=== PATIENT | male | born 1970 | race Caucasian/White ===

== ENCOUNTER 2023-05-23 09:56 | Inpatient (IN) ==
--- NOTE | 2023-05-23 10:02 | Emergency Department Note ---
Impression & Plan Closed hematoma of left kidney, Left renal mass ED Provider Note NAME: ANGELITA LOPEZ AGE: 53 SEX: M : 1970 ARRIVES VIA: Ambulance INFORMANT: Patient, ED PROVIDER(S): Nitesh Nelson MD CHIEF COMPLAINT: Left flank pain HPI: This is a 53-year-old male presenting for left flank pain. Patient states he noticed he had dark urine yesterday possibly bloody. He notes that he had flank pain that began this morning that was sudden onset, sharp. He notes it radiates somewhat into the anterior abdomen. He was given 50 mg of Toradol and 4 mg of Zofran by EMS. He notes no fevers or chills. No diarrhea or constipation. No chest pain or shortness of breath. ROS: See above HPI for pertinent positives & negatives. A total of 10 systems reviewed and were otherwise negative. PAST MEDICAL HISTORY: See Below PAST SURGICAL HISTORY: See Below FAMILY HISTORY: See Below SOCIAL HISTORY: See Below HOME MEDICATIONS: See Below ALLERGIES: See Below VITALS: See Below PHYSICAL EXAMINATION: General: resting comfortably in no acute distress Head: Normocephalic and atraumatic Eyes: Normal inspection, extraocular muscles intact Ear, nose, throat: Normal external exam Neck: Normal range of motion Respiratory: lungs clear to auscultation bilaterally Cardiovascular: Regular rate/rhythm, no murmur GI: soft, nontender, no guarding or rebound Extremities: nontender, moves all extremities Neuro: The patient awake and alert, appropriately conversive, no focal deficits, symmetric faces Skin: Warm, dry, and intact MEDICAL DECISION MAKING: this is a 53-year-old male presents for left flank pain. Consider renal colic, SBO, appendicitis, cholecystitis, UTI or pyelonephritis -Labs reviewed with slightly cytosis of 13.77, anemia to 11.5. Otherwise no significant electrolyte disturbances. Creatinine within normal limits. No transaminitis or lipase elevation -CT imaging of the abdomen/pelvis unfortunately reveals a left subcapsular hematoma with fairly extensive renal mass extending into the renal parenchyma and renal vein -Patient made aware of these findings, he expresses concern about his future health and requested to talk to his girlfriend about next steps -Discussed care with urology team including NATASHA and Dr. Joaquin who states that patient will likely require nephrectomy at another facility but this not emergent. Currently would require embolization if actively bleeding however otherwise would just need pain control. Patient's vital signs remained stable without hypotension. Patient notes improvement in pain as well. Will continue to monitor and admit here -Patient care section under Dr. Yanes -Discussed findings with both the patient and his girlfriend again about need for observing patient's current renal hematoma. Also advised need for follow-up for oncologic surgery/oncologist for official cancer diagnosis Differential diagnosis: See above ER treatment provided: See below Diagnostics interpreted by me: ECG: None Cardiac Monitoring: An order was placed for continuous cardiac monitoring. The monitor shows a rate of 100 with sinus rhythm. Laboratory studies: As stated above and show below. Imaging studies: See below. Past Med/Surg History Medical History (Updated 05/23/23 @ 14:54 by Nitesh Nelson MD) Insulin pump status Adjustment disorder with depressed mood Idiopathic scoliosis Spastic diplegic cerebral palsy HTN (hypertension) Hyperlipidemia Type I diabetes mellitus Surgical History (Updated 05/23/23 @ 14:13 by Jessica Yanes DO) No pertinent past surgical history Family History (Updated 05/23/23 @ 14:13 by Jessica Yanes DO) Grandmother (Paternal) Cancer Social History (Updated 05/23/23 @ 14:13 by Jessica Yanes DO) Smoking Status: Never smoker Do You Dip or Chew Tobacco: No; Hx Alcohol Use: No Hx Substance Use: No Feels Safe at Home: Yes Allergies Allergies Allergy/AdvReac Type Severity Reaction Status Date / Time Sulfa (Sulfonamide Allergy Severe HIVES AND Unverified 05/23/23 12:31 Antibiotics) RASH Home Meds Home Medications Medication Instructions Recorded Confirmed atorvastatin 20 mg tablet 20 mg PO HS 05/23/23 05/23/23 insulin aspart U-100 100 unit/mL See Rx Instructions .Route .COMPLEX 05/23/23 05/23/23 subcutaneous solution (Novolog U-100 Insulin aspart) losartan 50 mg tablet 50 mg PO QAM 05/23/23 05/23/23 metformin 500 mg tablet,extended 2,000 mg PO QAM 05/23/23 05/23/23 release 24 hr pantoprazole 20 mg tablet,delayed 20 mg PO QAM 05/23/23 05/23/23 release sertraline 50 mg tablet 50 mg PO QAM 05/23/23 05/23/23 tamsulosin 0.4 mg capsule 0.4 mg PO QAM 05/23/23 05/23/23 Results & Data (ED) Vital Signs Vital Signs - 24 hr 05/23/23 10:01 05/23/23 10:05 05/23/23 10:09 Temperature 36.7 C Temperature Source Oral Pulse Rate 104 H 104 H Pulse Rate [Right Finger] Pulse Rhythm [Right Finger] Pulse Strength [Right Finger] Respiratory Rate 18 Respiratory Effort / Characteristics Respiratory Depth Respiratory Pattern Blood Pressure 175/102 H Blood Pressure [Right Arm] Blood Pressure Mean 126 Blood Pressure Mean [Right Arm] Blood Pressure Position [Right Arm] Pulse Oximetry 92 94 Oxygen Delivery Method Room Air Room Air Sepsis Recent Fever Within 48 Hours No Sepsis New/Unexplained Change in Mental Status No Sepsis Action Taken by Nursing No Action Required 05/23/23 10:59 05/23/23 12:00 05/23/23 14:00 Temperature Temperature Source Pulse Rate Pulse Rate [Right Finger] 102 H 107 H 104 H Pulse Rhythm [Right Finger] Regular Pulse Strength [Right Finger] Normal Respiratory Rate 29 H 23 Respiratory Effort / Characteristics Non-Labored Non-Labored Spontaneous Respiratory Depth Normal Normal Respiratory Pattern Regular Blood Pressure Blood Pressure [Right Arm] 163/103 H 156/101 H 184/112 H Blood Pressure Mean Blood Pressure Mean [Right Arm] 123 119 136 Blood Pressure Position [Right Arm] Sitting Pulse Oximetry 99 96 98 Oxygen Delivery Method Room Air Room Air Sepsis Recent Fever Within 48 Hours Sepsis New/Unexplained Change in Mental Status Sepsis Action Taken by Nursing Laboratory Data 05/23/23 10:06 05/23/23 10:06 Lab Results 05/23/23 05/23/23 Range/Units 10:06 11:25 WBC 13.77 H (4.8-10.8) K/ul RBC 4.12 L (4.70-6.10) M/uL Hgb 11.5 L (14.0-18.0) g/dl Hct 35.6 L (42.0-52.0) % MCV 86.4 (80.0-100.0) fL MCH 27.9 (25.0-34.0) pg MCHC 32.3 (32.0-36.0) g/dL RDW Std Deviation 45.0 (36.4-46.3) fL RDW Coeff of [place] 14.3 (11.5-14.5) % Plt Count 516 H (130-400) K/uL MPV 9.4 (9.4-12.4) fL Immature Gran % (Auto) 0.7 % Neut % (Auto) 89.0 % Lymph % (Auto) 3.9 % Craig % (Auto) 6.2 % Eos % (Auto) 0.1 % Baso % (Auto) 0.1 % Neut # (Auto) 12.25 H (1.40-6.50) K/uL Lymph # (Auto) 0.54 L (1.20-3.40) K/uL Craig # (Auto) 0.85 H (0.11-0.59) K/uL Eos # (Auto) 0.02 (0.00-0.50) K/uL Baso # (Auto) 0.02 (0.00-0.20) K/uL Immature Gran # (Auto) 0.09 (0.01-0.20) K/uL Sodium 137 (136-145) mmol/L Potassium 3.7 (3.5-5.1) mmol/L Chloride 102 (98-107) mmol/L Carbon Dioxide 25 (21-32) mmol/L Anion Gap 10 (3-11) BUN 19 (6-23) mg/dl Creatinine 0.79 (0.6-1.4) mg/dl Est Cr Clr Drug Dosing 94.3 ml/min Est GFR ( Amer) 120.5 ml/min Est GFR (Non-Af Amer) 104.0 ml/min BUN/Creatinine Ratio 24.1 H (10-20) Glucose 238 H (70-99(Fasting)) mg/dl Calcium 8.9 (8.6-10.3) mg/dl Total Bilirubin 0.4 (0.2-1.0) mg/dl AST 14 (13-39) U/L ALT 12 (7-52) U/L Alkaline Phosphatase 104 (34-104) U/L Troponin I High Sens 4.0 (0-20) pg/ml Total Protein 7.0 (6.0-8.3) gm/dl Albumin 4.0 (3.4-5.0) gm/dl Globulin 3.0 (2.5-4.0) gm/dl Albumin/Globulin Ratio 1.3 (0.9-2) Lipase 25 (11-82) U/L Urine Color Yellow Urine Appearance Clear (Clear) Urine pH 5.0 (4.5-7.5) Ur Specific [place] 1.032 H (1.000-1.030) Urine Protein 2+ H (Negative) Urine Glucose (UA) 3+ H (Negative) Urine Ketones 2+ H (Negative) Urine Blood Trace H (Negative) Urine Nitrite Negative (Negative) Urine Bilirubin Negative (Negative) Urine Urobilinogen Negative (Negative) Ur Leukocyte Esterase Negative (Negative) Urine WBC (Auto) 10-30 H (0-5) /hpf Urine RBC (Auto) 10-30 H (0-4) /hpf U Hyaline Cast (Auto) 1-5 (0-5) /lpf U Epithel Cells (Auto) 20-30 H (0-5) /lpf Urine Bacteria (Auto) Negative (Negative) Administered Medications Discontinued Medications Ioversol (Optiray 320 100ml) 93 ml IV ONCE ONE Stop: 05/23/23 11:41 Last Admin: 05/23/23 11:41 Dose: 93 ml Documented By: RICHELLE Ketorolac Tromethamine (Ketorolac Tromethamine 15 Mg/Ml Vial) Confirm Administered Dose 15 mg .ROUTE .K-MED ONE Stop: 05/23/23 11:02 Last Admin: 05/23/23 11:01 Dose: 15 mg Documented By: CASIE Imaging Data Radiologist's Impression: Abdomen/Pelvis CT 05/23/23 10:01 CT SCAN OF THE ABDOMEN AND PELVIS WITH IV CONTRAST CLINICAL HISTORY: Left flank pain. Hematuria. COMPARISON STUDY: No priors. TECHNIQUE: Following the IV administration of 93 cc of Optiray 320, CT scan of the abdomen and pelvis is performed from the lung bases to the proximal femora. Images are reviewed in the axial, sagittal, and coronal planes. IV contrast was administered without complication. A dose lowering technique was utilized adhering to the principles of ALARA. CT DOSE: 803.35 mGy.cm FINDINGS: Lung bases: The heart is normal in size and without pericardial effusion. The coronary arteries are densely calcified. The lung bases are clear. A small hiatal hernia is noted. Liver: The contrast-enhanced liver is normal in size, contour, and attenuation. There is no intrahepatic biliary ductal dilatation. The hepatic veins and portal veins are patent. Gallbladder: Unremarkable. Spleen: Normal in size and attenuation. Pancreas: Unremarkable. Adrenal glands: Unremarkable. Kidneys: The contrast-enhanced right kidney normal in size and without hydronephrosis. The right kidney enhances normally. There is a subcapsular hemorrhage of the left kidney which measures up to 2.2 cm in thickness. This causes mass effect on the subjacent renal parenchyma. There is a heterogeneously enhancing mass in the interpolar to lower pole of the left kidney which measures 6.6 x 5.1 x 4.6 cm. There is may extend into the renal collecting system. Hyperdense material expanding the ureteropelvic junction on image #127 could represent tumor versus blood clots. There is diminished enhancement of the left kidney as compared to the right. There is evidence of left renal vein invasion on image #112. There is associated left-sided perinephric infiltration. No enhancing lesion is suggested in the right kidney. Abdominal vasculature: The abdominal aorta is normal in course and caliber. Bowel: There is moderate colonic fecal retention. No bowel obstruction is seen. The appendix is normal as visualized. A calcified appendicolith is seen on image #220. Peritoneum: There is no intraperitoneal free air or abdominal ascites. There is a fat-containing umbilical hernia. Lymphadenopathy: None. Pelvic viscera: The prostate gland is enlarged and heterogeneous. The bladder wall is thickened/trabeculated indicating chronic outlet obstruction. There is a fat containing right groin hernia. Skeletal structures: There are bilateral pars defects at L5 with severe disc space narrowing and 9 mm anterolisthesis at L5-S1. No lytic or blastic lesions are seen. IMPRESSION: 1. There is an acute subcapsular hemorrhage of the left kidney as above. This causes mass effect on the subjacent parenchyma. 2. This is likely secondary to a 6.6 cm heterogeneously enhancing left renal mass. A renal cell carcinoma versus transitional cell carcinoma are the top considerations. Urology assessment is advised. 3. This likely invades the renal collecting system. Hyperdense material at the ureteropelvic junction could represent tumor versus blood clots. 4. There is evidence of left renal vein invasion. 5. No foci of distant metastatic disease are seen in the abdomen or pelvis. 6. Additional findings as above. ACT 112: Positive. There are findings on this exam that require communication between the performing entity and the patient following Patient Test Result Information Act ([place] Act 112) guidelines. Electronically signed by: Avila Graham M.D. 05/23/2023 12:08 PM Discharge Plan Visit Data Chief Complaint: Flank Pain ED Provider: Nitesh Nelson Discharge Problem: Closed hematoma of left kidney, Left renal mass Forms Stand Alone Forms: My [facility] Prescriptions Prescriptions: No Action losartan 50 mg tablet 50 mg PO QAM atorvastatin 20 mg tablet 20 mg PO HS pantoprazole 20 mg tablet,delayed release (DR/EC) 20 mg PO QAM tamsulosin 0.4 mg capsule 0.4 mg PO QAM insulin aspart U-100 [Novolog U-100 Insulin aspart] 100 unit/mL solution See Rx Instructions .ROUTE .COMPLEX Rx Instructions: Use up to 90 units daily in insulin pump metformin 500 mg tablet extended release 24 hr 2,000 mg PO QAM sertraline 50 mg tablet 50 mg PO QAM Referrals Referrals: PCP,NO [Physician] -
[2023-05-23 10:21] LABS: Basophils # (auto) 0.02 K/uL (0.00-0.20); Basophils % (auto) 0.1 %; Eosinophils # (auto) 0.02 K/uL (0.00-0.50); Eosinophils % (auto) 0.1 %; Hematocrit (blood only) 35.6 % (42.0-52.0); Hemoglobin 11.5 g/dl (14.0-18.0); Immature Granulocytes # (auto) 0.09 K/uL (0.01-0.20); Immature Granulocytes % (auto) 0.7 %; Lymphocytes # (auto) 0.54 K/uL (1.20-3.40); Lymphocytes % (auto) 3.9 %; Mean Corpuscular Hemoglobin 27.9 pg (25.0-34.0); Mean Corpuscular Hgb Conc 32.3 g/dL (32.0-36.0); Mean Corpuscular Volume 86.4 fL (80.0-100.0); Mean Platelet Volume 9.4 fL (9.4-12.4); Monocytes # (auto) 0.85 K/uL (0.11-0.59); Monocytes % (auto) 6.2 %; Neutrophils # (auto) 12.25 K/uL (1.40-6.50); Platelet Count 516 K/uL (130-400); RDW Coefficient of Variation 14.3 % (11.5-14.5); Red Blood Count 4.12 M/uL (4.70-6.10); White Blood Count 13.77 K/ul (4.8-10.8)
[2023-05-23 10:53] LABS: Albumin Globulin Ratio 1.3 (0.9-2); BUN Creatinine Ratio 24.1 (10-20); Bilirubin,Total 0.4 mg/dl (0.2-1.0); Calcium 8.9 mg/dl (8.6-10.3); Creatinine Clr Calc Pharmacy 94.3 ml/min; Est GFR (African American) 120.5 ml/min; Potassium 3.7 mmol/L (3.5-5.1)
[2023-05-23] MEDS: KETOROLAC TROMETHAMINE 15 MG/ML VIAL ONE (11:01)
[2023-05-23] MEDS: OPTIRAY 320 100ml IV ONE (11:41)
--- NOTE | 2023-05-23 12:09 | CT Scan Report ---
CT SCAN OF THE ABDOMEN AND PELVIS WITH IV CONTRAST CLINICAL HISTORY: Left flank pain. Hematuria. COMPARISON STUDY: No priors. TECHNIQUE: Following the IV administration of 93 cc of Optiray 320, CT scan of the abdomen and pelvi s is performed from the lung bases to the proximal femora. Images are reviewed in the axial, sagittal , and coronal planes. IV contrast was administered without complication. A dose lowering technique wa s utilized adhering to the principles of ALARA. CT DOSE: 803.35 mGy.cm FINDINGS: Lung bases: The heart is normal in size and without pericardial effusion. The coronary arteries are d ensely calcified. The lung bases are clear. A small hiatal hernia is noted. Liver: The contrast-enhanced liver is normal in size, contour, and attenuation. There is no intrahepa tic biliary ductal dilatation. The hepatic veins and portal veins are patent. Gallbladder: Unremarkable. Spleen: Normal in size and attenuation. Pancreas: Unremarkable. Adrenal glands: Unremarkable. Kidneys: The contrast-enhanced right kidney normal in size and without hydronephrosis. The right kidn ey enhances normally. There is a subcapsular hemorrhage of the left kidney which measures up to 2.2 c m in thickness. This causes mass effect on the subjacent renal parenchyma. There is a heterogeneously enhancing mass in the interpolar to lower pole of the left kidney which measures 6.6 x 5.1 x 4.6 cm. There is may extend into the renal collecting system. Hyperdense material expanding the ureteropelvi c junction on image #127 could represent tumor versus blood clots. There is diminished enhancement of the left kidney as compared to the right. There is evidence of left renal vein invasion on image #11 2. There is associated left-sided perinephric infiltration. No enhancing lesion is suggested in the r ight kidney. Abdominal vasculature: The abdominal aorta is normal in course and caliber. Bowel: There is moderate colonic fecal retention. No bowel obstruction is seen. The appendix is ricky l as visualized. A calcified appendicolith is seen on image #220. Peritoneum: There is no intraperitoneal free air or abdominal ascites. There is a fat-containing umbi lical hernia. Lymphadenopathy: None. Pelvic viscera: The prostate gland is enlarged and heterogeneous. The bladder wall is thickened/trabe culated indicating chronic outlet obstruction. There is a fat containing right groin hernia. Skeletal structures: There are bilateral pars defects at L5 with severe disc space narrowing and 9 mm anterolisthesis at L5-S1. No lytic or blastic lesions are seen. IMPRESSION: 1. There is an acute subcapsular hemorrhage of the left kidney as above. This causes mass effect on t he subjacent parenchyma. 2. This is likely secondary to a 6.6 cm heterogeneously enhancing left renal mass. A renal cell carci noma versus transitional cell carcinoma are the top considerations. Urology assessment is advised. 3. This likely invades the renal collecting system. Hyperdense material at the ureteropelvic junction could represent tumor versus blood clots. 4. There is evidence of left renal vein invasion. 5. No foci of distant metastatic disease are seen in the abdomen or pelvis. 6. Additional findings as above. ACT 112: Positive. There are findings on this exam that require communication between the performing entity and the patient following Patient Test Result Information Act ([place] Act 112) guidelines. Electronically signed by: Avila Graham M.D. 05/23/2023 12:08 PM
[2023-05-23 12:21] LABS: Appearance Urine Clear (Clear); Bacteria Urine Automated Negative (Negative); Bilirubin Urine Negative (Negative); Blood Urine Trace (Negative); Color Urine Yellow; Epithelial Cell Urine Auto 20-30 /lpf (0-5); Glucose Urine UA 3+ (Negative); Ketones Urine 2+ (Negative); Leukocyte Esterase Urine Negative (Negative); Nitrite Urine Negative (Negative); Protein Urine 2+ (Negative); Specific Gravity Urine 1.032 (1.000-1.030); Urobilinogen Urine Negative (Negative)
[2023-05-23] MEDS ORDERED: PHARMACY GLYCEMIC MGMT CONSULT PRN (14:18)
--- NOTE | 2023-05-23 14:22 | History & Physical Report ---
Date of Service May 23, 2023 Assessment & Plan (1) Left renal mass: Plan: Acute, likely the cause of his flank pain, anemia, and gross hematuria. Causes include but not limited to RCC or transitional cell carcinoma as top considerations in the differential diagnosis. There is some local invasion into vasculature, but no other mets seen on abdominal imaging. Urology is aware of patient and will assist with treatment options. Cont supportive care for pain, nausea, etc. Defer to urology for additional staging and plan. (2) Anemia: Plan: Per outpatient records, H/H was 13.4/42.6 in Feb 2023. Now 11.5/35.6 likely related to new onset malignancy. Gross hematuria noted. Cont to trend CBC. No transfusion needed at this time. (3) HTN (hypertension): Plan: chronic, at goal. Cont home losartan per regimen. (4) Hyperlipidemia: Plan: chronic, stable. Cont atorvastatin per home regimen. (5) Type I diabetes mellitus: Plan: chronic, uncontrolled. Hold metformin and insulin pump while inpatient. Glycemic pharmacist consulted to help with management of this and transition back to insulin pump closer to discharge. (6) Spastic diplegic cerebral palsy: Plan: per history, ambulates with forearm crutches at baseline. (7) Adjustment disorder with depressed mood: Plan: chronic, stable. Pt is upset with recent diagnosis which is normal bereavement. Cont sertraline per home regimen. DVT proph: SCDs/ambulation. Chemoprophylaxis held 2/2 hematuria and worsening anemia, however, this should be reconsidered if H/H is stable given his elevated risk of DVT. Full Code Dispo- med tele I spent a total of 75minutes coordinating, documenting, and providing care for this patient excluding time spent in the performance of separately billed services Jessica Yanes DO [facility] Hospitalist History of Present Illness Chief Complaint: flank pain Primary Care Provider: Blossom Gibson MD 53 yo M presents for left flank pain. Saw his PCP for left flank pain two weeks ago. Blood noted in urine yesterday and then acute flank pain this morning that was sharp and radiating into his anterior abdomen. Denies fevers, chills, SOB, chest pain. Workup in the ER reveals a new 6.6cm enhancing mass in the left kidney with acute subcapsular hemorrhage. Renal cell carcinoma vs transitional cell carcinoma are considered in the differential diagnosis. This appears to invade the renal collecting system, and there is hyperdense material at the ureteropelvic junction which could represent tumor or blood clots. There is evidence of left renal vein invasion. No evidence of distant mets is seen in the a/p. Some nausea today, some loose stool that was brown. Allergies Allergy/AdvReac Type Severity Reaction Status Date / Time Sulfa (Sulfonamide Allergy Severe HIVES AND Unverified 05/23/23 12:31 Antibiotics) RASH Home Medications Medication Instructions Recorded Confirmed Type atorvastatin 20 mg tablet 20 mg PO HS 05/23/23 05/23/23 History insulin aspart U-100 100 unit/mL See Rx Instructions .Route .COMPLEX 05/23/23 05/23/23 History subcutaneous solution (Novolog U-100 Insulin aspart) losartan 50 mg tablet 50 mg PO QAM 05/23/23 05/23/23 History metformin 500 mg tablet,extended 2,000 mg PO QAM 05/23/23 05/23/23 History release 24 hr pantoprazole 20 mg tablet,delayed 20 mg PO QAM 05/23/23 05/23/23 History release sertraline 50 mg tablet 50 mg PO QAM 05/23/23 05/23/23 History tamsulosin 0.4 mg capsule 0.4 mg PO QAM 05/23/23 05/23/23 History Past Med/Surg History Medical History Insulin pump status Adjustment disorder with depressed mood Idiopathic scoliosis Spastic diplegic cerebral palsy HTN (hypertension) Hyperlipidemia Type I diabetes mellitus Surgical History (Updated 05/23/23 @ 14:13 by Jessica Yanes DO) No pertinent past surgical history Family History (Updated 05/23/23 @ 14:13 by Jessica Yanes DO) Grandmother (Paternal) Cancer Social History (Updated 05/23/23 @ 15:51 by Jessica Yanes DO) Smoking Status: Never smoker Do You Dip or Chew Tobacco: No; Hx Alcohol Use: No Hx Substance Use: No Preferred Language: Danish Communication Ability: Effective D[employer] Worker Required: No Beliefs That Will Affect Care: None marital status: Life Partner marital status details: lives with girlfriend, they have an apt together Current Living Situation: Alone Current Living Situation Comment: geovanny (LAUREANO) resides in same building Feels Safe at Home: Yes Safety Concerns: Feels Safe At This Time Assistive Devices: Crutches and Scooter/Electric Scooter Physical Exam Physical Exam: CONSTITUTIONAL: WNWD, vitals as above, generally well-appearing, NAD EYES: normal conjunctivae, no scleral icterus ENT: external ear and nose normal, MMM NECK: trachea midline RESPIRATORY: clear to auscultation bilaterally, no crackles, rales or wheezes, normal respiratory effort CARDIOVASCULAR: regular rate and rhythm, S1 and 2 heard without murmurs, gallops or rubs, no JVD, no peripheral edema CHEST: inspection of chest was normal GASTROINTESTINAL: soft, NTND, no guarding, no CVA tenderness MUSCULOSKELETAL: strength 5/5 throughout, head is normocephalic and atraumatic SKIN: warm and dry NEUROLOGIC: CN 2-12 grossly intact, no sensory deficit, normal cognition, normal speech, no tremor PSYCHIATRIC: alert cooperative and oriented to person, place and time. Euthymic mood, makes good eye contact, language grossly intact, recent and remote memory grossly intact Results & Data Results & Data Vital Signs (Past 12 Hours) Vital Signs Temp Pulse Pulse Resp BP BP Pulse Ox 05/23/23 12:00 107 H 156/101 H 96 05/23/23 10:59 102 H 29 H 163/103 H 99 05/23/23 10:09 104 H 05/23/23 10:05 94 05/23/23 10:01 36.7 C 104 H 18 175/102 H 92 O2 Del Method 05/23/23 12:00 05/23/23 10:59 Room Air 05/23/23 10:09 05/23/23 10:05 Room Air 05/23/23 10:01 Room Air Laboratory Results Short CBC 05/23/23 Range/Units 10:06 WBC 13.77 H (4.8-10.8) K/ul Hgb 11.5 L (14.0-18.0) g/dl Hct 35.6 L (42.0-52.0) % Plt Count 516 H (130-400) K/uL BMP 05/23/23 10:06 Sodium 137 Potassium 3.7 Chloride 102 Carbon Dioxide 25 BUN 19 Creatinine 0.79 Glucose 238 H Calcium 8.9 Liver Function 05/23/23 Range/Units 10:06 Total Bilirubin 0.4 (0.2-1.0) mg/dl AST 14 (13-39) U/L ALT 12 (7-52) U/L Alkaline Phosphatase 104 (34-104) U/L Albumin 4.0 (3.4-5.0) gm/dl Urine 05/23/23 Range/Units 11:25 Urine Color Yellow Urine Appearance Clear (Clear) Urine pH 5.0 (4.5-7.5) Ur Specific Glide 1.032 H (1.000-1.030) Urine Protein 2+ H (Negative) Urine Glucose (UA) 3+ H (Negative) Diagnostic Findings Abdomen/Pelvis CT 05/23/23 10:01 CT SCAN OF THE ABDOMEN AND PELVIS WITH IV CONTRAST CLINICAL HISTORY: Left flank pain. Hematuria. COMPARISON STUDY: No priors. TECHNIQUE: Following the IV administration of 93 cc of Optiray 320, CT scan of the abdomen and pelvis is performed from the lung bases to the proximal femora. Images are reviewed in the axial, sagittal, and coronal planes. IV contrast was administered without complication. A dose lowering technique was utilized adhering to the principles of ALARA. CT DOSE: 803.35 mGy.cm FINDINGS: Lung bases: The heart is normal in size and without pericardial effusion. The coronary arteries are densely calcified. The lung bases are clear. A small hia karina hernia is noted. Liver: The contrast-enhanced liver is normal in size, contour, and attenuation. There is no intrahepatic biliary ductal dilatation. The hepatic veins and portal veins are patent. Gallbladder: Unremarkable. Spleen: Normal in size and attenuation. Pancreas: Unremarkable. Adrenal glands: Unremarkable. Kidneys: The contrast-enhanced right kidney normal in size and without hydronephrosis. The right kidney enhances normally. There is a subcapsular hemorrhage of the left kidney which measures up to 2.2 cm in thickness. This causes mass effect on the subjacent renal parenchyma. There is a heterogeneously enhancing mass in the interpolar to lower pole of the left kidney which measures 6.6 x 5.1 x 4.6 cm. There is may extend into the renal collecting system. Hyperdense material expanding the ureteropelvic junction on image #127 could represent tumor versus blood clots. There is diminished enhancement of the left kidney as compared to the right. There is evidence of left renal vein invasion on image #112. There is associated left-sided perinephric infiltration. No enhancing lesion is suggested in the right kidney. Abdominal vasculature: The abdominal aorta is normal in course and caliber. Bowel: There is moderate colonic fecal retention. No bowel obstruction is seen. The appendix is normal as visualized. A calcified appendicolith is seen on image #220. Peritoneum: There is no intraperitoneal free air or abdominal ascites. There is a fat-containing umbilical hernia. Lymphadenopathy: None. Pelvic viscera: The prostate gland is enlarged and heterogeneous. The bladder wall is thickened/trabeculated indicating chronic outlet obstruction. There is a fat containing right groin hernia. Skeletal structures: There are bilateral pars defects at L5 with severe disc space narrowing and 9 mm anterolisthesis at L5-S1. No lytic or blastic lesions are seen. IMPRESSION: 1. There is an acute subcapsular hemorrhage of the left kidney as above. This causes mass effect on the subjacent parenchyma. 2. This is likely secondary to a 6.6 cm heterogeneously enhancing left renal mass. A renal cell carcinoma versus transitional cell carcinoma are the top considerations. Urology assessment is advised. 3. This likely invades the renal collecting system. Hyperdense material at the ureteropelvic junction could represent tumor versus blood clots. 4. There is evidence of left renal vein invasion. 5. No foci of distant metastatic disease are seen in the abdomen or pelvis. 6. Additional findings as above. ACT 112: Positive. There are findings on this exam that require communication between the performing entity and the patient following Patient Test Result Information Act ([place] Act 112) guidelines. Electronically signed by: Avila Graham M.D. 05/23/2023 12:08 PM Code Status & VTE Plan VTE Prophylaxis Plan VTE Prophylaxis will be ordered: Yes
[2023-05-23] MEDS ORDERED: CARBOHYDRATES FOR HYPOGLYCEMIA PO PRN ×2 (15:00→17:31)
[2023-05-23] MEDS ORDERED: DEXTROSE 50% 50 ML SYRINGE IV PRN ×2 (15:00→17:31)
[2023-05-23] MEDS ORDERED: GLUCAGON FOR INJ 1 MG VIAL IM PRN (15:00)
[2023-05-23] MEDS ORDERED: GLUCOSE 10 TAB/TUBE PO PRN ×2 (15:00→17:31)
[2023-05-23] MEDS ORDERED: GLUCOSE 40% GEL 15 GM TUBE PO PRN ×2 (15:00→17:31)
--- NOTE | 2023-05-23 15:29 | Pharmacy Report ---
Pharmacy Glycemic Short Note 2 - Date of Service May 23, 2023 - Glycemic Short BSG Results (Last 24 hours): 05/23/23 10:06 Glucose 238 H OUTPATIENT ANTIDIABETIC REGIMEN: * Novolog insulin pump (per [facility] note 05/10/23) * Basal-19.8 units/day (1.0 units/hr 0327-3698, 0.8 units/hr 8330-6149) * Carb Ratio- 6 gm CHO per unit 2486-9707, 8 gm CHO per unit 6435-5210 * Sensitivity factor- 45 units mg/dL/unit * Target BSG -120mg/dL * Correct above- 140mg/dL * metformin ER 2000mg QAM * HbA1c 7.7% (03/23/23) ASSESSMENT: * Corey is a 53 YOM admitted with flank pain and a history of Type 1 diabetes mellitus. Pharmacy has been consulted for glycemic management while inpatient. * Per H&P by Dr. Yanes, plan is to remove insulin pump and start SQ basal bolus insulin. Fasting BSG elevated, patient is currently NPO, will reduce basal insulin by ~25% while NPO. * Novolog initiated at pump settings from [facility] note 05/10/23 PLAN FOR INPATIENT GLYCEMIC CONTROL: * Hold outpatient oral diabetes medications and insulin pump * Basal insulin * Lantus 15 units x1 * Bolus insulin * NovoLog per scale ACHS or Q6hrs while NPO * Goal Range: Low 110 mg/dL - [id number] mg/dL * Correction Factor: 45 mg/dL/unit * Nutritional / Prandial insulin per carb ratio of 1 unit per 8 grams CHO consumed
[2023-05-23] MEDS: LANTUS PER UNIT CHARGE SC ONE (15:44)
[2023-05-23] MEDS: traMADol HCL 50 MG TABLET PO STA (16:25)
[2023-05-23] MEDS: ACETAMINOPHEN 500 MG TAB PO SCH (16:26)
[2023-05-23] MEDS ORDERED: INSULIN ASPART PER UNIT CHARGE SC SCH (17:31)
[2023-05-23] MEDS ORDERED: GLUCAGON FOR INJ 1 MG VIAL SQ PRN (17:31)
[2023-05-23] MEDS ORDERED: ACETAMINOPHEN 325 MG TAB PO PRN (17:31)
[2023-05-23] MEDS: INSULIN ASPART PER UNIT CHARGE SC SCH (18:27)
[2023-05-23] MEDS ORDERED: LANTUS PER UNIT CHARGE SQ SCH (21:00)
[2023-05-23] MEDS: MoRPHine SULFATE 2 MG/ML CARP IV PRN (21:05)
[2023-05-24 06:42] LABS: Hematocrit (blood only) 35.9 % (42.0-52.0); Hemoglobin 11.4 g/dl (14.0-18.0); Mean Corpuscular Hemoglobin 27.4 pg (25.0-34.0); Mean Corpuscular Hgb Conc 31.8 g/dL (32.0-36.0); Mean Corpuscular Volume 86.3 fL (80.0-100.0); Mean Platelet Volume 9.2 fL (9.4-12.4); Platelet Count 500 K/uL (130-400); RDW Coefficient of Variation 14.6 % (11.5-14.5); RDW Standard Deviation 46.2 fL (36.4-46.3); Red Blood Count 4.16 M/uL (4.70-6.10); White Blood Count 11.95 K/ul (4.8-10.8)
[2023-05-24 07:01] LABS: BUN Creatinine Ratio 21.4 (10-20); Creatinine Clr Calc Pharmacy 74.7 ml/min; Est GFR (Non-African American) 88.9 ml/min; Potassium 3.9 mmol/L (3.5-5.1)
[2023-05-24] MEDS: POLYETHYLENE (MIRALAX) 17 GM PACK PO PRN (07:36)
[2023-05-24 07:41] LABS: Estimated Average Glucose 171 mg/dl; Hemoglobin A1C 7.6 % (4.5-5.6)
--- NOTE | 2023-05-24 08:42 | Urology Consultation ---
Date of Consultation May 24, 2023 Assessment & Plan (1) Left renal mass: (2) Closed hematoma of left kidney: Plan 6 cm left renal mass with a spontaneous bleed Currently hemodynamically stable Discussed the underlying pathology being concerning for malignancy I would like to reimage him with more appropriate imaging after some resolution of his acute episode He ultimately will likely require surgical intervention but his centrally located mass is difficult to discern between RCC and TCC Will send a urine cytology now I would like him to remain stable for the next 24 hours before discharge, at this time I do not believe he warrants any transfer or consideration of inte rventional radiology embolization Will plan for short-term outpatient follow-up to devise a long-term plan for management History of Present Illness Attending Physician: Yelena Stephenson MD History of Present Illness 53-year-old presented through the emergency room yesterday after sudden onset of severe left flank pain yesterday morning Upon arrival he had CT imaging which shows a mass within the left kidney and a subcapsular hematoma Vitals were essentially stable aside from slight elevation of his BP and pulse Hemoglobin 11.5 on arrival and remained stable this morning at 11.4 Creatinine 0.98 He reports that he is subjectively feeling much better today He has some persistent pain but nothing on that level of severity that he experienced yesterday He had no awareness of a renal mass prior to yesterday's ER visit Today we discussed his imaging findings, his lab work, and a plan moving forward Allergies Allergy/AdvReac Type Severity Reaction Status Date / Time Sulfa (Sulfonamide Allergy Severe HIVES AND Unverified 05/23/23 12:31 Antibiotics) RASH Home Medications Medication Instructions Recorded Confirmed Type atorvastatin 20 mg tablet 20 mg PO HS 05/23/23 05/23/23 History insulin aspart U-100 100 unit/mL See Rx Instructions .Route .COMPLEX 05/23/23 05/23/23 History subcutaneous solution (Novolog U-100 Insulin aspart) losartan 50 mg tablet 50 mg PO QAM 05/23/23 05/23/23 History metformin 500 mg tablet,extended 2,000 mg PO QAM 05/23/23 05/23/23 History release 24 hr pantoprazole 20 mg tablet,delayed 20 mg PO QAM 05/23/23 05/23/23 History release sertraline 50 mg tablet 50 mg PO QAM 05/23/23 05/23/23 History tamsulosin 0.4 mg capsule 0.4 mg PO QAM 05/23/23 05/23/23 History Patient History Medical History Insulin pump status Adjustment disorder with depressed mood Idiopathic scoliosis Spastic diplegic cerebral palsy HTN (hypertension) Hyperlipidemia Type I diabetes mellitus Surgical History No pertinent past surgical history Family History Grandmother (Paternal) Cancer Social History Smoking Status: Never smoker Do You Dip or Chew Tobacco: No; Hx Alcohol Use: No Hx Substance Use: No Preferred Language: Slovak Communication Ability: Effective Management Trainee Required: No Beliefs That Will Affect Care: None marital status: Life Partner marital status details: lives with girlfriend, they have an apt together Current Living Situation: Alone Current Living Situation Comment: geovanny TOVAR) resides in same building Feels Safe at Home: Yes Safety Concerns: Feels Safe At This Time Assistive Devices: Crutches and Scooter/Electric Scooter Review of Systems Constitutional: no fever, no chills and no fatigue Eyes: no worsening vision Ear, Nose, Mouth, Throat: no facial pain and no pain with swallowing Respiratory: no cough and no dyspnea Cardiovascular: no chest pain and no palpitations Gastrointestinal: + abdominal pain and + nausea; no vomiti ng Genitourinary: + hematuria Musculoskeletal: no back pain Integumentary: no rash and no urticaria Neurologic: no gait abnormality and no unsteadiness Psychiatric: no behavioral changes and no depression Endocrine: no fatigue Physical Exam Physical Exam: Modest left flank tenderness to palpation Moderate left hemiabdominal tenderness to palpation No rebound, no guarding, no visible ecchymosis Constitutional: well developed and well nourished Respiratory: no respiratory distress Cardiovascular: Extremities: no pedal edema Gastrointestinal (Abdomen): Inspection/Auscultation: abdomen normal to inspection Results & Data Vital Signs (Past 12 Hours) Vital Signs Temp Pulse Pulse Resp BP Pulse Ox O2 Del Method 05/24/23 07:50 36.6 C 105 H 20 164/97 H 98 Room Air 05/24/23 07:30 Room Air 05/24/23 07:00 89 05/24/23 03:55 36.7 C 94 H 16 153/91 H 98 Room Air 05/23/23 23:11 37 C 108 H 18 137/74 95 Room Air 05/23/23 22:00 117 H PG Care Time/CCT Total # of Minutes Spent Total Time Spent with Patient: Total time spent is greater than 50% in coordination of care (as documented) at patient's floor/unit and/or counseling patient: Coding Level of Care Code 46240 IN/OBS CONSULT LVL 4,60M Diagnoses Left renal mass N28.89 Closed hematoma of left kidney S37.012A
[2023-05-24] MEDS: DOCUSATE SODIUM/SENNA 50/8.6MG TAB PO SCH (09:00)
[2023-05-24] MEDS: bisacodyL 5 MG TABEC PO ONE (09:00)
[2023-05-24] MEDS: LANTUS PER UNIT CHARGE SC SCH (09:00)
[2023-05-24] MEDS: POLYETHYLENE (MIRALAX) 17 GM PACK PO SCH (09:02)
--- NOTE | 2023-05-24 09:26 | Pharmacy Report ---
Pharmacy Glycemic Short Note 2 - Date of Service May 24, 2023 - Glycemic Short BSG Results (Last 24 hours): 05/23/23 05/23/23 05/23/23 10:06 17:29 20:17 Glucose 238 H POC Glucose 122 H 255 H 05/23/23 05/24/23 05/24/23 23:51 03:46 06:17 Glucose 210 H POC Glucose 247 H 207 H 05/24/23 08:11 Glucose POC Glucose 266 H OUTPATIENT ANTIDIABETIC REGIMEN: * NovoLog insulin pump (per [employer] [facility] note 05/10/23) * Basal-19.8 units/day (1.0 units/hr 8073-7672, 0.8 units/hr 3181-6020) * Carb Ratio- 6 gm CHO per unit 6970-1691, 8 gm CHO per unit 2535-3151 * Sensitivity factor- 45 units mg/dL/unit * Target BSG -120mg/dL * Correct above- 140mg/dL * metformin ER 2000mg QAM * HbA1c 7.7% (03/23/23) ASSESSMENT: 05/24/23 * Blood sugars above goal last night and this morning, patient received 15 units basal and 9 units bolus yesterday. * Increase basal and tighten CF/CR at this time, titrate to goal. 05/23/23 * Corey is a 53 YOM admitted with flank pain and a history of Type 1 diabetes mellitus. Pharmacy has been consulted for glycemic management while inpatient. * Per H&P by Dr. Yanes, plan is to remove insulin pump and start SQ basal bolus insulin. Fasting BSG elevated, patient is currently NPO, will reduce basal insulin by ~25% while NPO. * Novolog initiated at pump settings from [employer] [facility] note 05/10/23 PLAN FOR INPATIENT GLYCEMIC CONTROL: * Hold outpatient oral diabetes medications and insulin pump * Basal insulin * Lantus 20 units SQ daily * Bolus insulin * NovoLog per scale ACHS or Q6hrs while NPO * Goal Range: Low 110 mg/dL - High 140 mg/dL * Correction Factor: 35 mg/dL/unit * Nutritional / Prandial insulin per carb ratio of 1 unit per 7 grams CHO consumed
--- OUTSIDE RECORDS SUMMARY | 2023-05-24 10:57 | External Medical Summary | Summary of Care ---
Author Name Unknown Organization [facility] Address [address] [facility] [place] [address] Phone [phone] Care Team Providers Care Inverter And Clipper Name Role Phone Blossom Gibson MD Primary Care Provide r Reason for Visit * Reason Comments Dosage Adjustment In Person (Anticoag Cl inic) Diabetes Follow-Up Encounter Details Date Type Department Care Team (Late st Contact Info) Description 05/10/2023 2:20 PM EDT Office Visit Pharmacy, [address] [place] [address] [place] [address] Type 1 diabetes mellitus with hemoglobin A1c goal of less than 7.0% ([facility])* Allergies Active Allergy Reactions Criticality Noted Date Comments Sulfa Antibiotics Rash Medium 10/07/2013 documented as of this encounter (statuses as of 05/10/2023) Medications Medication Sig Dispensed Refills Start Date End Date Status D 1999 1999 UNITS PO TABSIndications:V itamin D deficiency 1 TABLET DAILY 1999 Tab 5 11/18/2013 Active Blood Glucose Monitoring Suppl (ONE TOUCH ULTRA 2) W/DEVICE KITIndications:DM type 2 goal A1C below 7.5 Use as directed to test blood sugar; dx 250.00 1 Each 0 09/16/2014 Active ONETOUCH LANCETS MISC Check finger stick 6 times daily 200 Each 5 12/29/2014 Active Ketostix In Vitro Strip (Acetone (Urine) Test) Test urine for ketones every 2 hours if you experience nausea, vomiting and abdominal pain. 50 Strip 5 06/08/2022 Active Gvoke HypoPen 2-Pack 1 MG/0.2ML Subcutaneous Solution Auto-injector (Glucagon) Inject 1.0 mg under the skin of belly/thigh or upper arm as needed for unresponsiveness due to suspected hypoglycemia 0.4 mL 11 06/08/2022 Active Insulin Glargine Solostar 100 UNIT/ML Subcutaneous Solution Pen-injector (Lantus SoloStar) FOR PUMP BACK UP: Injected under the skin, one time(s) per day:18 units. TDD: 20. ICD10: E11.9 15 mL 11 06/08/2022 Active BD Pen Needle Noemi U/F 32G X 4 MM (Insulin Pen Needle) Use four times daily w/ insulin 100 Each 11 06/08/2022 Active Insulin Syringe-Needle U-100 31G X 5/16" 0.3 ML (B-D INSULIN SYRINGE ULTRAFINE) For pump back up: injecting insulin 4 times daily. E10.9 100 Each 5 06/08/2022 Active Omnipod 5 G6 Pod (Gen 5) Use a new pod every 72 hours to administer insulin (30 pods for 90 days) 6 Each 3 12/12/2022 Active Pantoprazole Sodium 20 MG Oral Tablet Delayed Release (Protonix)Indicat ions:Gastroesopha geal reflux disease with esophagitis without hemorrhage TAKE ONE TABLET IN THE MORNING 90 Tablet 3 01/05/2023 Active Insulin Aspart 100 UNIT/ML Injection Solution (NovoLOG)Indicati ons:Type 2 diabetes mellitus with hemoglobin A1c goal of less than 8.5% (HCC) Use up to 90 units daily in insulin pump 90 mL 3 03/13/2023 Active Atorvastatin Calcium 20 MG Oral Tablet (Lipitor)Indicati ons:Type 2 diabetes mellitus with hemoglobin A1c goal of less than 8.5% (HCC),Hyperlipide alfonso with target LDL less than 100 TAKE ONE TABLET AT BEDTIME 90 Tablet 1 03/30/2023 Active Sertraline HCl 50 MG Oral Tablet (Zoloft)Indicatio ns:Adjustment disorder with depressed mood TAKE ONE TABLET IN THE MORNING 90 Tablet 1 03/30/2023 Active metFORMIN HCl ER 500 MG Oral Tablet Extended Release 24 Hour (Glucophage XR)Indications:Ty pe 2 diabetes mellitus with hemoglobin A1c goal of less than 8.5% (HCC) TAKE 4 TABLETS IN THE MORNING 360 Tablet 1 03/30/2023 Active Tamsulosin HCl 0.4 MG Oral Capsule (Flomax)Indicatio ns:Urinary hesitancy TAKE ONE CAPSULE IN THE MORNING 90 Capsule 1 03/30/2023 Active Losartan Potassium 50 MG Oral Tablet (Cozaar)Indicatio ns:HTN, goal below 140/90 Take 1 Tablet by mouth in the morning. 30 Tablet 5 04/21/2023 Active Baclofen 10 MG Oral Tablet (Lioresal)Indicat ions:Chronic bilateral low back pain without sciatica Take 1 Tablet by mouth at bedtime as needed for Pain. 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 Primary hypertension Hyperlipidemia with target LDL less than 100 Overview: ICD-10 update of inactive term Vitamin D deficiency Adjustment disorder with depressed mood documented as of this encounter (statuses as of 05/10/2023) Resolved Problems Problem Noted Date Diagnosed Date Resolved Date Type 2 diabetes mellitus wit h hemoglobin A1c goal of less than 7.5% 11/29/2013 12/29/2014 Overview: ICD-10 update of inactive term HYPERTENSION NOS 04/05/2001 01/06/2014 Reflux esophagitis Type 2 diabetes mellitus wit h hemoglobin A1c goal of less than 7.0% 01/06/2014 Overview: ICD-10 update of inactive term documented as of this encounter (statuses as of 05/10/2023) Immunizations Name Administration Dates Next Due COVID-19 mRNA, LNP-s, No Pre serve, 2-Dose Series ([employer]) 02/23/2021,06/06/2020,05/16/2020 Hepatitis B, 20+ yrs 07/16/2015,02/05/2015,01/08 Pneumococcal Conjugate Vacci ne, 20-valent ([id number]) 08/23/2021 Pneumococcal Polysaccharide PPV23 (Pneumovax) 01/06/2014 Seasonal Influenza, PF, 6 M & above, IM , (FluLaval or Fluzone) 04/21/2023,12/08/2021,12/17/2020,12/11,12/26/2018,12/27/2017,01/04/2017 Seasonal Influenza, Quadriva lent, No Preserve, IM 11/19/2015 Seasonal Influenza, Split, I IV3, With Preserve, Inj 11/13/2014,11/11/2013 TDAP (age 10 and older)(Boostrix) 09/14/2017 documented as of this encounter Social History Tobacco Use Types Packs/Day Years Used Date Smoking Tobacco: Never Smokeless Tobacco: Never Alcohol Use Standard Drinks/Week Comments Yes 0 (1 standard drink = 0.6 oz pur e alcohol) rare beer PHQ-2 Answer Date Recorded PHQ-2 Score -1 12/12/2019 Hunger Vital Sign Answer Date Recorded Worried About Running Out of Food in the Last Ye ar Never true 09/25/2018 Ran Out of Food in the Last Year Never true 09/25/2018 Sex and Gender Information Value Date Recorded Sex Assigned at Not on file Gender Identity Not on file Sexual Orientation Not on file Job Start Date Occupation Industry Not on file Not on file Not on file documented as of this encounter Progress Notes * Edna Gonzalez, [facility] - 05/10/2023 2:28 PM EDT Images from the original note were not included. Medication Therapy [facility] - Diabetes Management Progress Note Corey Mabry, identified by name and date of , is a 53 year old male being seen for diabetesmanagement/education. Patient presents for return diabetic visit. DIABETES: Current diabetic medications: Metformin ER 500mg - 4 tablets once daily with breakfast NOVOLOG vial via pump eGFR > 90 as of 11/14/22 Type of pump: Omnipod 5 Serial Number: [id number] Type of Insulin: NovoLog Basal Rate: 12AM-6PM - 0.8 units/hour 6 AM - 9PM - 0.8 units/hour 9 PM - 12AM - 1.0 units/hour Bolus Calculator: on and using Insulin to CARB ratio: Midnight: 8 11:30AM: 8 1:30PM: 8 Sensitivity Factor: 45 Target Glucose: 120mg/dL Correct Above: 140mg/dL Lifestyle: Diet: unchanged Glucose Review/SMBG: Readings obtained from patient device Hypoglycemia: Does your blood sugar go below 70 mg/dL? No Hyperglycemia symptoms present: none Recent Labs Units 03/23/23 0952 11/14/22 0810 01/28/22 1408 [facility] 7.7* 8.4* 8.1* Recent Labs Units 11/14/22 0810 01/28/22 1408 ESTIMATED GLOMERULAR FILTRATION RATE - [facility]INGER mL/min >90 >90 CREATININE - [place]INGER mg/dL 0.6 0.6 HYPERTENSION: Patient on ACEi/ARB: yes BP Readings from Last 3 Encounters: 04/21/23 130/88 04/05/22 124/68 08/23/21 122/70 Blood pressure at goal: yes HYPERLIPIDEMIA: Patient is taking moderate or high intensity statin: yes HEALTH MAINTENANCE REVIEW: Health Maintenance Due Topic Date Due HIV Screening Never done Colorectal Cancer Screening Never done Depression Screening 12/11/2020 Zoster Vaccines (1 of 2) Never done Diabetic Foot Exam 08/23/2022 COVID-19 Vaccine ( season) 2022 B-12 01/28/2023 ASSESSMENT & PLAN: ICD-10-CM 1. 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 A1c obtained last month showed great improvement. [place] data reviewed today. Patient not appropriately covering breakfast. Notes to sometimes eating cereal (highsugar/CHO) for breakfast. Counseled on this. Medications - Reviewed current regimen. Patient notes he tries to be diligent about entering CHO into pump with every meal. Will plan to strengthen CR at that time to allow for better coverage. Diet, Exercise, Lifestyle - No significant lifestyle changes since last visit. Patient is agreeable to SMBG daily with CGM (DexSpeedDate G6) Patient aware to contact clinic if any hypoglycemia before next visit. MEDICATION CHANGES: Yes, see below Diabetic Medications: Metformin ER 500mg - 4 tablets once daily with breakfast NOVOLOG vial via pump eGFR > 90 as of 11/14/22 Type of pump: Omnipod 5 Serial Number: [id number] Type of Insulin: NovoLog Basal Rate: 12AM-6PM - 0.8 units/hour 6 AM - 9PM - 0.8 units/hour 9 PM - 12AM - 1.0 units/hour Bolus Calculator: on and using Insulin to CARB ratio: 12AM - 12PM: 6g (strengthened) 12PM - 12AM: 8g Sensitivity Factor: 45 Target Glucose: 120mg/dL Correct Above: 140mg/dL HEALTH MAINTENANCE INTERVENTIONS: Deferred d/t time constraints FOLLOW UP: Return to clinic in 7 weeks (4 weeks w/ endo) 06/28/2023 Edna Gonzalez [facility] Clinical Pharmacist - Pantry [facility] Medication Therapy Management Clinic 05/10/2023, 2:28 PM documented in this encounter Plan of Treatment Upcoming Encounters Date Type Department Care Team (Late st Contact Info) Description 06/08/2023 8:30 AM EDT Telemedicine Endocrinology, [place] [address] [place] [address] Brittaney Reaves PA-C [address] [place] [address] 06/28/2023 3:00 PM EDT Office Visit Pharmacy, [address] [place] [phone] [place] [address] 07/05/2023 2:00 PM EDT Office Visit Family Medicine [address] [place] [phone] Blossom Gibson MD [address] [place] [address] [place] [phone] Health Maintenance Due Date Last Done Comments HIV Screening 1987 Cologuard 2017 Colonoscopy 2017 Colorectal Cancer Screening 2017 Fecal Occult Blood Test 2017 Sigmoidoscopy 2017 Depression Screening 12/11/2020 12/12/2019 Zoster Vaccines (1 of 2) 2022 Diabetic Foot Exam 08/23/2022 08/23/2021, 0 06/12/2018, 06/14/2017, Additional history exists COVID-19 Vaccine ( season) 2022 02/23/2021, 06/06/2020, 05/16/2020 B-12 01/28/2023 01/28/2022, 07/0 08/2020, 08/28/2019, Additional history exists Diabetic Eye Exam 09/01/2023 08/31/2022 (Do ne elsewhere), 03/28/2022, 10/08/2020, Additional history exists HbA1c 09/21/2023 03/23/2023, 10/28, 01/28/2022, Additional history exists GFR 11/15/2023 11/14/2022, 12/0 03/2021, 02/11/2021, Additional history exists Albumin/Creatinine Ratio 03/27/2024 024, 11/14/2022, 01/28/2022, Additional history exists DTaP,Tdap,and Td Vaccines (2 - Td or Tdap) 09/15/2027 09/14/2017 Lipid Panel 11/15/2027 11/14/2022, 12/0 03/2021, 07/28/2020, Additional history exists Hepatitis B Completed 07/16/2015, 01/27, 01/08/2015 Pneumococcal Vaccine: Pediatrics (0 to 5 Years) and At-Risk Patients (6 to 64 Years) Completed 08/23/2021, 01/06/2014 Influenza Vaccine (FLU shot) Completed , 12/08/2021, 12/17/2020, Additional history exists GARDASIL-HPV IMMUNIZATION SERIES Aged Out No longer eligible based on patient's age to complete this topic MENINGOCOCCAL (MENACTRA/MENVEO) Aged Out No longer eligible based on patient's age to complete this topic documented as of this encounter Medical Devices Not on filedocumented as of this encounter Visit Diagnoses Diagnosis Type 1 diabetes mellitus with hemoglobin A1c goal of less than 7.0% (HCC)- Primary documented in this encounter Care Teams Inverter And Clipper Relationship Specialty Start Date End Date Blossom Gibson MD [address] [place] [address] [place] [phone] PCP - General Family Medicine 04/21/23 documented as of this encounter
--- OUTSIDE RECORDS SUMMARY | 2023-05-24 10:58 | External Medical Summary | Summary of Care ---
Author Name Unknown Organization [facility] Address [address] [facility] [address] Phone [phone] Care Team Providers Care Aircraft Body Repairer Name Role Phone Basim Slaughter MD Primary Care Provider Reason for Visit * Reason Comments Outpatient Testing Encounter Details Date Type Department Care Team (Late st Contact Info) Description 03/23/2023 9:50 AM EST Laboratory Laboratory [address] [place] [phone] [place] [address] DM type 1, not at goal (HCC); Nocturnal polyuria; Hematuria, unspecified type Allergies Active Allergy Reactions Criticality Noted Date Comments Sulfa Antibiotics Rash Medium 10/07/2013 documented as of this encounter (statuses as of 03/23/2023) Medications Medication Sig Dispensed Refills Start Date [...] unresponsiveness due to suspected hypoglycemia 0.4 mL 06/08/2022 Active Insulin Glargine Solostar 100 UNIT/ML Subcutaneous Solution Pen-injector (Lantus SoloStar) FOR PUMP BACK UP: Injected under the skin, one time(s) per day:18 units. TDD: 20. ICD10: E11.9 15 mL 06/08/2022 Active BD Pen Needle Noemi U/F 32G X 4 MM (Insulin Pen Needle) Use four times daily w/ insulin 100 Each 06/08/2022 Active Insulin Syringe-Needle U-100 31G X 5/16" 0.3 ML (B-D INSULIN SYRINGE ULTRAFINE) For pump back up: injecting insulin 4 times daily. E10.9 100 Each 5 06/08/2022 Active Tamsulosin HCl 0.4 MG Oral Capsule (Flomax)Indicatio ns:Urinary hesitancy Take 1 Capsule by mouth in the morning. 90 Capsule 1 10/19/2022 Active metFORMIN HCl ER 500 MG Oral Tablet Extended Release 24 Hour (Glucophage XR)Indications:Ty pe 2 diabetes mellitus with hemoglobin A1c goal of less than 8.5% (HCC) TAKE 4 TABLETS BY MOUTH EVERY DAY WITH BREAKFAST 360 Tablet 1 10/19/2022 Active Sertraline HCl 50 MG Oral Tablet (Zoloft)Indicatio ns:Adjustment disorder with depressed mood Take 1 Tablet by mouth in the morning. In the morning.. 90 Tablet 1 10/19/2022 Active Atorvastatin Calcium 20 MG Oral Tablet (Lipitor)Indicati ons:Type 2 diabetes mellitus with hemoglobin A1c goal of less than 8.5% (HCC),Hyperlipide alfonso with target LDL less than 100 TAKE ONE TABLET BY MOUTH AT BEDTIME 90 Tablet 1 10/19/2022 Active Omnipod 5 G6 Pod (Gen 5) Use a new pod every 72 hours to administer insulin (30 pods for 90 days) 6 Each 3 12/12/2022 Active Pantoprazole Sodium 20 MG Oral Tablet Delayed Release (Protonix)Indicat ions:Gastroesopha geal reflux disease with esophagitis without hemorrhage TAKE ONE TABLET IN THE MORNING 90 Tablet 3 01/05/2023 Active Lisinopril 20 MG Oral Tablet (Prinivil)Indicat ions:Essential hypertension with goal blood pressure less than 140/90 TAKE ONE TABLET EVERY DAY 90 Tablet 3 01/05/2023 Active Insulin Aspart 100 UNIT/ML Injection Solution (NovoLOG)Indicati ons:Type 2 diabetes mellitus with hemoglobin A1c goal of less than 8.5% (HCC) Use up to 90 units daily in insulin pump 90 mL 3 03/13/2023 Active documented as of this encounter (statuses as of 03/23/2023) Active Problems Problem Noted Date Diagnosed Date Type 1 diabetes mellitus wit h hemoglobin [...] as of this encounter (statuses as of 03/23/2023) Resolved Problems Problem Noted Date Diagnosed Date [...] as of this encounter (statuses as of 03/23/2023) Immunizations Name Administration Dates Next Due COVID-19 mRNA, LNP-s, No Pre serve, 2-Dose Series ([employer]) 02/23/2021,06/06/2020,05/16/2020 Hepatitis B, 20+ yrs 07/16/2015,02/05/2015,01/08 Pneumococcal Conjugate Vacci ne, 20-valent ([id number]) 08/23/2021 Pneumococcal Polysaccharide PPV23 (Pneumovax) 01/06/2014 Seasonal Influenza, PF, 6 M & above, IM , (FluLaval or Fluzone) 12/08/2021,12/17/2020,12/12/2019,12/26,12/27/2017,01/04/2017 Seasonal Influenza, Quadriva lent, No Preserve, IM [...] on file documented as of this encounter Plan of Treatment Upcoming Encounters Date Type Department Care Team (Late st Contact Info) Description 04/21/2023 9:20 AM EST Office Visit Family Medicine [address] [place] [phone] Blossom Gibson MD [address] [place] [address] [place] [phone] 05/04/2023 3:00 PM EST Office Visit Pharmacy, [address] [place] [phone] [place] [address] 06/08/2023 8:30 AM EDT Telemedicine Endocrinology, [place] [address], [place] [phone] Brittaney Reaves PA-C [address], [place] [phone] Pending Results Name Type Priority Associated Diagnoses Date /Time HEPATIC FUNCTION PANEL Lab Routine DM type 1, not at goal ([facility]) 03/23/2023 9:52 AM EST HEMOGLOBIN A1C Lab Routine DM type 1, not at goal ([facility]) 03/23/2023 9:52 AM EST PSA Lab Routine Nocturnal polyuria 03/23/2023 9:52 AM EST CBC WITH WBC DIFFERENTIAL Lab Routine Hematuria, unspecified type 03/23/2023 9:52 AM EST CBC Lab Routine Hematuria, unspecified type 03/23/2023 9:52 AM EST DIFFERENTIAL, AUTOMATED Lab Routine Hematuria, unspecified type 03/23/2023 9:52 AM EST Health Maintenance Due Date Last Done Comments HIV Screening 1987 Cologuard 2017 Colonoscopy 2017 Colorectal Cancer Screening 2017 Fecal Occult Blood Test 2017 Sigmoidoscopy 2017 Depression Screening 12/11/2020 12/12/2019 Zoster Vaccines (1 of 2) 2022 Diabetic Foot Exam 08/23/2022 08/23/2021, 0 06/12/2018, 06/14/2017, Additional history exists COVID-19 Vaccine ( season) 2022 02/23/2021, 06/06/2020, 05/16/2020 Influenza Vaccine (FLU shot) (#1) 2022 12/08/2021, 12/17/2020, 12/12/2019, Additional history exists B-12 01/28/2023 01/28/2022, 07/0 08/2020, 08/28/2019, Additional history exists HbA1c 05/15/2023 11/14/2022, 12/0 03/2021, 02/11/2021, Additional history exists Diabetic Eye Exam 09/01/2023 08/31/2022 (Do ne elsewhere), 03/28/2022, 10/08/2020, Additional history exists Albumin/Creatinine Ratio 11/15/2023 023, 01/28/2022, 04/30/2021, Additional history exists GFR 11/15/2023 11/14/2022, 12/0 03/2021, 02/11/2021, Additional history exists DTaP,Tdap,and Td Vaccines (2 - Td or Tdap) 09/15/2027 09/14/2017 Lipid Panel 11/15/2027 11/14/2022, 03/2021, 07/28/2020, Additional history exists Hepatitis B Completed 07/16/2015, 01/27, 01/08/2015 Pneumococcal Vaccine: Pediatrics (0 to 5 Years) and At-Risk Patients (6 to 64 Years) Completed 08/23/2021, 01/06/2014 GARDASIL-HPV IMMUNIZATION SERIES Aged Out No longer eligible based on patient's age to complete this topic MENINGOCOCCAL (MENACTRA/MENVEO) Aged Out No longer eligible based on patient's age to complete this topic documented as of this encounter Medical Devices Not on filedocumented as of this encounter Visit Diagnoses Diagnosis DM type 1, not at goal (HCC) Type I (juvenile type) diabetes mellitus without mention of complication, not stated as uncontrolled Nocturnal polyuria Nocturia Hematuria, unspecified type documented in this encounter Care Teams Aircraft Body Repairer Relationship Specialty Start Date End Date Basim Slaughter MD [address] [place] [address] [place] [phone] PCP - General Family Medicine 11/18/13 documented as of this encounter
--- OUTSIDE RECORDS SUMMARY | 2023-05-24 10:58 | External Medical Summary ---
Author Name Unknown Address Unknown Organization [id number]:LABORATORY [facility] - [address] [facility] [address] Laboratory Report Ordering Provider Test Date Status PERCY PALMER 03/27/2023 10:47:37 Final Observation Date Value Abnormality Reference (Units ) Status Color of Urine by Auto 03/27/2023 10:47:37 Light Yellow Colorless, Light Yellow, Yellow, Dark Yellow Final Clarity, Urine 03/27/2023 10:47:37 Clear Clear Final Glucose [Mass/volume] in Urine by Automated test strip 03/27/2023 10:47:37 Negative Negative (mg/dL) Final Bilirubin.total [Presence] in Urine by Automated test strip 03/27/2023 10:47:37 Negative Negative Final Ketones [Mass/volume] in Urine by Automated test strip 03/27/2023 10:47:37 Negative Negative (mg/dL) Final Specific gravity, Urine 03/27/2023 10:47:37 1.008 1.003-1.030 Final Hemoglobin [Presence] in Urine by Automated test strip 03/27/2023 10:47:37 Negative Negative Final pH, Urine 03/27/2023 10:47:37 6.5 5.0-7.5 (Units) Final Protein [Mass/volume] in Urine by Automated test strip 03/27/2023 10:47:37 Negative Negative (mg/dL) Final Urobilinogen [Mass/volume] in Urine by Automated test strip 03/27/2023 10:47:37 Normal Normal (mg/dL) Final Nitrite [Presence] in Urine by Automated test strip 03/27/2023 10:47:37 Negative Negative Final Leukocyte esterase [Presence] in Urine by Automated test strip 03/27/2023 10:47:37 Negative Negative Final Annotation Comment 03/27/2023 10:47:37 Final Screen negative - Microscopi c not performed. Performing Location [facility] [address] [facility] [address]
--- OUTSIDE RECORDS SUMMARY | 2023-05-24 10:58 | External Medical Summary ---
Author Name Unknown Address Unknown Organization [id number]:LABORATORY [facility] [place] - [address] [place] [address] Laboratory Report Ordering Provider Test Date Status RICHARD LANDEROS 03/23/2023 09:52:33 Final Observation Date Value Abnormality Reference (Units ) Status Albumin 03/23/2023 09:52:33 4.4 3.8-5.0 (g/dL) Final AST (Aspartate aminotransferase) 03/23/2023 09:52:33 13 10-50 (U/L) Final Alk Phos 03/23/2023 09:52:33 145 Above high normal 35-130 (U/L) Final ALT (Alanine aminotransferase) 03/23/2023 09:52:33 16 10-50 (U/L) Final Bilirubin, Total 03/23/2023 09:52:33 0.5 <=1.2 (mg/dL) Final Bilirubin, Direct 03/23/2023 09:52:33 <0.2 0.0-0.3 (mg/dL) Final Protein 03/23/2023 09:52:33 6.8 6.0-8.3 (g/dL) Final Performing Location LABORATORY [facility] - [address] [place] [address]
--- OUTSIDE RECORDS SUMMARY | 2023-05-24 10:58 | External Medical Summary | Summary of Care ---
Author Name Unknown Organization [facility] Address [address] [facility] [place] [address] Phone [phone] Care Team Providers Care Radiation Control Worker Name Role Phone Blossom Gibson MD Primary Care Provide r Reason for Visit * Reason Onset Date Comments Re-Check Medication Administration 04/21/2023 Flu an d/or Pneumo Inj Encounter Details Date Type Department Care Team (Late st Contact Info) Description 04/21/2023 9:20 AM EST Office Visit Family Medicine [address] [place] [phone] Blossom Gibson MD [address] [place] [address] [place] [address] HTN, goal below 140/90*; Need for prophylactic vaccination and inoculation against influenza; Chronic bilateral low back pain without sciatica; Type 1 diabetes mellitus with hemoglobin A1c goal of less than 7.0% ([facility]); 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[facility]); Other idiopathic scoliosis, unspecified spinal region Allergies Active Allergy Reactions Criticality Noted Date Comments Sulfa Antibiotics Rash Medium 10/07/2013 documented as of this encounter (statuses as of 04/21/2023) Medications Medication Sig Dispensed Refills Start Date End Date Status D 1999 1999 UNITS PO TABSIndications:V itamin D deficiency 1 TABLET DAILY 1999 Tab 5 4 Active Blood Glucose Monitoring Suppl (ONE TOUCH ULTRA 2) W/DEVICE KITIndications:DM type 2 goal A1C below 7.5 Use as directed to test blood sugar; dx 250.00 1 Each 0 5 Active ONETOUCH LANCETS MISC Check finger stick 6 times daily 200 Each 5 5 Active Ketostix In Vitro Strip (Acetone (Urine) Test) Test urine for ketones every 2 hours if you experience nausea, vomiting and abdominal pain. 50 Strip 5 3 Active Gvoke HypoPen 2-Pack 1 MG/0.2ML Subcutaneous Solution Auto-injector (Glucagon) Inject 1.0 mg under the skin of belly/thigh or upper arm as needed for unresponsiveness due to suspected hypoglycemia 0.4 mL 11 3 Active Insulin Glargine Solostar 100 UNIT/ML Subcutaneous Solution Pen-injector (Lantus SoloStar) FOR PUMP BACK UP: Injected under the skin, one time(s) per day:18 units. TDD: 20. ICD10: E11.9 15 mL 11 3 Active BD Pen Needle Noemi U/F 32G X 4 MM (Insulin Pen Needle) Use four times daily w/ insulin 100 Each 11 3 Active Insulin Syringe-Needle U-100 31G X 5/16" 0.3 ML (B-D INSULIN SYRINGE ULTRAFINE) For pump back up: injecting insulin 4 times daily. E10.9 100 Each 5 3 Active Omnipod 5 G6 Pod (Gen 5) Use a new pod every 72 hours to administer insulin (30 pods for 90 days) 6 Each 3 3 Active Pantoprazole Sodium 20 MG Oral Tablet Delayed Release (Protonix)Indicat ions:Gastroesopha geal reflux disease with esophagitis without hemorrhage TAKE ONE TABLET IN THE MORNING 90 Tablet 3 3 Active Insulin Aspart 100 UNIT/ML Injection Solution (NovoLOG)Indicati ons:Type 2 diabetes mellitus with hemoglobin A1c goal of less than 8.5% (HCC) Use up to 90 units daily in insulin pump 90 mL 3 4 Active Atorvastatin Calcium 20 MG Oral Tablet (Lipitor)Indicati ons:Type 2 diabetes mellitus with hemoglobin A1c goal of less than 8.5% (HCC),Hyperlipide alfonso with target LDL less than 100 TAKE ONE TABLET AT BEDTIME 90 Tablet 1 4 Active Sertraline HCl 50 MG Oral Tablet (Zoloft)Indicatio ns:Adjustment disorder with depressed mood TAKE ONE TABLET IN THE MORNING 90 Tablet 1 4 Active metFORMIN HCl ER 500 MG Oral Tablet Extended Release 24 Hour (Glucophage XR)Indications:Ty pe 2 diabetes mellitus with hemoglobin A1c goal of less than 8.5% (HCC) TAKE 4 TABLETS IN THE MORNING 360 Tablet 1 4 Active Tamsulosin HCl 0.4 MG Oral Capsule (Flomax)Indicatio ns:Urinary hesitancy TAKE ONE CAPSULE IN THE MORNING 90 Capsule 1 4 Active Losartan Potassium 50 MG Oral Tablet (Cozaar)Indicatio ns:HTN, goal below 140/90 Take 1 Tablet by mouth in the morning. 30 Tablet 5 4 Active Baclofen 10 MG Oral Tablet (Lioresal)Indicat ions:Chronic bilateral low back pain without sciatica Take 1 Tablet by mouth at bedtime as needed for Pain. 30 Tablet 0 4 Active Lisinopril 20 MG Oral Tablet (Prinivil)Indicat ions:Essential hypertension with goal blood pressure less than 140/90 TAKE ONE TABLET EVERY DAY 90 Tablet 3 3 04/21/19 24 Discontinu ed(Medicat ion/Dose Changed) documented as of this encounter (statuses as of 04/21/2023) Active Problems Problem Noted Date Diagnosed Date [...] as of this encounter (statuses as of 04/21/2023) Resolved Problems Problem Noted Date Diagnosed Date Resolved Date Type 2 diabetes mellitus wit h hemoglobin A1c goal of less than 7.5% 11/29/2013 12/29/2014 Overview: ICD-10 update of inactive term HYPERTENSION NOS 04/05/2001 01/06/2014 Reflux esophagitis 1 Type 2 diabetes mellitus wit h hemoglobin A1c goal of less than 7.0% 01/06/2014 Overview: ICD-10 update of inactive term documented as of this encounter (statuses as of 04/21/2023) Immunizations Name Administration Dates Next Due COVID-19 mRNA, LNP-s, No Pre serve, 2-Dose Series ([employer]) 02/23/2021,06/06/2020,05/16/2020 Hepatitis B, 20+ yrs 07/16/2015,02/05/2015,01/08 Pneumococcal Conjugate Vacci ne, 20-valent ([id number]) 08/23/2021 Pneumococcal Polysaccharide PPV23 (Pneumovax) 01/06/2014 Seasonal [...] on file documented as of this encounter Last Filed Vital Signs Vital Sign Reading Time Taken Comments Blood Pressure 130/88 04/21/2023 9:03 AM EST Pulse 101 04/21/2023 9:03 AM EST Temperature 36.7 C (98 F) 04/21/2023 9:03 AM EST Respiratory Rate - - Oxygen Saturation 95% 04/21/2023 9:03 AM EST Inhaled Oxygen Concentration - - Weight 67 kg (147 lb 12.8 oz) 04/21/2023 9:03 AM EST Height - - Body Mass Index 28.87 04/30/2021 2:13 PM EST documented in this encounter Progress Notes * Blossom Gibson MD - 04/21/2023 9:30 AM EST Subjective: HPI: Corey Mabry is a 53 year old male with hx of DMI on insulin pump, HLD, HTN, GERD, Cerebral Palsy, Depression seen for DMI: - on insulin pump - on metformin ER 2000mg Daily ---- denied any SE Depression: - on Zoloft 50mg daily - doing well BPH: - on flomax 0.4mg daily HTN: - currently on lisinopril 20mg daily - per pt he has dry cough - denied any hx of smoking Chronic lower back pain - worse at night - pt does have DDD - denied any recent fall Patient Active Problem List Diagnosis Code 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 Primary hypertension I10 Hyperlipidemia with target LDL less than 100 E78.5 Vitamin D deficiency E55.9 Adjustment disorder with depressed mood F43.21 Gastroesophageal reflux disease with esophagitis without hemorrhage K21.00 Type 1 diabetes mellitus with hemoglobin A1c goal of less than 7.0% ([facility]) E10.9 DM type 1, not at goal ([facility]) E10.9 Insulin pump status Z96.41 Idiopathic scoliosis M41.20 Current Outpatient Medications Medication Sig Dispense Refill D 2000 2000 UNITS PO TABS 1 TABLET DAILY 2000 Tab 5 Blood Glucose Monitoring Suppl (ONE TOUCH ULTRA 2) W/DEVICE KIT Use as directed to test blood sugar; dx 250.00 1 Each 0 Ketostix In Vitro Strip (Acetone (Urine) Test) Test urine for ketones every 2 hours if you experience nausea, vomiting and abdominal pain. 50 Strip 5 Gvoke HypoPen 2-Pack 1 MG/0.2ML Subcutaneous Solution Auto-injector (Glucagon) Inject 1.0 mg under the skin of belly/thigh or upper arm as needed for unresponsiveness due to suspected hypoglycemia 0.4 mL 11 Insulin Glargine Solostar 100 UNIT/ML Subcutaneous Solution Pen-injector (Lantus SoloStar) FOR PUMPBACK UP: Injected under the skin, one time(s) per day:18 units. TDD: 20. ICD10: E11.9 15 mL 11 BD Pen Needle Noemi U/F 32G X 4 MM (Insulin Pen Needle) Use four times daily w/ insulin 100 Each 11 Insulin Syringe-Needle U-100 31G X 5/16" 0.3 ML (B-D INSULIN SYRINGE ULTRAFINE) For pump back up: injecting insulin 4 times daily. E10.9 100 Each 5 Omnipod 5 G6 Pod (Gen 5) Use a new pod every 72 hours to administer insulin (30 pods for 90 days) 6Each 3 Pantoprazole Sodium 20 MG Oral Tablet Delayed Release (Protonix) TAKE ONE TABLET IN THE MORNING 90 Tablet 3 Insulin Aspart 100 UNIT/ML Injection Solution (NovoLOG) Use up to 90 units daily in insulin pump 90mL 3 Atorvastatin Calcium 20 MG Oral Tablet (Lipitor) TAKE ONE TABLET AT BEDTIME 90 Tablet 1 Sertraline HCl 50 MG Oral Tablet (Zoloft) TAKE ONE TABLET IN THE MORNING 90 Tablet 1 metFORMIN HCl ER 500 MG Oral Tablet Extended Release 24 Hour (Glucophage XR) TAKE 4 TABLETS IN THE MORNING 360 Tablet 1 Tamsulosin HCl 0.4 MG Oral Capsule (Flomax) TAKE ONE CAPSULE IN THE MORNING 90 Capsule 1 Losartan Potassium 50 MG Oral Tablet (Cozaar) Take 1 Tablet by mouth in the morning. 30 Tablet 5 Baclofen 10 MG Oral Tablet (Lioresal) Take 1 Tablet by mouth at bedtime as needed for Pain. 30 Tablet 0 ONETOUCH LANCETS MISC Check finger stick 6 times daily 200 Each 5 No current facility-administered medications for this visit. Past Medical History: Diagnosis Date Adjustment disorder with depressed mood COVID-19 10/08/2022 home test positive DM type 2 goal A1C below 7.5 2003 Encounter for hepatitis C screening test for low risk patient 08/23/2021 negative HTN, goal below 140/90 Hyperlipidemia LDL goal < 100 Other specified infantile cerebral palsy Reflux esophagitis Shingles 11/14/2014 left breast area 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HCC) Unspecified vitamin D deficiency No past surgical history on file. Review of patient's allergies indicates: Allergen Reactions Sulfa Antibiotics Rash Family History Problem Relation Age of Onset Cancer Grandmother (Paternal) d.Ca lung Social History Tobacco Use Smoking status: Never Smokeless tobacco: Never Substance Use Topics Alcohol use: Yes Comment: rare beer Vaping/E-Cigarette Use Vaping/E-Cigarette Substances Vaping/E-Cigarette Devices ROS: -Per HPI OBJECTIVE: BP 130/88 | Pulse 101 | Temp 36.7 C (98 F) | Wt 67 kg (147 lb 12.8 oz) | SpO2 95% | BMI 28.87 kg/m | BSA 1.68 m PHYSICAL EXAM: Vitals are reviewed General:. NAD, well developed HEENT:. Normal Conjunctiva, EOMI Cardiac:. Normal S1, S2, no murmur Lungs:. CTA, no wheezing or crackles MSK: mild TTP of the b/l lower paravertebral area, no swelling or erythema Psych:. AAOx3, normal affect ASSESSMENT/PLAN: Due to cough will switch to losartan - RTC in 2 months HTN, goal below 140/90 (Primary) - Losartan Potassium 50 MG Oral Tablet (Cozaar); Take 1 Tablet by mouth in the morning. Need for prophylactic vaccination and inoculation against influenza - INFLUENZA VACC, QUAD, PF, 6 MONTHS & UP, 0.5 ML, IM Chronic bilateral low back pain without sciatica - Baclofen 10 MG Oral Tablet (Lioresal); Take 1 Tablet by mouth at bedtime as needed for Pain. Type 1 diabetes mellitus with hemoglobin A1c goal of less than 7.0% (HCC) - A1C has been improving - might decrease the metformin dose depending on the A1C improvement 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HCC) - stable Other idiopathic scoliosis, unspecified spinal region - stable Follow Up: Return in about 2 months (around 06/20/2023). Blossom Gibson MD [facility] [place] [phone] * Deepthi Lake CMA - 04/21/2023 9:05 AM EST PRE - ADMINISTRATION DOCUMENTATION Are you experiencing any cold symptoms or fever? No Have you had Guillain-[place] Syndrome (an illness that causes paralysis) within the last 6 weeks? No Have you had the flu shot in the past? YES Have you ever had a reaction to the flu shot? No Deepthi Lake CMA, 04/21/2023 9:05 AM Immunization Administration Documentation Time Out Procedure Performed: Yes Patient Identified (Ask Name/Date of ): Yes Does the patient have a fever greater than 101 degrees today? No Patient allergic to latex? No VFC Stock: No Immunization(s) verified: Yes, Immunization Name: Flu, VIS Sheet(s) given: Yes Verified Side and Site: Yes Verified Shot(s) with Parent(s)/Patient: Yes documented in this encounter Nursing Notes * Deepthi Lake CMA - 04/21/2023 8:59 AM EST He is here for a regular 6 mo recheck. He was a patient of Dr. Slaughter. He would like his back looked at. He has been having pain. He fell and has been having pain since. He did get it looked at and the x-rays were fine. He has a cough and doesn't smoke. He questions if maybe its his lisinopril. documented in this encounter Plan of Treatment Upcoming Encounters Date Type Department Care Team (Late st Contact Info) Description 05/04/2023 3:00 PM EST Office Visit Pharmacy, [address] [place] [phone] [place] [address] 06/08/2023 8:30 AM EDT Telemedicine Endocrinology, [place] [address] [place] [address] Brittaney Reaves PA-C [address] [place] [address] 07/05/2023 2:00 PM EDT Office Visit Family Medicine [address] [place] [phone] Blossom Gibson MD [address] [place] [address] [place] [address] Health Maintenance Due Date Last Done Comments [...] 01/28/2022, Additional history exists GFR 11/15/2023 11/14/2022, 0 03/2021, 02/11/2021, Additional history exists Albumin/Creatinine Ratio [...] as of this encounter Visit Diagnoses Diagnosis HTN, goal below 140/90- Primary Unspecified essential hypertension Need for prophylactic vaccination and inoculation against influenza Chronic bilateral low back pain without sciatica Type 1 diabetes mellitus with hemoglobin A1c goal of less than 7.0% (HCC) 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
--- OUTSIDE RECORDS SUMMARY | 2023-05-24 10:58 | External Medical Summary ---
Author Name Unknown Address Unknown Organization K01:[facility] [address] [place] [address] Laboratory Report Ordering Provider Test Date Status PERCY PALMER 03/23/2023 09:52:33 Final Observation Date Value Abnormality Reference (Units ) Status PSA 03/23/2023 09:52:33 0.97 <3.10 (ng/ mL) Final Performing Location [facility] - [address] [place] [address]
--- OUTSIDE RECORDS SUMMARY | 2023-05-24 10:58 | External Medical Summary ---
Author Name Unknown Address Unknown Organization [id number]:[facility] [address] [place] [address] Laboratory Report Ordering Provider Test Date Status TIGRE,RICHARD 03/23/2023 09:52:33 Final Observation Date Value Abnormality Reference (Units ) Status HbA1C 03/23/2023 09:52:33 7.7 Above high normal 4. 0-5.6 (%) Final The use of HbA1c to monitor glycemic status is based on normal hemoglobin and HbA composition. This test should not be used in patients with abnormal hemoglobin that affects the half life of the red blood cell or the in vivo glycation rates. Glucose, estimated average 03/23/2023 09:52:33 174 Above high normal <126 (mg/dL) Alex hernandez Performing Location [facility] [address] [facility] [address]
--- OUTSIDE RECORDS SUMMARY | 2023-05-24 10:58 | External Medical Summary | Summary of Care ---
Author Name Unknown Organization [facility] Address [address] [facility] [place] [address] Phone [phone] Care Team Providers Care Service Porter Name Role Phone Unavailable Primary Care Provider Unavailabl e Reason for Visit * Reason Onset Date Comments Test Results 2023 Encounter Details Date Type Department Care Team (Late st Contact Info) Description [facility] [address] [place] [address] [place] [address] [place] [address] Test Results Allergies Active Allergy Reactions Criticality Noted Date Comments Sulfa Antibiotics Rash Medium 10/07/2013 documented as of this encounter (statuses as of 2023) Medications Medication Sig Dispensed Refills Start Date [...] insulin 4 times daily. E10.9 100 Each 06/08/2022 Active Tamsulosin HCl 0.4 MG Oral Capsule (Flomax)Indicatio ns:Urinary hesitancy Take 1 Capsule by mouth in the morning. 90 Capsule 10/19/2022 Active metFORMIN HCl ER 500 MG [...] hemoglobin A1c goal of less than 8.5% ([facility]) Use up to 90 units daily in insulin pump 90 mL 3 03/13/2023 Active documented as of this encounter (statuses as of 2023) Active Problems Problem Noted Date Diagnosed Date [...] as of this encounter (statuses as of 2023) Resolved Problems Problem Noted Date Diagnosed Date [...] as of this encounter (statuses as of 2023) Immunizations Name Administration Dates Next Due COVID-19 mRNA, LNP-s, No Pre serve, 2-Dose Series ([employer]) 02/23/2021,06/06/2020,05/16/2020 Hepatitis B, 20+ yrs 07/16/2015,02/05/2015,01/08 Pneumococcal Conjugate Vacci ne, 20-valent ([id number]) 08/23/2021 Pneumococcal Polysaccharide PPV23 (Pneumovax) 01/06/2014 Seasonal [...] on file documented as of this encounter Miscellaneous Notes * Telephone Encounter - Edna Gonzalez RPh - 2023 1:31 PM EST Patient Phone Numbers Called and spoke to patient. Made aware of great A1c improvement. Will continue current regimen at this time and follow up as previously scheduled. Hemoglobin AIC Results: Lab Results Component Value Date/Time HEMOGLOBIN A1C - [facility] 7.7 (H) 03/23/2023 09:52 AM Edna Gonzalez RPh, PharmD Clinical Pharmacist - [facility] 2023, 1:37 PM [phone] * Telephone Encounter - Chito Neal PHARM Tech - 2023 9:35 AM EST Caller's name: Corey Debra call back number(OFFICE NUMBER FOR ): [phone] Reason for call: Pt requesting to speak to [facility] for his lab results. Thank you, Chito Neal [facility] Stars Coordinator [employer] Telepharmacy 2023,9:35 AM documented in this encounter Plan of Treatment Upcoming Encounters Date Type Department Care Team (Late st Contact Info) Description 04/21/2023 9:20 AM EST Office Visit Family Medicine [address] [place] [phone] Blossom Gibson MD [address] [place] [address] [place] [phone] 05/04/2023 3:00 PM EST Office Visit Pharmacy, [address] [place] [phone] [place] [address] 06/08/2023 8:30 AM EDT Telemedicine Endocrinology, [place] [address] [place] [address] Brittaney Reaves PA-C [address] [place], [place] [phone] Health Maintenance Due Date Last Done Comments [...] 12/12/2019, Additional history exists B-12 01/28/2023 01/28/2022, 070 08/2020, 08/28/2019, Additional history exists Diabetic Eye Exam 09/01/2023 08/31/2022 (Do ne elsewhere), 03/28/2022, 10/08/2020, Additional history exists HbA1c 09/21/2023 03/23/2023, 10/28, 01/28/2022, Additional history exists GFR 11/15/2023 11/14/2022, 120 03/2021, 02/11/2021, Additional history exists Albumin/Creatinine Ratio 03/27/2024 024, 11/14/2022, 01/28/2022, Additional history exists DTaP,Tdap,and Td Vaccines (2 - Td or Tdap) 09/15/2027 09/14/2017 Lipid Panel 11/15/2027 11/14/2022, 120 03/2021, 07/28/2020, Additional history exists Hepatitis B [...]
--- OUTSIDE RECORDS SUMMARY | 2023-05-24 10:58 | External Medical Summary ---
Author Name Unknown Address Unknown Organization K01:[facility] [place] [address] [place] [id number] Laboratory Report Ordering Provider Test Date Status PERCY PALMER 03/27/2023 10:47:37 Final Observation Date Value Abnormality Reference (Units) Status Bacteria identified in Specimen by Culture 03/27/2023 10:47:37 No significant growth Final Test: Culture, Urine, Quanti tative
Specimen Source: Urine, Clean Catch
Specimen Type: Urine
Specimen Date: 03/27/2023 10:47 AM
Result Date: 2023 7:42 AM
Result Status: Final result
Resulting Lab: [facility]
[address]
[place] [address]

CULTURE

No significant growth

null Performing Location [facility] - [address] [facility] [address]
--- OUTSIDE RECORDS SUMMARY | 2023-05-24 10:58 | External Medical Summary | Summary of Care ---
Author Name Unknown Organization [facility] Address [address] [facility] [address] Phone [phone] Care Team Providers Care General Production Manager Name Role Phone Basim Slaughter MD Primary Care Provider Reason for Visit * Reason Comments Outpatient Testing Encounter Details Date Type Department Care Team (Late st Contact Info) Description 03/23/2023 9:50 AM EST Laboratory Laboratory [address] [place] [phone] [place] [address] DM type 1, not at goal (HCC); [...] mRNA, LNP-s, No Pre serve, 2-Dose Series ([employer]) 02/23/2021,06/06/2020,05/16/2020 Hepatitis B, 20+ yrs 07/16/2015,02/05/2015,01/08 Pneumococcal Conjugate Vacci ne, 20-valent ([id number]) 08/23/2021 Pneumococcal Polysaccharide PPV23 (Pneumovax) 01/06/2014 Seasonal [...] 9:20 AM EST Office Visit Family Medicine [address] [place] [phone] Blossom Gibson MD [address] [place] [address] [place] [address] 05/04/2023 3:00 PM EST Office Visit Pharmacy, [address] [place] [address] [place] [address] 06/08/2023 8:30 AM EDT Telemedicine Endocrinology, [place] [address] [place], [place] [phone] Brittaney Reaves PA-C [address] [place], [place] [phone] Pending Results Name Type Priority Associated Diagnoses Date /Time HEPATIC FUNCTION PANEL Lab Routine DM type 1, not at goal ([facility]) 03/23/2023 9:52 AM EST HEMOGLOBIN A1C Lab Routine DM type 1, not at goal ([facility]) 03/23/2023 9:52 AM EST PSA Lab Routine [...] type documented in this encounter Care Teams General Production Manager Relationship Specialty Start Date End Date Basim Slaughter MD [address] [place] [address] [place] [phone] PCP - General Family Medicine 11/18/13 documented as of this encounter
--- OUTSIDE RECORDS SUMMARY | 2023-05-24 10:58 | External Medical Summary | Summary of Care ---
Author Name Unknown Organization [facility] Address [address] [facility] [place] [address] Phone [phone] Care Team Providers Care Plant Care Worker Name Role Phone Unavailable Primary Care Provider Unavailabl e Reason for Visit * Reason Onset Date Comments Test Results 03/27/2023 Encounter Details Date Type Department Care Team (Late st Contact Info) Description 03/27/2023 Telephone Family Medicine [address] [place] [phone] Basim Slaughter MD [address] [place] [address] [place] [id number] Test Results Allergies Active Allergy Reactions Criticality Noted Date Comments Sulfa Antibiotics Rash Medium 10/07/2013 documented as of this encounter (statuses as of 03/28/2023) Medications Medication Sig Dispensed Refills Start Date [...] hemoglobin A1c goal of less than 8.5% ([facility]) Use up to 90 units daily in insulin pump 90 mL 3 03/13/2023 Active documented as of this encounter (statuses as of 03/28/2023) Active Problems Problem Noted Date Diagnosed Date [...] as of this encounter (statuses as of 03/28/2023) Resolved Problems Problem Noted Date Diagnosed Date [...] as of this encounter (statuses as of 03/28/2023) Immunizations Name Administration Dates Next Due COVID-19 mRNA, LNP-s, No Pre serve, 2-Dose Series ([employer]) 02/23/2021,06/06/2020,05/16/2020 Hepatitis B, 20+ yrs 07/16/2015,02/05/2015,01/08 Pneumococcal Conjugate Vacci ne, 20-valent ([id number]) 08/23/2021 Pneumococcal Polysaccharide PPV23 (Pneumovax) 01/06/2014 Seasonal [...] encounter Miscellaneous Notes * Telephone Encounter - Celena Ramirez RN - 03/27/2023 3:44 PM EST Labs Ordered by Hollie Carolina * Telephone Encounter - Amie Espitia OSA - 03/27/2023 2:50 PM EST Who is Requesting Test Results: Patient Primary Care Provider : Basim Slaughter MD Tests Results Requested : Date of Test : 03.23.23 Location of Test: [facility] Ordering Provider: Dr. Hua Callback Number: [phone] Patient has been made aware that the turnaround time for test results are typically as follows: Laboratory results = within 2-3 days ([facility]), 3-5 days (Non-[facility], ie. [facility]) Urine Cultures = within 2-3 days depending on growth within the culture Pathology results (biopsy results/PAP) = 1-2 weeks Radiology results = about 1 week Cologuard results = within 2 weeks from the shipment date COVID testing = about 24 hours documented in this encounter Plan of Treatment Upcoming Encounters Date Type Department Care Team (Late st Contact Info) Description 04/21/2023 9:20 AM EST Office Visit Family Medicine [address] [place] [phone] Blossom Gibson MD [address] [place] [address] [place] [address] 05/04/2023 3:00 PM EST Office Visit Pharmacy, [address] [place] [address] [place] [address] 06/08/2023 8:30 AM EDT Telemedicine Endocrinology, [place] [address] [place] [address] Brittaney Reaves PA-C [address] [place] [address] Health Maintenance Due Date Last Done Comments [...] 01/28/2022, Additional history exists GFR 11/15/2023 11/14/2022, 03/2021, 02/11/2021, Additional history exists Albumin/Creatinine Ratio [...]
--- OUTSIDE RECORDS SUMMARY | 2023-05-24 10:58 | External Medical Summary | Summary of Care ---
Author Name Unknown Organization [facility] [address] [facility] [address] Phone [phone] Care Team Providers Care Barber Shop Manager Name Role Phone Basim Slaughter MD Primary Care Provider Reason for Visit * Reason Comments Outpatient Testing Encounter Details Date Type Department Care Team (Late st Contact Info) Description 03/27/2023 10:50 AM EST Laboratory Laboratory [address] [place] [phone] , Specimen Drop Off [address] [place] [address] Arrived Allergies Active Allergy Reactions Criticality Noted Date Comments Sulfa Antibiotics Rash Medium 10/07/2013 documented as of this encounter (statuses as of 03/27/2023) Medications Medication Sig Dispensed Refills Start Date [...] as of this encounter (statuses as of 03/27/2023) Active Problems Problem Noted Date Diagnosed Date [...] as of this encounter (statuses as of 03/27/2023) Resolved Problems Problem Noted Date Diagnosed Date [...] as of this encounter (statuses as of 03/27/2023) Immunizations Name Administration Dates Next Due COVID-19 mRNA, LNP-s, No Pre serve, 2-Dose Series ([employer]) 02/23/2021,06/06/2020,05/16/2020 Hepatitis B, 20+ yrs 07/16/2015,02/05/2015,01/08 Pneumococcal Conjugate Vacci ne, 20-valent ([id number]) 08/23/2021 Pneumococcal Polysaccharide PPV23 (Pneumovax) 01/06/2014 Seasonal [...] 9:20 AM EST Office Visit Family Medicine [address] [place] [phone] Blossom Gibson MD [address] [place] [address] [place] [address] 05/04/2023 3:00 PM EST Office Visit Pharmacy, [address] [place] [address] [place] [address] 06/08/2023 8:30 AM EDT Telemedicine Endocrinology, [place] [address] [place], [place] [phone] Brittaney Reaves PA-C [address] [place], [place] [phone] Health Maintenance Due Date Last Done Comments [...] 09/21/2023 03/23/2023, 10/28, 01/28/2022, Additional history exists Albumin/Creatinine Ratio 11/15/2023 023, 01/28/2022, 04/30/2021, Additional history exists GFR 11/15/2023 11/14/2022, 120 03/2021, 02/11/2021, Additional history exists DTaP,Tdap,and Td [...] Not on filedocumented as of this encounter Care Teams Barber Shop Manager Relationship Specialty Start Date End Date Basim Slaughter MD [address] [place] [address] [place] [phone] PCP - General Family Medicine 11/18/13 documented as of this encounter
--- OUTSIDE RECORDS SUMMARY | 2023-05-24 10:58 | External Medical Summary | Summary of Care ---
Author Name Unknown Organization [facility] Address [address] [facility] [place] [address] Phone [phone] Care Team Providers Care Systems Mechanic Name Role Phone Unavailable Primary Care Provider Unavailabl e Reason for Visit * Reason Comments eRx-Medication Refill Encounter Details Date Type Department Care Team (Late st Contact Info) Description 03/28/2023 Refill Family Medicine [address] [place] [phone] Blossom Gibson MD [address] [place] [address] [place] [address] Type 2 diabetes mellitus with hemoglobin A1c goal of less than 8.5% ([facility]); Hyperlipidemia with target LDL less than 100; Adjustment disorder with depressed mood; Urinary hesitancy Allergies Active Allergy Reactions Criticality Noted Date Comments Sulfa Antibiotics Rash Medium 10/07/2013 documented as of this encounter (statuses as of 03/30/2023) Medications Medication Sig Dispensed Refills Start Date End Date Status D 1999 1999 UNITS PO TABSIndications: Vitamin D deficiency 1 TABLET DAILY 1999 Tab 5 11/19/19 14 Active Blood Glucose Monitoring Suppl (ONE TOUCH ULTRA 2) W/DEVICE KITIndications:D M type 2 goal A1C below 7.5 Use as directed to test blood sugar; dx 250.00 1 Each 0 09/17/19 15 Active ONETOUCH LANCETS MISC Check finger stick 6 times daily 200 Each 5 12/30/19 15 Active Ketostix In Vitro Strip (Acetone (Urine) Test) Test urine for ketones every 2 hours if you experience nausea, vomiting and abdominal pain. 50 Strip 5 06/09/19 Active Gvoke HypoPen 2-Pack 1 MG/0.2ML Subcutaneous Solution Auto-injector (Glucagon) Inject 1.0 mg under the skin of belly/thigh or upper arm as needed for unresponsiveness due to suspected hypoglycemia 0.4 mL 06/09/19 Active Insulin Glargine Solostar 100 UNIT/ML Subcutaneous Solution Pen-injector (Lantus SoloStar) FOR PUMP BACK UP: Injected under the skin, one time(s) per day:18 units. TDD: 20. ICD10: E11.9 15 mL 06/09/19 Active BD Pen Needle Noemi U/F 32G X 4 MM (Insulin Pen Needle) Use four times daily w/ insulin 100 Each 06/09/19 Active Insulin Syringe-Needle U-100 31G X 5/16" 0.3 ML (B-D INSULIN SYRINGE ULTRAFINE) For pump back up: injecting insulin 4 times daily. E10.9 100 Each 06/09/19 Active Omnipod 5 G6 Pod (Gen 5) Use a new pod every 72 hours to administer insulin (30 pods for 90 days) 6 Each 3 12/13/19 23 Active Pantoprazole Sodium 20 MG Oral Tablet Delayed Release (Protonix)Indica tions:Gastroesop hageal reflux disease with esophagitis without hemorrhage TAKE ONE TABLET IN THE MORNING 90 Tablet 3 01/06/20 23 Active Lisinopril 20 MG Oral Tablet (Prinivil)Indica tions:Essential hypertension with goal blood pressure less than 140/90 TAKE ONE TABLET EVERY DAY 90 Tablet 3 01/06/20 23 Active Insulin Aspart 100 UNIT/ML Injection Solution (NovoLOG)Indicat ions:Type 2 diabetes mellitus with hemoglobin A1c goal of less than 8.5% (HCC) Use up to 90 units daily in insulin pump 90 mL 3 03/13/19 24 Active Atorvastatin Calcium 20 MG Oral Tablet (Lipitor)Indicat ions:Type 2 diabetes mellitus with hemoglobin A1c goal of less than 8.5% (HCC),Hyperlipid emia with target LDL less than 100 TAKE ONE TABLET AT BEDTIME 90 Tablet 1 03/30/19 24 Active Sertraline HCl 50 MG Oral Tablet (Zoloft)Indicati ons:Adjustment disorder with depressed mood TAKE ONE TABLET IN THE MORNING 90 Tablet 1 03/30/19 24 Active metFORMIN HCl ER 500 MG Oral Tablet Extended Release 24 Hour (Glucophage XR)Indications:T ype 2 diabetes mellitus with hemoglobin A1c goal of less than 8.5% (HCC) TAKE 4 TABLETS IN THE MORNING 360 Tablet 1 03/30/19 24 Active Tamsulosin HCl 0.4 MG Oral Capsule (Flomax)Indicati ons:Urinary hesitancy TAKE ONE CAPSULE IN THE MORNING 90 Capsule 1 03/30/19 24 Active Tamsulosin HCl 0.4 MG Oral Capsule (Flomax)Indicati ons:Urinary hesitancy Take 1 Capsule by mouth in the morning. 90 Capsule 1 10/20/19 23 024 Discontinued metFORMIN HCl ER 500 MG Oral Tablet Extended Release 24 Hour (Glucophage XR)Indications:T ype 2 diabetes mellitus with hemoglobin A1c goal of less than 8.5% (HCC) TAKE 4 TABLETS BY MOUTH EVERY DAY WITH BREAKFAST 360 Tablet 1 10/20/19 23 024 Discontinued Sertraline HCl 50 MG Oral Tablet (Zoloft)Indicati ons:Adjustment disorder with depressed mood Take 1 Tablet by mouth in the morning. In the morning.. 90 Tablet 1 10/20/19 23 024 Discontinued Atorvastatin Calcium 20 MG Oral Tablet (Lipitor)Indicat ions:Type 2 diabetes mellitus with hemoglobin A1c goal of less than 8.5% (HCC),Hyperlipid emia with target LDL less than 100 TAKE ONE TABLET BY MOUTH AT BEDTIME 90 Tablet 1 10/20/19 23 024 Discontinued documented as of this encounter (statuses as of 03/30/2023) Active Problems Problem Noted Date Diagnosed Date [...] as of this encounter (statuses as of 03/30/2023) Resolved Problems Problem Noted Date Diagnosed Date [...] as of this encounter (statuses as of 03/30/2023) Immunizations Name Administration Dates Next Due COVID-19 mRNA, LNP-s, No Pre serve, 2-Dose Series ([employer]) 02/23/2021,06/06/2020,05/16/2020 Hepatitis B, 20+ yrs 07/16/2015,02/05/2015,01/08 Pneumococcal Conjugate Vacci ne, 20-valent ([email or web address]) 08/23/2021 Pneumococcal Polysaccharide PPV23 (Pneumovax) 01/06/2014 Seasonal [...] encounter Miscellaneous Notes * Telephone Encounter - Blossom Gibson MD - 03/30/2023 8:22 AM EST Signed Prescriptions: Disp Refills Atorvastatin Calcium 20 MG Oral Tablet (Li*90 Tab*1 Sig: TAKE ONE TABLET AT BEDTIME Authorizing Provider: BLOSSOM GIBSON Sertraline HCl 50 MG Oral Tablet (Zoloft) 90 Tab*1 Sig: TAKE ONE TABLET IN THE MORNING Authorizing Provider: BLOSSOM GIBSON metFORMIN HCl ER 500 MG Oral Tablet Extend*360 Ta*1 Sig: TAKE 4 TA BLETS IN THE MORNING Authorizing Provider: BLOSSOM GIBSON Tamsulosin HCl 0.4 MG Oral Capsule (Flomax)90 Cap*1 Sig: TAKE ONE CAPSULE IN THE MORNING Authorizing Provider: BLOSSOM GIBSON * Telephone Encounter - Yadira Izaguirre, [facility] - 2023 3:02 PM ESTPending Prescriptions: Disp Refills Atorvastatin Calcium 20 MG Oral Tablet [Ph*90 Tab*1 Sig: TAKE ONE TABLET AT BEDTIME Sertraline HCl 50 MG Oral Tablet [Pharmacy*90 Tab*1 Sig: TAKE ONE TABLET IN THE MORNING metFORMIN HCl ER 500 MG Oral Tablet Extend*360 Ta*1 Sig: TAKE 4 TABLETS IN THE MORNING Tamsulosin HCl 0.4 MG Oral Capsule [Pharma*90 Cap*1 Sig: TAKE ONE CAPSULE IN THE MORNING * Telephone Encounter - Yadira Izaguirre, [facility] - 2023 3:01 PM EST Patient has no PCP under whom to authorize refills. Please approve if appropriate. Thank you, Yadira Izaguirre, PharmD Clinical Pharmacist [facility] ([facility]) 03/29/23 3:01 PM [phone] documented in this encounter Plan of Treatment Upcoming Encounters Date Type Department Care Team (Late st Contact Info) Description 04/21/2023 9:20 AM EST Office Visit Family Medicine [address] [place] [phone] Blossom Gibson MD [address] [place] [address] [place] [address] 05/04/2023 3:00 PM EST Office Visit Pharmacy, [address] [place] [address] [place] [address] 06/08/2023 8:30 AM EDT Telemedicine Endocrinology, [place] [address] [place], [place] [phone] Brittaney Reaves PA-C [address] [place], [place] [phone] Health Maintenance Due Date Last Done Comments [...] 12/12/2019, Additional history exists B-12 01/28/2023 01/28/2022, 08/2020, 08/28/2019, Additional history exists Diabetic Eye Exam 09/01/2023 08/31/2022 (Do ne elsewhere), 03/28/2022, 10/08/2020, Additional history exists HbA1c 09/21/2023 03/23/2023, 10/28, 01/28/2022, Additional history exists GFR 11/15/2023 11/14/2022, 1203/2021, 02/11/2021, Additional history exists Albumin/Creatinine Ratio 03/27/2024 [...] of this encounter Visit Diagnoses Diagnosis Type 2 diabetes mellitus with hemoglobin A1c goal of less than 8.5% (HCC) Hyperlipidemia with target LDL less than 100 Other and unspecified hyperlipidemia Adjustment disorder with depressed mood Urinary hesitancy documented in this encounter
--- OUTSIDE RECORDS SUMMARY | 2023-05-24 10:58 | External Medical Summary | Summary of Care ---
Author Name Unknown Organization [facility] Address [address] [facility] [address] Phone [phone] Care Team Providers Care Vp Cardiovascular Name Role Phone Unavailable Primary Care Provider Unavailabl e Encounter Details Date Type Department Care Team (Late st Contact Info) Description 04/07/2023 Telephone Pharmacy, [address] [place] [address] [facility] [address] [place] [address] Allergies Active Allergy Reactions Criticality Noted Date Comments Sulfa Antibiotics Rash Medium 10/07/2013 documented as of this encounter (statuses as of 04/07/2023) Medications Medication Sig Dispensed Refills Start Date [...] THE MORNING 90 Capsule 1 03/30/2023 Active documented as of this encounter (statuses as of 04/07/2023) Active Problems Problem Noted Date Diagnosed Date [...] as of this encounter (statuses as of 04/07/2023) Resolved Problems Problem Noted Date Diagnosed Date [...] as of this encounter (statuses as of 04/07/2023) Immunizations Name Administration Dates Next Due COVID-19 mRNA, LNP-s, No Pre serve, 2-Dose Series ([employer]) 02/23/2021,06/06/2020,05/16/2020 Hepatitis B, 20+ yrs 07/16/2015,02/05/2015,01/08 Pneumococcal Conjugate Vacci ne, 20-valent ([email or web address]) 08/23/2021 Pneumococcal Polysaccharide PPV23 (Pneumovax) 01/06/2014 Seasonal [...] Telephone Encounter - Edna Gonzalez RPh - 04/07/2023 3:50 PM EST Dexcom forms received from [facility]. Completed with updated provider, Dr Blossom Gibson, and faxed back to [phone]. Edna Gonzalez RPh, PharmD Clinical Pharmacist - [facility] 04/07/2023, 3:51 PM [phone] documented in this encounter Plan of Treatment Upcoming Encounters Date Type Department Care Team (Late st Contact Info) Description 04/21/2023 9:20 AM EST Office Visit Family Medicine [address] [place] [phone] Blossom Gibson MD [address] [place] [address] [place] [address] 05/04/2023 3:00 PM EST Office Visit Pharmacy, [address] [place] [address] [place] [address] 06/08/2023 8:30 AM EDT Telemedicine Endocrinology, [place] [address] [place] [address] Brittaney Reaves PA-C [address] [place] [address] Health Maintenance Due Date Last Done Comments [...] 12/12/2019, Additional history exists B-12 01/28/2023 01/28/2022, 07/08/2020, 08/28/2019, Additional history exists Diabetic Eye Exam [...]
--- OUTSIDE RECORDS SUMMARY | 2023-05-24 10:58 | External Medical Summary ---
Author Name Unknown Address Unknown Organization K01:[facility] [place] - [address] [place] [address] Laboratory Report Ordering Provider Test Date Status PERCY PALMER 03/23/2023 09:52:33 Final Observation Date Value Abnormality Reference (Units ) Status SYNC LEUKOCYTES IN BLOOD BY AUTOMATED COUNT 03/23/2023 09:52:33 8.70 4.00-10.80 (K/uL) Final Segs 03/23/2023 09:52:33 73.7 40.0-75.0 (%) Final Lymphs % 03/23/2023 09:52:33 16.7 Below low normal 18.0-42.0 (%) Final Monos 03/23/2023 09:52:33 7.7 1.0-11.0 (%) Final Eosinophils 03/23/2023 09:52:33 1.1 0.0-6.0 (%) Final Basos 03/23/2023 09:52:33 0.5 0.0-2.0 (%) Final Immature Granulocyte, Percent 03/23/2023 09:52:33 0.3 0.0-2.0 (%) Final Absolute Segs 03/23/2023 09:52:33 6.41 1.80-7.70 (K/uL) Final Lymphs, absolute 03/23/2023 09:52:33 1.45 1.00-4.80 (K/ul) Final Monos, Abs 03/23/2023 09:52:33 0.67 0.00-1.10 (K/uL) Final Eos, Abs 03/23/2023 09:52:33 0.10 0.00-0.70 (K/uL) Final Basos, Abs 03/23/2023 09:52:33 0.04 0.00-0.20 (K/uL) Final Immature Granulocytes, Number 03/23/2023 09:52:33 0.03 0.00-0.20 (K/uL) Final Performing Location [facility] [place] - [address] [facility] [address]
--- OUTSIDE RECORDS SUMMARY | 2023-05-24 10:58 | External Medical Summary ---
Author Name Unknown Address Unknown Organization K01[place] [place] [address] [facility] [address] Laboratory Report Ordering Provider Test Date Status PERCY PALMER 03/23/2023 09:52:33 Final Observation Date Value Abnormality Reference (Units ) Status WBC, Total 03/23/2023 09:52:33 8.70 4.00-10.80 (K/uL) Final RBC 03/23/2023 09:52:33 4.69 4.50-5.25 (M/uL) Final Hemoglobin 03/23/2023 09:52:33 13.4 Below low normal 14.0-16.8 (g/dL) Final HCT 03/23/2023 09:52:33 42.6 40.0-48.4 (%) Final MCV 03/23/2023 09:52:33 90.8 82.0-99.5 (fL) Final MCH 03/23/2023 09:52:33 28.6 27.0-34.0 (pg) Final MCHC 03/23/2023 09:52:33 31.5 32.0-36.0 (g/dL) Final RDW 03/23/2023 09:52:33 14.1 11.5-15.5 (%) Final Platelets 03/23/2023 09:52:33 580 Above high normal 140-400 (K/uL) Final MPV 03/23/2023 09:52:33 9.6 6.6-11.1 (fL) Final Nucleated erythrocytes/100 leukocytes [Ratio] in Blood by Automated count 03/23/2023 09:52:33 0 <=0 (/100 WBCs) Final Performing Location [facility] [place] [address] [place] [address]
--- OUTSIDE RECORDS SUMMARY | 2023-05-24 10:59 | External Medical Summary | Summary of Care ---
Author Name Unknown Organization [facility] [address] [facility] [address] Phone [phone] Care Team Providers Care Waste Picker Name Role Phone Basim Slaughter MD Primary Care Provider Reason for Visit * Reason Onset Date Comments Medical Equipment 01/09/2023 Encounter Details Date Type Department Care Team (Late st Contact Info) Description 01/09/2023 Telephone Pharmacy Call Center [phone] [facility] [place] [address] [place] [address] Medical Equipment Allergies Active Allergy Reactions Criticality Noted Date Comments Sulfa Antibiotics Rash Medium 10/07/2013 documented as of this encounter (statuses as of 01/09/2023) Medications Medication Sig Dispensed Refills Start Date [...] times daily 200 Each 5 12/29/2014 Active Insulin Aspart 100 UNIT/ML Injection Solution (NovoLOG)Indicati ons:Type 2 diabetes mellitus with hemoglobin A1c goal of less than 8.5% (HCC) Use up to 90 units daily in insulin pump 90 mL 3 03/01/2022 Active Ketostix In Vitro Strip (Acetone (Urine) [...] MOUTH EVERY DAY WITH BREAKFAST 360 Tablet 10/19/2022 Active Sertraline HCl 50 MG Oral Tablet (Zoloft)Indicatio ns:Adjustment disorder with depressed mood Take 1 Tablet by mouth in the morning. In the morning.. 90 Tablet 10/19/2022 Active Atorvastatin Calcium 20 MG Oral Tablet (Lipitor)Indicati ons:Type 2 diabetes mellitus with hemoglobin A1c goal of less than 8.5% (HCC),Hyperlipide alfonso with target LDL less than 100 TAKE ONE TABLET BY MOUTH AT BEDTIME 90 Tablet 1 10/19/2022 Active Omnipod 5 G6 Intro (Gen 5) Kit Use to administer insulin daily. Contains controller + 11 pods. 1 Kit 0 12/12/2022 3 Active Omnipod 5 G6 Pod (Gen [...] EVERY DAY 90 Tablet 3 01/05/2023 Active documented as of this encounter (statuses as of 01/09/2023) Active Problems Problem Noted Date Diagnosed Date [...] as of this encounter (statuses as of 01/09/2023) Resolved Problems Problem Noted Date Diagnosed Date [...] as of this encounter (statuses as of 01/09/2023) Immunizations Name Administration Dates Next Due COVID-19 mRNA, LNP-s, No Pre serve, 2-Dose Series ([employer]) 02/23/2021,06/06/2020,05/16/2020 Hepatitis B, 20+ yrs 07/16/2015,02/05/2015,01/08 Pneumococcal Conjugate Vacci ne, 20-valent ([id number]) 08/23/2021 Pneumococcal Polysaccharide PPV23 (Pneumovax) 01/06/2014 SEASONAL INFLUENZA, PF, 6 M & Above, IM , (FLULAVAL or FLUZONE) 12/08/2021,12/17/2020,12/12/2019,12/26,12/27/2017,01/04/2017 Seasonal Influenza, Quadriva lent, No Preserve, [...] encounter Miscellaneous Notes * Telephone Encounter - Deborah Vasquez RPh - 01/09/2023 2:08 PM EST Spoke to patient via phone. Patient notes will be on omnipod 5 when he attends his next appointmentas getting trained on 01/11. Deborah Vasquez, Pharm D, BCACP Clinical Pharmacist 01/09/2023, 2:10 PM * Telephone Encounter - Kenia Horowitz PHARM Tech - 01/09/2023 1:56 PM EST Caller's name: Corey Debra call back number(OFFICE NUMBER FOR ): [phone] Reason for call: Medical Equip Pt calling asking to speak to Edna re: the Omnipod 5. Pls call pt to discuss. Kenia Horowitz Or Assistant [facility] ([facility]) (Formerly Telepharmacy) 01/09/2023, 1:57 PM documented in this encounter Plan of Treatment Upcoming Encounters Date Type Department Care Team (Late st Contact Info) Description 01/25/2023 3:00 PM EST Office Visit Pharmacy, [address] [place] [address] [place] [address] 04/17/2023 4:00 PM EST Office Visit Family Medicine [address] [place] [phone] Blossom Gibson MD [address] [place] [address] [place] [address] 06/08/2023 8:30 AM EDT Telemedicine Endocrinology, [place] [address] [place] [address] Brittaney Reaves PA-C [address] [place] [address] Health Maintenance Due Date Last Done Comments [...] 12/12/2019, Additional history exists B-12 01/28/2023 01/28/2022, 0 08/2020, 08/28/2019, Additional history exists HbA1c 05/15/2023 11/14/2022, 03/2021, 02/11/2021, Additional history exists Diabetic Eye Exam 09/01/2023 08/31/2022 (Do ne elsewhere), 03/28/2022, 10/08/2020, Additional history exists Albumin/Creatinine Ratio 11/15/2023 023, 01/28/2022, 04/30/2021, Additional history exists GFR 11/15/2023 11/14/2022, 03/2021, 02/11/2021, Additional history exists DTaP,Tdap,and Td [...] filedocumented as of this encounter Care Teams Waste Picker Relationship Specialty Start Date End Date Basim Slaughter MD [address] [place] [address] [place] [address] PCP - General Family Medicine 11/18/13 documented as of this encounter
--- OUTSIDE RECORDS SUMMARY | 2023-05-24 10:59 | External Medical Summary | Summary of Care ---
Author Name Unknown Organization [facility] Address [address] [facility] [place] [address] Phone [phone] Care Team Providers Care Tube Closing Machine Operator Name Role Phone Basim Slaughter MD Primary Care Provider Reason for Visit * Reason Onset Date Comments Health Maintenance 12/23/2022 Encounter Details Date Type Department Care Team (Late st Contact Info) Description 12/23/2022 Telephone Family Medicine [address] [phone] Basim Slaughter MD [address] [place] [address] MD [id number] Health Maintenance Allergies Active Allergy Reactions Criticality Noted Date Comments Sulfa Antibiotics Rash Medium 10/07/2013 documented as of this encounter (statuses as of 12/23/2022) Medications Medication Sig Dispensed Refills Start Date [...] times daily. E10.9 100 Each 06/08/2022 Active Pantoprazole Sodium 20 MG Oral Tablet Delayed Release (Protonix)Indicat ions:Gastroesopha geal reflux disease with esophagitis without hemorrhage TAKE ONE TABLET BY MOUTH EVERY MORNING 90 Tablet 06/13/2022 Active Lisinopril 20 MG Oral Tablet (Prinivil)Indicat ions:Essential hypertension with goal blood pressure less than 140/90 TAKE ONE TABLET BY MOUTH EVERY DAY 90 Tablet 06/15/2022 Active Tamsulosin HCl 0.4 MG Oral Capsule [...] 90 days) 6 Each 3 12/12/2022 Active documented as of this encounter (statuses as of 12/23/2022) Active Problems Problem Noted Date Diagnosed Date [...] as of this encounter (statuses as of 12/23/2022) Resolved Problems Problem Noted Date Diagnosed Date [...] as of this encounter (statuses as of 12/23/2022) Immunizations Name Administration Dates Next Due COVID-19 mRNA, LNP-s, No Pre serve, 2-Dose Series (GetApp) 02/23/2021,06/06/2020,05/16/2020 Hepatitis B, 20+ yrs 07/16/2015,02/05/2015,01/08 Pneumococcal Conjugate Vacci ne, 20-valent ([id number]) 08/23/2021 Pneumococcal Polysaccharide PPV23 (Pneumovax) 01/06/2014 SEASONAL [...] encounter Miscellaneous Notes * Telephone Encounter - Aayush ManleyFORTINO davis - 12/23/2022 10:30 AM EDT Care Gaps Comprehensive Care Outreach Last Office/Telemedicine Visit: 04/05/2022 (in office), 10/13/2022 (telemedicine) Next Office Visit: 04/17/2023 Hemoglobin AIC Results: Lab Results Component Value Date/Time HEMOGLOBIN A1C - [facility] 8.4 (H) 11/14/2022 08:10 AM HEMOGLOBIN A1C - [facility] 8.1 (H) 01/28/2022 02:08 PM HEMOGLOBIN A1C - [facility] 8.5 (H) 02/11/2021 04:09 PM HEMOGLOBIN A1C - [facility] 8.2 (H) 08/28/2019 08:37 AM HEMOGLOBIN A1C - [facility] 9.6 (H) 05/08/2019 12:47 PM HEMOGLOBIN A1C - [facility] 8.8 (H) 12/26/2018 12:33 PM Reviewed Health Maintenance below: Health Maintenance Topic Date Due HIV Screening Never done Colorectal Cancer Screening Never done Depression Screening 12/11/2020 Zoster Vaccines (1 of 2) Never done Diabetic Foot Exam 08/23/2022 Influenza Vaccine (FLU shot) (1) 10/28/2022 COVID-19 Vaccine ( season) 2022 B-12 01/28/2023 HbA1c 05/15/2023 Colon my g Lab already ordered Care Gap Outreach Action Taken: Myportal message sent documented in this encounter Plan of Treatment Upcoming Encounters Date Type Department Care Team (Late st Contact Info) Description 01/06/2023 9:40 AM EST Office Visit Pharmacy, [address] [place] [address] [place] [phone] 04/17/2023 4:00 PM EST Office Visit Family Medicine [address] [place] [phone] Blossom Gibson MD [address] [place] [address] [place] [address] 06/08/2023 8:30 AM EDT Telemedicine Endocrinology, [place] [address] [place] [address] Brittaney Reaves PA-C [address] [place] [address] Health Maintenance Due Date Last Done Comments HIV Screening 1987 Cologuard 2017 Colonoscopy 2017 Colorectal Cancer Screening 2017 Fecal Occult Blood Test 2017 Sigmoidoscopy 2017 Depression Screening 12/11/2020 12/12/2019 Zoster Vaccines (1 of 2) 2022 Diabetic Foot Exam 08/23/2022 08/23/2021, 0 06/12/2018, 06/14/2017, Additional history exists COVID-19 Vaccine (24 season) 2022 02/23/2021, 06/06/2020, 05/16/2020 Influenza Vaccine (FLU shot) (#1) 2022 12/08/2021, 12/17/2020, 12/12/2019, Additional history exists B-12 01/28/2023 01/28/2022, 070 08/2020, 08/28/2019, Additional history exists HbA1c 05/15/2023 11/14/2022, 120 03/2021, 02/11/2021, Additional history exists DIABETES-EYE EXAM 09/01/2023 08/31/2022 (Do ne elsewhere), 03/28/2022, 10/08/2020, Additional history exists Albumin/Creatinine Ratio 11/15/2023 023, 01/28/2022, 04/30/2021, Additional history exists GFR 11/15/2023 11/14/2022, 1203/2021, 02/11/2021, Additional history exists DTaP,Tdap,and Td Vaccines (2 - Td or Tdap) 09/15/2027 09/14/2017 Lipid Panel 11/15/2027 11/14/2022, 1203/2021, 07/28/2020, Additional history exists Hepatitis B Completed [...] filedocumented as of this encounter Care Teams Tube Closing Machine Operator Relationship Specialty Start Date End Date Basim Slaughter MD [address] [place] [address] [place] [address] PCP - General Family Medicine 11/18/13 documented as of this encounter
--- OUTSIDE RECORDS SUMMARY | 2023-05-24 10:59 | External Medical Summary | Summary of Care ---
Author Name Unknown Organization [facility] Address [address] [facility] [place] [address] Phone [phone] Care Team Providers Care Shower Screen Installer Name Role Phone Basim Domingo MD Primary Care Provider [phone] Reason for Visit * Reason Comments eRx-Medication Refill Encounter Details Date Type Department Care Team (Late st Contact Info) Description 01/04/2023 Refill Family Medicine [address] [phone] Basim Domingo MD [address] [place], [place] [address] [address] Gastroesophageal reflux disease with esophagitis without hemorrhage; Essential hypertension with goal blood pressure less than 140/90 Allergies Active Allergy Reactions Criticality Noted Date Comments Sulfa Antibiotics Rash Medium 10/07/2013 documented as of this encounter (statuses as of 01/05/2023) Medications Medication Sig Dispensed Refills Start Date [...] daily 200 Each 5 12/30/19 15 Active Insulin Aspart 100 UNIT/ML Injection Solution (NovoLOG)Indicat ions:Type 2 diabetes mellitus with hemoglobin A1c goal of less than 8.5% ([facility]) Use up to 90 units daily in insulin pump 90 mL 3 03/01/19 Active Ketostix In Vitro Strip (Acetone (Urine) [...] times daily. E10.9 100 Each 06/09/19 Active Tamsulosin HCl 0.4 MG Oral Capsule (Flomax)Indicati ons:Urinary hesitancy Take 1 Capsule by mouth in the morning. 90 Capsule 10/20/19 Active metFORMIN HCl ER 500 MG Oral Tablet Extended Release 24 Hour (Glucophage XR)Indications:T ype 2 diabetes mellitus with hemoglobin A1c goal of less than 8.5% (HCC) TAKE 4 TABLETS BY MOUTH EVERY DAY WITH BREAKFAST 360 Tablet 10/20/19 Active Sertraline HCl 50 MG Oral Tablet (Zoloft)Indicati ons:Adjustment disorder with depressed mood Take 1 Tablet by mouth in the morning. In the morning.. 90 Tablet 10/20/19 Active Atorvastatin Calcium 20 MG Oral Tablet (Lipitor)Indicat ions:Type 2 diabetes mellitus with hemoglobin A1c goal of less than 8.5% (HCC),Hyperlipid emia with target LDL less than 100 TAKE ONE TABLET BY MOUTH AT BEDTIME 90 Tablet 1 10/20/19 Active Omnipod 5 G6 Intro (Gen 5) Kit Use to administer insulin daily. Contains controller + 11 pods. 1 Kit 0 12/13/19 23 023 Active Omnipod 5 G6 Pod (Gen 5) [...] DAY 90 Tablet 3 01/06/20 23 Active Pantoprazole Sodium 20 MG Oral Tablet Delayed Release (Protonix)Indica tions:Gastroesop hageal reflux disease with esophagitis without hemorrhage TAKE ONE TABLET BY MOUTH EVERY MORNING 90 Tablet 1 06/14/19 23 023 Discontinued Lisinopril 20 MG Oral Tablet (Prinivil)Indica tions:Essential hypertension with goal blood pressure less than 140/90 TAKE ONE TABLET BY MOUTH EVERY DAY 90 Tablet 1 06/16/19 23 023 Discontinued documented as of this encounter (statuses as of 01/05/2023) Active Problems Problem Noted Date Diagnosed Date [...] as of this encounter (statuses as of 01/05/2023) Resolved Problems Problem Noted Date Diagnosed Date [...] as of this encounter (statuses as of 01/05/2023) Immunizations Name Administration Dates Next Due COVID-19 mRNA, LNP-s, No Pre serve, 2-Dose Series (Pfizer) 02/23/2021,06/06/2020,05/16/2020 Hepatitis B, 20+ yrs 07/16/2015,02/05/2015,01/08 Pneumococcal Conjugate Vacci ne, 20-valent ([id number]) 08/23/2021 Pneumococcal Polysaccharide PPV23 (Pneumovax) 01/06/2014 SEASONAL [...] encounter Miscellaneous Notes * Telephone Encounter - Brando Raymundo, [facility] - 01/05/2023 11:41 AM ESTSigned Prescriptions: Disp Refills Pantoprazole Sodium 20 MG Oral Tablet Dana*90 Tab*3 Sig: TAKE ONE TABLET IN THE MORNINGAuthorizing Provider: BASIM DOMINGO AOrlynn User: BRANDO RAYMUNDO Lisinopril 20 MG Oral Tablet (Prinivil) 90 Tab*3 Sig: TAKE ONE TABLET EVERY DAYAuthorizing Provider: BASIM DOMINGO User: BRANDO RAYMUNDO documented in this encounter Plan of Treatment Upcoming Encounters Date Type Department Care Team (Late st Contact Info) Description 01/25/2023 3:00 PM EST Office Visit Pharmacy, [address] [place] [address] [place] [address] 04/17/2023 4:00 PM EST Office Visit Family Medicine [address] [place] [phone] Blossom Gibson MD [address] [place] [address] [place] [address] 06/08/2023 8:30 AM EDT Telemedicine Endocrinology, [place] [address] [place], [place] [phone] Brittaney Reaves PA-C [address] [place], [place] [phone] Health Maintenance Due Date Last Done Comments [...] 11/14/2022, 120 03/2021, 02/11/2021, Additional history exists Diabetic Eye [...] as of this encounter Visit Diagnoses Diagnosis Gastroesophageal reflux disease with esophagitis without hemorrhage Essential hypertension with goal blood pressure less than 140/90 documented in this encounter Care Teams Shower Screen Installer Relationship Specialty Start Date End Date Basim Domingo MD [address] [place] [address] [place] [phone] PCP - General Family Medicine 11/18/13 documented as of this encounter
--- OUTSIDE RECORDS SUMMARY | 2023-05-24 10:59 | External Medical Summary | Summary of Care ---
Author Name Unknown Organization [facility] Address [address] [place] [address] Phone [phone] Care Team Providers Care Outsole Paraffiner Name Role Phone Basim Slaughter MD Primary Care Provider [phone] Reason for Visit * Reason Onset Date Comments Insulin Pump 12/29/2022 OP5 starting set tings Encounter Details Date Type Department Care Team (Late st Contact Info) Description 12/29/2022 Telephone Endocrinology, [place] [address] [place] [address] Brittaney Reaves PA-C [address] [place] [address] Insulin Pump (OP5 starting settings) Allergies Active Allergy Reactions Criticality Noted Date Comments Sulfa Antibiotics Rash Medium 10/07/2013 documented as of this encounter (statuses as of 12/29/2022) Medications Medication Sig Dispensed Refills Start Date [...] daily. E10.9 100 Each 5 06/08/2022 Active Pantoprazole Sodium 20 MG Oral Tablet Delayed Release (Protonix)Indicat ions:Gastroesopha geal reflux disease with esophagitis without hemorrhage TAKE ONE TABLET BY MOUTH EVERY MORNING 90 Tablet 1 06/13/2022 Active Lisinopril 20 MG Oral Tablet (Prinivil)Indicat ions:Essential hypertension with goal blood pressure less than 140/90 TAKE ONE TABLET BY MOUTH EVERY DAY 90 Tablet 1 06/15/2022 Active Tamsulosin HCl 0.4 MG Oral [...] as of this encounter (statuses as of 12/29/2022) Active Problems Problem Noted Date Diagnosed Date [...] as of this encounter (statuses as of 12/29/2022) Resolved Problems Problem Noted Date Diagnosed Date [...] as of this encounter (statuses as of 12/29/2022) Immunizations Name Administration Dates Next Due COVID-19 mRNA, LNP-s, No Pre serve, 2-Dose Series (Transparentrees) 02/23/2021,06/06/2020,05/16/2020 Hepatitis B, 20+ yrs 07/16/2015,02/05/2015,01/08 Pneumococcal Conjugate Vacci ne, 20-valent ([id number]) 08/23/2021 Pneumococcal Polysaccharide PPV23 (Pneumovax) 01/06/2014 SEASONAL [...] encounter Miscellaneous Notes * Telephone Encounter - Brittaney Reaves PA-C - 12/29/2022 6:53 AM EDT Images from the original note were not included. documented in this encounter Plan of Treatment Upcoming Encounters Date Type Department Care Team (Late st Contact Info) Description 01/06/2023 9:40 AM EST Office Visit Pharmacy, [address] [place] [address] [place] [address] 04/17/2023 4:00 PM EST Office Visit Family Medicine [address] [place] [phone] Blossom Gibson MD [address] [place] [address] [place] [address] 06/08/2023 8:30 AM EDT Telemedicine Endocrinology, [place] [address] [place] [address] Brittaney Reaves PA-C [address] [place], [place] [phone] Health Maintenance Due Date Last Done Comments [...] filedocumented as of this encounter Care Teams Outsole Paraffiner Relationship Specialty Start Date End Date Basim Slaughter MD [address] [place] [address] [place] [address] PCP - General Family Medicine 11/18/13 documented as of this encounter
--- OUTSIDE RECORDS SUMMARY | 2023-05-24 10:59 | External Medical Summary | Summary of Care ---
Author Name Unknown Organization [facility] Address [address] [facility] [place] [address] Phone [phone] Care Team Providers Care Fireworks Display Specialist Name Role Phone Basim Slaughter MD Primary Care Provider Encounter Details Date Type Department Care Team (Late st Contact Info) Description 03/21/2023 Orders Only PATIENT PORTAL DO [place] DELETE [place] [address] Allergies Active Allergy Reactions Criticality Noted Date Comments Sulfa Antibiotics Rash Medium 10/07/2013 documented as of this encounter (statuses as of 03/21/2023) Medications Medication Sig Dispensed Refills Start Date [...] as of this encounter (statuses as of 03/21/2023) Active Problems Problem Noted Date Diagnosed Date [...] as of this encounter (statuses as of 03/21/2023) Resolved Problems Problem Noted Date Diagnosed Date [...] as of this encounter (statuses as of 03/21/2023) Immunizations Name Administration Dates Next Due COVID-19 mRNA, LNP-s, No Pre serve, 2-Dose Series ([employer]) 02/23/2021,06/06/2020,05/16/2020 Hepatitis B, 20+ yrs 07/16/2015,02/05/2015,01/08 Pneumococcal Conjugate Vacci ne, 20-valent ([id number]) 08/23/2021 Pneumococcal Polysaccharide PPV23 (Pneumovax) 01/06/2014 Seasonal [...] Care Team (Late st Contact Info) Description 04/17/2023 9:00 AM EST Office Visit Family Medicine [address] [place] [phone] Blossom Gibson MD [address] [place] [address] [place] [address] 05/04/2023 3:00 PM EST Office Visit Pharmacy, [address] [place] [address] [place] [address] 06/08/2023 8:30 AM EDT Telemedicine Endocrinology, [place] [address] [place] [address] Brittaney Reaves PA-C [address] [facility] [place] [phone] Health Maintenance Due Date Last Done Comments [...] filedocumented as of this encounter Care Teams Fireworks Display Specialist Relationship Specialty Start Date End Date Basim Slaughter MD [address] [place] [address] [place] [address] PCP - General Family Medicine 11/18/13 documented as of this encounter
--- OUTSIDE RECORDS SUMMARY | 2023-05-24 10:59 | External Medical Summary | Summary of Care ---
Author Name Unknown Organization [facility] Address [address] [facility] [place] [address] Phone [phone] Care Team Providers Care Agronomy Advisor Name Role Phone Basim Slaughter MD Primary Care Provider Reason for Visit * Reason Comments Dosage Adjustment In Person (Anticoag Cl inic) Diabetes Follow-Up Encounter Details Date Type Department Care Team (Late st Contact Info) Description 01/25/2023 3:00 PM EST Office Visit Pharmacy, [address] [place] [address] [place] [address] Type 1 diabetes mellitus with hemoglobin A1c goal of less than 7.0% ([facility])* Allergies Active Allergy Reactions Criticality Noted Date Comments Sulfa Antibiotics Rash Medium 10/07/2013 documented as of this encounter (statuses as of 01/25/2023) Medications Medication Sig Dispensed Refills Start Date [...] as of this encounter (statuses as of 01/25/2023) Active Problems Problem Noted Date Diagnosed Date [...] as of this encounter (statuses as of 01/25/2023) Resolved Problems Problem Noted Date Diagnosed Date [...] as of this encounter (statuses as of 01/25/2023) Immunizations Name Administration Dates Next Due COVID-19 mRNA, LNP-s, No Pre serve, 2-Dose Series ([employer]) 02/23/2021,06/06/2020,05/16/2020 Hepatitis B, 20+ yrs 07/16/2015,02/05/2015,01/08 Pneumococcal Conjugate Vacci ne, 20-valent ([id number]) 08/23/2021 Pneumococcal Polysaccharide PPV23 (Pneumovax) 01/06/2014 SEASONAL [...] this encounter Progress Notes * Edna Gonzalez, [facility] - 01/25/2023 2:51 PM EST Images from the original note were not included. Medication Therapy Disease [facility] - Diabetes Management Progress Note Corey Mabry, identified by name and date of , is a 52 year old male being seen for diabetesmanagement/education. Patient presents for return diabetic visit. DIABETES: Current diabetic medications: Metformin ER 500mg - 4 tablets once daily with breakfast NOVOLOG vial via pump Type of pump: Omnipod Augmedix Serial Number: [id number] Type of Insulin: NovoLog Basal Rate: 12AM-6PM - 0.8 units/hour 6 AM - 9PM - 0.8 units/hour 9 PM - 12AM - 1.0 units/hour Insulin to CARB ratio: Midnight: 8 11:30AM: 8 1:30PM: 8 Sensitivity Factor: 45 Blood Glucose goals: 100-120 Lifestyle: Diet: unchanged Glucose Review/SMBG: Readings obtained from patient device Hypoglycemia: Does your blood sugar go below 70 mg/dL? No Hyperglycemia symptoms present: none Recent Labs Units 11/14/22 0810 01/28/22 1408 02/11/21 1609 HEMOGLOBIN A1C - [facility] % 8.4* 8.1* 8.5* Recent Labs Units 11/14/22 0810 01/28/22 1408 02/11/21 1609 ESTIMATED GLOMERULAR FILTRATION RATE - [facility] mL/min >90 >90 >90 CREATININE - [facility] mg/dL 0.6 0.6 0.7 HYPERTENSION: Patient on ACEi/ARB: yes BP Readings from Last 3 Encounters: 04/05/22 124/68 08/23/21 122/70 07/15/21 138/80 Blood pressure at goal: yes HYPERLIPIDEMIA: Patient is taking moderate or high intensity statin: yes HEALTH MAINTENANCE REVIEW: Health Maintenance Due Topic Date Due HIV Screening Never done Colorectal Cancer Screening Never done Depression Screening 12/11/2020 Zoster Vaccines (1 of 2) Never done Diabetic Foot Exam 08/23/2022 Influenza Vaccine (FLU shot) (1) 10/28/2022 COVID-19 Vaccine ( season) 2022 ASSESSMENT & PLAN: ICD-10-CM 1. Type 1 diabetes mellitus with hemoglobin A1c goal of less than 7.0% (HCC) E10.9 Considerations: Follows with [facility] Endocrinology TABBY (diagnosed in early 20s) Looking into OP5 Patient recently transitioned to Omnipod 5. Training facilitated by endocrinology. Downloaded and reviewed through Outsell. Blood sugars have already shown great improvement since utilizing auto mode.Patient notes to less hypoglycemia as well. Lengthy discussion with patient regarding diet. Reports his significant other was recently in a wreck. They do not currently have a car. Due to this patient has been eating high carb foods. Instructed to contact insurance company regarding additional benefits for food/transportation. Provided with local food distribution locations as well and instructed to call and inquire on delivery services. Patient expressed understanding. No changes to regimen at this time. Hopeful with improved diet, readings will continue to show improvement. Patient to contact clinic with any issues or if BG consistently <110. Patient is agreeable to SMBG daily with CGM ([email or web address]) Patient aware to contact clinic if any hypoglycemia before next visit. MEDICATION CHANGES: no change Diabetic Medications: Metformin ER 500mg - 4 tablets once daily with breakfast NOVOLOG vial via pump Type of pump: Omnipod 5 Serial Number: (NEED TO OBTAIN UPDATED SN) Type of Insulin: NovoLog Basal Rate: 12AM-6PM - 0.8 units/hour 6 AM - 9PM - 0.8 units/hour 9 PM - 12AM - 1.0 units/hour Bolus Calculator: on and using Insulin to CARB ratio: Midnight: 8 11:30AM: 8 1:30PM: 8 Sensitivity Factor: 45 Blood Glucose goals: 100-120 HEALTH MAINTENANCE INTERVENTIONS: Deferred d/t time constraints FOLLOW UP: Return to clinic in 6 weeks 03/09/2023 Edna Gonzalez [facility] Clinical Pharmacist - Coating Mixer Medication Therapy Management Clinic 01/25/2023, 2:53 PM documented in this encounter Plan of Treatment Upcoming Encounters Date Type Department Care Team (Late st Contact Info) Description 03/09/2023 3:00 PM EST Office Visit Pharmacy, [address] [place] [address] [place] [address] 04/17/2023 4:00 PM EST Office Visit Family Medicine [address] [place] [phone] Blossom Gibson MD [address] [place] [address] [place] [address] 06/08/2023 8:30 AM EDT Telemedicine Endocrinology, [place] [address] [place] [address] Brittnaey Reaves PA-C [address] [facility] [address] Health Maintenance Due Date Last Done Comments [...] Primary documented in this encounter Care Teams Agronomy Advisor Relationship Specialty Start Date End Date Basim Slaughter MD [address] [place] [address] [place] [phone] PCP - General Family Medicine 11/18/13 documented as of this encounter
--- OUTSIDE RECORDS SUMMARY | 2023-05-24 10:59 | External Medical Summary | Summary of Care ---
Author Name Unknown Organization [facility] Address [address] [facility] [place] [address] Phone [phone] Care Team Providers Care Science And Operations Officer Name Role Phone Basim Slaughter MD Primary Care Provider Reason for Visit * Reason Comments Dosage Adjustment In Person (Anticoag Cl inic) Diabetes Follow-Up Encounter Details Date Type Department Care Team (Late st Contact Info) Description 03/09/2023 3:00 PM EST Office Visit Pharmacy, [address] [place] [address] [place] [address] Type 1 diabetes mellitus with hemoglobin A1c goal of less than 7.0% ([facility])* Allergies Active Allergy Reactions Criticality Noted Date Comments Sulfa Antibiotics Rash Medium 10/07/2013 documented as of this encounter (statuses as of 03/09/2023) Medications Medication Sig Dispensed Refills Start Date [...] as of this encounter (statuses as of 03/09/2023) Active Problems Problem Noted Date Diagnosed Date [...] as of this encounter (statuses as of 03/09/2023) Resolved Problems Problem Noted Date Diagnosed Date [...] as of this encounter (statuses as of 03/09/2023) Immunizations Name Administration Dates Next Due COVID-19 mRNA, LNP-s, No Pre serve, 2-Dose Series (Lat49) 02/23/2021,06/06/2020,05/16/2020 Hepatitis B, 20+ yrs 07/16/2015,02/05/2015,01/08 Pneumococcal Conjugate Vacci ne, 20-valent ([id number]) 08/23/2021 Pneumococcal Polysaccharide PPV23 (Pneumovax) 01/06/2014 Seasonal [...] this encounter Progress Notes * Edna Gonzalez, [facility] - 03/09/2023 2:36 PM EST Images from the original note [...] Recent Labs Units 11/14/22 0810 01/28/22 1408 HEMOGLOBIN A1C - [facility] % 8.4* 8.1* Recent Labs Units 11/14/22 0810 01/28/22 1408 ESTIMATED GLOMERULAR FILTRATION RATE - [facility] mL/min >90 >90 CREATININE - [facility] mg/dL 0.6 0.6 HYPERTENSION: Patient on ACEi/ARB: [...] than 7.0% (HCC) E10.9 Considerations: Follows with [facility] [address] Endocrinology 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 Overall average significantly improved since transitioning to OP5 pump. No s/sx of hypoglycemia noted. Medications - Reviewed current regimen, patient is adherent to regimen. Tolerating well. Discussed pump adjustments. Overall will plan to defer until updated A1c is obtained at upcoming PCP visits. Diet, Exercise, Lifestyle - No significant lifestyle changes since last visit. States they are planning to look into food distribution locations discussed at last visit. Encouraged to do so to continue to help improve diet. Patient is agreeable to SMBG daily with CGM (Echo360 G7) Patient aware to contact clinic if any hypoglycemia before next visit. MEDICATION CHANGES: no change Diabetic Medications: Metformin ER 500mg - 4 tablets once daily with breakfast NOVOLOG vial via pump eGFR > 90 as of 11/14/22 Type of pump: Omnipod 5 Serial Number: [id number] Type of Insulin: NovoLog Basal Rate: 12AM-6PM - 0.8 units/hour 6 AM - 9PM - 0.8 units/hour 9 PM - 12AM - 1.0 units/hour Bolus Calculator: on and using Insulin to CARB ratio: Midnight: 8 11:30AM: 8 1:30PM: 8 Sensitivity Factor: 45 Target Glucose: 120mg/dL Correct Above: 140mg/dL HEALTH MAINTENANCE INTERVENTIONS: Deferred d/t time constraints FOLLOW UP: Return to clinic in 8 weeks 05/04/2023 Edna Gonzalez [facility] Clinical Pharmacist - Group Program Manager Medication Therapy Management Clinic 03/09/2023, 2:36 PM documented in this encounter Plan of Treatment Upcoming Encounters Date Type Department Care Team (Late st Contact Info) Description 04/17/2023 9:00 AM EST Office Visit Family Medicine [address] [place] [phone] Blossom Gibson MD [address] [place] [address] [place] [address] 05/04/2023 3:00 PM EST Office Visit Pharmacy, [address] [place] [address] [place] [address] 06/08/2023 8:30 AM EDT Telemedicine Endocrinology, [place] [address] [place] [address] Brittaney Reaves [facility] [address] [facility] [address] Health Maintenance Due Date Last Done Comments [...] Primary documented in this encounter Care Teams Science And Operations Officer Relationship Specialty Start Date End Date Basim Slaughter MD [address] [place] [address] [place] [address] PCP - General Family Medicine 11/18/13 documented as of this encounter
--- OUTSIDE RECORDS SUMMARY | 2023-05-24 10:59 | External Medical Summary | Summary of Care ---
Author Name Unknown Organization [facility] [address] [facility] [address] Phone [phone] Care Team Providers Care Team Lead Name Role Phone Basim Slaughter MD Primary Care Provider Reason for Visit * Reason Onset Date Comments Advice 12/13/2022 Encounter Details Date Type Department Care Team Description 12/13/2022 Telephone Pharmacy Call Center [address] [facility] [place]isen[place] [phone] [place] [address] Advice Allergies Active Allergy Reactions Severity Noted Date Comments Sulfa Antibiotics Rash Medium 10/07/2013 documented as of this encounter (statuses as of 12/14/2022) Medications Medication Sig Dispensed Refills Start Date [...] as of this encounter (statuses as of 12/14/2022) Active Problems Problem Noted Date Type 1 diabetes mellitus with hemoglobin A1c goal of less than 7.0% 02/04/2022 DM type 1, not at goal 02/04/2022 Insulin pump status 02/04/2022 Gastroesophageal reflux disease with eso phagitis without hemorrhage 02/11/2021 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 02 Primary hypertension Hyperlipidemia with target LDL less than 100 Overview: ICD-10 update of inactive term Vitamin D deficiency Adjustment disorder with depressed mood documented as of this encounter (statuses as of 12/14/2022) Resolved Problems Problem Noted Date Resolved Date Type 2 diabetes mellitus wit h hemoglobin A1c goal of less than 7.5% 11/29/2013 12/29/2014 Overview: ICD-10 update of inactive term HYPERTENSION NOS 04/05/2001 01/06/2014 Reflux esophagitis 02/11/2021 Type 2 diabetes mellitus wit h hemoglobin A1c goal of less than 7.0% 01/06/2014 Overview: ICD-10 update of inactive term documented as of this encounter (statuses as of 12/14/2022) Immunizations Name Administration Dates Next Due COVID-19 mRNA, LNP-s, No Pre serve, 2-Dose Series ([employer]) 02/23/2021,06/06/2020,05/16/2020 Hepatitis B, 20+ yrs 07/16/2015,02/05/2015,01/08 Pneumococcal Conjugate Vacci ne, 20-valent ([id number]) 08/23/2021 Pneumococcal Polysaccharide PPV23 (Pneumovax) 01/06/2014 SEASONAL [...] 0.6 oz pur e alcohol) rare beer Food Insecurity Answer Date Recorded Within the past 12 months, y ou worried that your food would run out before you got money to buy more. Never true 09/25/2018 Within the past 12 months, t he food you bought just didn't last and you didn't have money to get more. Never true 09/25/2018 Sex Assigned at Date Recorded Not on file Job Start Date Occupation Industry Not on file Not on file Not on file documented as of this encounter Miscellaneous Notes * Telephone Encounter - Edna Gonzalez RPh - 12/14/2022 1:47 PM EDT Patient Phone Numbers Returned patient's call. He plans to contact [facility] to facilitate OP5 training. Reviewed that oncethis is completed, MTM will continue to manage. Will plan to follow up as previously scheduled. Edna Gonzalez RPh, PharmD Clinical Pharmacist - Gas Line Servicer Medication Therapy Disease Management Clinic 12/14/2022, 1:48 PM Ph.[phone] * Telephone Encounter - FERNANDO Bowman - 12/13/2022 10:28 AM EDT Caller's name: Corey Richardson call back number(OFFICE NUMBER FOR ): [phone] Reason for call: Pt calling to speak to Tari Bishop in regards to the Omnipod he is going to start using. Pt states he has questions he would like to discuss. Thank you, Samra Moya Assistant Statistician [facility] ([facility]) (formerly Telepharmacy) 12/13/2022,10:29 AM documented in this encounter Plan of Treatment Upcoming Encounters Date Type Specialty Care Team Description 12/21/2022 Office Visit Pharmacy [address] [place] [address] 04/17/2023 Office Visit Family Medicine Blossom Gibson MD [address] [place] [address] [place] [address] 06/08/2023 Telemedicine Endocrinology Brittaney Reaves PA-C [address] [place] [address] Health Maintenance Due Date Last Done Comments [...] 05/15/2023 11/14/2022, 03/2021, 02/11/2021, Additional history exists DIABETES-EYE EXAM [...] filedocumented as of this encounter Care Teams Team Lead Relationship Specialty Start Date End Date Basim Slaughter MD [address] [place] [address] [place] [address] PCP - General Family Medicine 11/18/13 documented as of this encounter
--- OUTSIDE RECORDS SUMMARY | 2023-05-24 10:59 | External Medical Summary | Summary of Care ---
Author Name Unknown Organization [facility] Address [address] [facility] [place] [address] Phone [phone] Care Team Providers Care Armature Varnisher Name Role Phone Basim Domingo MD Primary Care Provider Reason for Visit * Reason Comments eRx-Medication Refill Encounter Details Date Type Department Care Team (Late st Contact Info) Description 03/13/2023 Refill Pharmacy, [address] [place] [address] Basim Domingo MD [address] [place] [address] [place] [address] Type 2 diabetes mellitus with hemoglobin A1c goal of less than 8.5% ([facility]) Allergies Active Allergy Reactions Criticality Noted Date Comments Sulfa Antibiotics Rash Medium 10/07/2013 documented as of this encounter (statuses as of 03/13/2023) Medications Medication Sig Dispensed Refills Start Date [...] and abdominal pain. 50 Strip 5 06/09/19 23 Active Gvoke HypoPen 2-Pack 1 MG/0.2ML Subcutaneous [...] WITH BREAKFAST 360 Tablet 1 10/20/19 23 Active Sertraline HCl 50 MG Oral Tablet [...] AT BEDTIME 90 Tablet 1 10/20/19 23 Active Omnipod 5 G6 Pod (Gen 5) Use a new pod every 72 hours to administer insulin (30 pods for 90 days) 6 Each 3 12/13/19 Active Pantoprazole Sodium 20 MG Oral Tablet [...] pump 90 mL 3 03/13/19 24 Active Insulin Aspart 100 UNIT/ML Injection Solution (NovoLOG)Indicat ions:Type 2 diabetes mellitus with hemoglobin A1c goal of less than 8.5% (HCC) Use up to 90 units daily in insulin pump 90 mL 3 03/01/19 23 024 Discontinued documented as of this encounter (statuses as of 03/13/2023) Active Problems Problem Noted Date Diagnosed Date [...] as of this encounter (statuses as of 03/13/2023) Resolved Problems Problem Noted Date Diagnosed Date [...] as of this encounter (statuses as of 03/13/2023) Immunizations Name Administration Dates Next Due COVID-19 mRNA, LNP-s, No Pre serve, 2-Dose Series ([employer]) 02/23/2021,06/06/2020,05/16/2020 Hepatitis B, 20+ yrs 07/16/2015,02/05/2015,01/08 Pneumococcal Conjugate Vacci ne, 20-valent ([id number]) 08/23/2021 Pneumococcal Polysaccharide PPV23 (Pneumovax) 01/06/2014 Seasonal [...] encounter Miscellaneous Notes * Telephone Encounter - Magnus Ayon RPh - 03/13/2023 8:09 AM EST Signed Prescriptions: Disp Refills Insulin Aspart 100 UNIT/ML Injection Solut*90 mL 3 Sig: Use up to 90 units daily in insulin pumpAuthorizing Provider: BASIM DOMINGO User: MAGNUS AYON documented in this encounter Plan of Treatment Upcoming Encounters Date Type Department Care Team (Late st Contact Info) Description 04/17/2023 9:00 AM EST Office Visit Family Medicine [address] [place] [phone] Blossom Gibson MD [address] [place] [address] [place] [address] 05/04/2023 3:00 PM EST Office Visit Pharmacy, [address] [place] [address] [place] [address] 06/08/2023 8:30 AM EDT Telemedicine Endocrinology, [place] [address] [place] [address] Brittaney Reaves PA-C [address] [place] [address] Health Maintenance Due Date Last Done Comments [...] A1c goal of less than 8.5% (HCC) documented in this encounter Care Teams Armature Varnisher Relationship Specialty Start Date End Date Basim Domingo MD [address] [place] [address] [place] [phone] PCP - General Family Medicine 11/18/13 documented as of this encounter
--- OUTSIDE RECORDS SUMMARY | 2023-05-24 10:59 | External Medical Summary | Summary of Care ---
Author Name Unknown Organization [facility] Address [address] [facility] [place] [address] Phone [phone] Care Team Providers Care Concrete Carpenter Name Role Phone Basim Slaughter MD Primary Care Provider Encounter Details Date Type Department Care Team (Late st Contact Info) Description 03/20/2023 6:20 PM EST Telemedicine Family Practice Martin [address] [place] [address] Mojgan Lopez CRNP [address] [place] [address] Hematuria, unspecified type*; Nocturnal polyuria; Dysuria; 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HCC); DM type 1, not at goal (HCC) Allergies Active Allergy Reactions Criticality Noted Date Comments Sulfa Antibiotics Rash Medium 10/07/2013 documented as of this encounter (statuses as of 03/20/2023) Medications Medication Sig Dispensed Refills Start Date [...] as of this encounter (statuses as of 03/20/2023) Active Problems Problem Noted Date Diagnosed Date [...] as of this encounter (statuses as of 03/20/2023) Resolved Problems Problem Noted Date Diagnosed Date [...] as of this encounter (statuses as of 03/20/2023) Immunizations Name Administration Dates Next Due COVID-19 mRNA, LNP-s, No Pre serve, 2-Dose Series ([employer]) 02/23/2021,06/06/2020,05/16/2020 Hepatitis B, 20+ yrs 07/16/2015,02/05/2015,01/08 Pneumococcal Conjugate Vacci ne, 20-valent ([id number]) 08/23/2021 Pneumococcal Polysaccharide PPV23 (Pneumovax) 01/06/2014 Seasonal [...] as of this encounter Progress Notes * Mojgan Lopez CRNP - 03/20/2023 6:19 PM EST Images from the original note were not included. Patient location: HOME. I was in a hospital or clinic location. After connecting through televideo,patient was verified with two unique identifiers. Patient (or authorized legal nutrition representative) was then informed that this was a Telemedicine visit and being conducted confidentially over secure lines. Methods to assure confidentiality were taken. Patient acknowledged consent and understanding of pr ivacy and security of the Telemedicine visit. The patient agreed to participate. History of Present Illness Corey Mabry is a 52 year old male that presents for No chief complaint on file. Patient presents via telemedicine for acute visit Patient states when he was urinating earlier he noted some blood in the urine. Patient states a similar thing happened a couple of weeks ago, he thought he saw a stone pass at that time. Patient states the bleeding disappeared after the stone passed and has not been an issue since today. Patient does admit to polyuria, nocturia, and some dysuria. Patient's PCP did start patient on Flomax in the past for nocturia. No recent PSA on file. Patient does not have any history kidney stones. Patient is not on any blood thinners. Social History Tobacco Use Smoking status: Never Smokeless tobacco: Never Substance Use Topics Alcohol use: Yes Comment: rare beer Drug use: No Assessment and Plan Hematuria, unspecified type Nocturnal polyuria Dysuria Patient states he recently saw a stone pass a few weeks ago Hematuria could be related to kidney stones Need to rule out other causes: will check a CBC, UA, Urine culture, and PSA Patient encouraged to adequately hydrate Patient can continue to take Flomax Patient states he will try to get into clinic to do blood work and urine this week Patient encouraged to follow up with PCP, upcoming appointment in March - URINALYSIS, REFLEX TO MICROSCOPIC; Future - CULTURE, URINE, QUANTITATIVE - CBC WITH WBC DIFFERENTIAL; Future - PSA; Future - URINALYSIS, REFLEX TO MICROSCOPIC; Future - CULTURE, URINE, QUANTITATIVE Return if symptoms worsen or fail to improve. I spent a total of 30-39 minutes (exact time 30 mins) on the date of service in preparation, delivery, and documentation of the care provided to Corey Mabry excluding any time spent in the performance of separately billed services. [facility] Martin [place] [address] [place] [address] documented in this encounter Plan of Treatment Upcoming Encounters Date Type Department Care Team (Late st Contact Info) Description 04/17/2023 9:00 AM EST Office Visit Family Medicine [address] [place] [phone] Blossom Gibson MD [address] [place] [address] [place] [address] 05/04/2023 3:00 PM EST Office Visit Pharmacy, [address] [place] [address] [place] [address] 06/08/2023 8:30 AM EDT Telemedicine Endocrinology, [place] [address] [place] [address] Brittaney Reaves PA-C [address] [place] [address] Scheduled Orders Name Type Priority Associated Diagnoses Orde r Schedule PSA Lab Routine Nocturnal polyuria Expected: 03/20/2023 (Approximate), Expires: 03/19/2024 URINALYSIS, REFLEX TO MICROSCOPIC Lab Routine Nocturnal polyuria Hematuria, unspecified type Expected: 03/27/2023, Expires: 03/20/2024 CULTURE, URINE, QUANTITATIVE Lab Routine Nocturnal polyuria Hematuria, unspecified type Ordered: 03/20/2023 CBC WITH WBC DIFFERENTIAL Lab Routine Hematuria, unspecified type Expected: 03/20/2023 (Approximate), Expires: 03/20/2024 Health Maintenance Due Date Last Done Comments [...] 12/12/2019, Additional history exists B-12 01/28/2023 01/28/2022, 0708/2020, 08/28/2019, Additional history exists HbA1c 05/15/2023 11/14/2022, [...] as of this encounter Visit Diagnoses Diagnosis Hematuria, unspecified type- Primary Nocturnal polyuria Nocturia Dysuria 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HCC) Congenital diplegia DM type 1, not at goal (HCC) Type I (juvenile type) diabetes mellitus without mention of complication, not stated as uncontrolled documented in this encounter Care Teams Concrete Carpenter Relationship Specialty Start Date End Date Basim Slaughter MD [address] [place] [address] [place] [address] PCP - General Family Medicine 11/18/13 documented as of this encounter
--- OUTSIDE RECORDS SUMMARY | 2023-05-24 10:59 | External Medical Summary | Summary of Care ---
Author Name Unknown Organization [facility] Address [address] [facility] [address] Phone [phone] Care Team Providers Care Heavy Duty Mechanic Name Role Phone Basim Slaughter MD Primary Care Provider [phone] Reason for Visit * Reason Onset Date Comments Advice 12/14/2022 Encounter Details Date Type Department Care Team Description 12/14/2022 Telephone Pharmacy Call Center [address] [facility] [place] [phone] [place] [address] Advice Allergies Active Allergy Reactions Severity Noted [...] mRNA, LNP-s, No Pre serve, 2-Dose Series ([employer]) 02/23/2021,06/06/2020,05/16/2020 Hepatitis B, 20+ yrs 07/16/2015,02/05/2015,01/08 Pneumococcal Conjugate Vacci ne, 20-valent ([id number]) 08/23/2021 Pneumococcal Polysaccharide PPV23 (Pneumovax) 01/06/2014 SEASONAL [...] Encounter - Edna Gonzalez RPh - 12/14/2022 1:42 PM EDT Patient Phone Numbers Duplicate, Addressed in separate encounter. Edna Gonzalez RPh, PharmD Clinical Pharmacist - Lead Developer Medication Therapy Disease Management Clinic 12/14/2022, 1:42 PM [phone] * Telephone Encounter - FERNANDO Montanez Tech - 12/14/2022 12:11 PM EDT Caller's name: Corey Richardson call back number(OFFICE NUMBER FOR ): [phone] Reason for call: Pump question/ issue: Pt stated he has questions regarding his Omnipod Pump. Also informed pt that providers do have a turn around time to respond to messages (72hrs). Pt expressed understanding. Thank you, Diamond Angel Private Branch Exchange Repairer Centralized [facility] ([facility]) (Formerly Telepharmacy) 12/14/2022, 12:11 PM documented in this encounter Plan of Treatment Upcoming Encounters Date Type Specialty Care Team Description 12/21/2022 Office Visit Pharmacy [address] [place] [address] 04/17/2023 Office Visit Family Medicine Blossom Gibson MD [address] [place] [address] [place] [address] 06/08/2023 Telemedicine Endocrinology Brittaney Reaves PA-C [address] [place], [place] [phone] Health Maintenance Due Date Last Done Comments [...] 11/14/2022, 12/0 03/2021, 02/11/2021, Additional history exists DIABETES-EYE EXAM [...] filedocumented as of this encounter Care Teams Heavy Duty Mechanic Relationship Specialty Start Date End Date Basim Slaughter MD [address] [place] [address] [place] [address] PCP - General Family Medicine 11/18/13 documented as of this encounter
--- OUTSIDE RECORDS SUMMARY | 2023-05-24 11:00 | External Medical Summary | Summary of Care ---
Author Name Unknown Organization [facility] Address [address] [place] [address] Phone [phone] Care Team Providers Care Central Service Supply Distributor Name Role Phone Basim Slaughter MD Primary Care Provider [phone] Reason for Visit * Reason Comments Insulin Pump Diabetes Follow-Up * Evaluate & Treat - Unlimited Visits (Within 10 days (routine)) - Authorized Specialty Diagnoses / Procedures Referred By Jann sylvester Referred To Contact Endocrinology/Metabolism / Endocrinology Basim Slaughter MD [address] [place] [address] [place] [address] Brittaney Reaves PA-C [address] [place] [address] Referral ID Status Reason Start Date Expiration Date Visits Requested Visits Authorized [id number] Authorized Specialty Services Required 3 01/12/2023 [id number] Encounter Details Date Type Department Care Team Description 12/12/2022 Telemedicine [facility] [address] [place], [place] [id number] Brittaney Reaves PA-C [address] [place], [place] [id number] DM type 1, not at goal ([facility])*; Insulin pump status; Type 1 diabetes mellitus with hemoglobin A1c goal of less than 7.0% ([facility]) Allergies Active Allergy Reactions Severity Noted Date Comments Sulfa Antibiotics Rash Medium 10/07/2013 documented as of this encounter (statuses as of 12/12/2022) Medications Medication Sig Dispensed Refills Start Date [...] times daily 200 Each 5 5 Active Insulin Aspart 100 UNIT/ML Injection Solution (NovoLOG)Indicati ons:Type 2 diabetes mellitus with hemoglobin A1c goal of less than 8.5% ([facility]) Use up to 90 units daily in insulin pump 90 mL 3 3 Active Ketostix In Vitro Strip (Acetone (Urine) Test) Test urine for ketones every 2 hours if you experience nausea, vomiting and abdominal pain. 50 Strip 5 3 Active Gvoke HypoPen 2-Pack 1 MG/0.2ML Subcutaneous Solution Auto-injector (Glucagon) Inject 1.0 mg under the skin of belly/thigh or upper arm as needed for unresponsiveness due to suspected hypoglycemia 0.4 mL 3 Active Insulin Glargine Solostar 100 UNIT/ML Subcutaneous Solution Pen-injector (Lantus SoloStar) FOR PUMP BACK UP: Injected under the skin, one time(s) per day:18 units. TDD: 20. ICD10: E11.9 15 mL 3 Active BD Pen Needle Noemi U/F 32G X 4 MM (Insulin Pen Needle) Use four times daily w/ insulin 100 Each 3 Active Insulin Syringe-Needle U-100 31G X 5/16" 0.3 ML (B-D INSULIN SYRINGE ULTRAFINE) For pump back up: injecting insulin 4 times daily. E10.9 100 Each 3 Active Pantoprazole Sodium 20 MG Oral Tablet Delayed Release (Protonix)Indicat ions:Gastroesopha geal reflux disease with esophagitis without hemorrhage TAKE ONE TABLET BY MOUTH EVERY MORNING 90 Tablet 1 3 Active Lisinopril 20 MG Oral Tablet (Prinivil)Indicat ions:Essential hypertension with goal blood pressure less than 140/90 TAKE ONE TABLET BY MOUTH EVERY DAY 90 Tablet 1 3 Active Tamsulosin HCl 0.4 MG Oral Capsule (Flomax)Indicatio ns:Urinary hesitancy Take 1 Capsule by mouth in the morning. 90 Capsule 1 3 Active metFORMIN HCl ER 500 MG Oral Tablet Extended Release 24 Hour (Glucophage XR)Indications:Ty pe 2 diabetes mellitus with hemoglobin A1c goal of less than 8.5% (HCC) TAKE 4 TABLETS BY MOUTH EVERY DAY WITH BREAKFAST 360 Tablet 1 3 Active Sertraline HCl 50 MG Oral Tablet (Zoloft)Indicatio ns:Adjustment disorder with depressed mood Take 1 Tablet by mouth in the morning. In the morning.. 90 Tablet 1 3 Active Atorvastatin Calcium 20 MG Oral Tablet (Lipitor)Indicati ons:Type 2 diabetes mellitus with hemoglobin A1c goal of less than 8.5% (HCC),Hyperlipide alfonso with target LDL less than 100 TAKE ONE TABLET BY MOUTH AT BEDTIME 90 Tablet 1 3 Active Omnipod 5 G6 Intro (Gen 5) Kit Use to administer insulin daily. Contains controller + 11 pods. 1 Kit 0 3 01/13/20 Active Omnipod 5 G6 Pod (Gen 5) Use a new pod every 72 hours to administer insulin (30 pods for 90 days) 6 Each 3 3 Active Omnipod DASH Pods (Gen 4) Apply an new pod every 3 days. 30 Each 3 3 12/13/19 Discontinu ed(Patient preference /discontin uation) documented as of this encounter (statuses as of 12/12/2022) Active Problems Problem Noted Date Type 1 [...] as of this encounter (statuses as of 12/12/2022) Resolved Problems Problem Noted Date Resolved Date Type 2 diabetes mellitus wit h hemoglobin A1c goal of less than 7.5% 11/29/2013 12/29/2014 Overview: ICD-10 update of inactive term HYPERTENSION NOS 04/05/2001 01/06/2014 Reflux esophagitis 02/11/2021 Type 2 diabetes mellitus wit h hemoglobin A1c goal of less than 7.0% 01/06/2014 Overview: ICD-10 update of inactive term documented as of this encounter (statuses as of 12/12/2022) Immunizations Name Administration Dates Next Due COVID-19 mRNA, LNP-s, No Pre serve, 2-Dose Series (Pfizer) 02/23/2021,06/06/2020,05/16/2020 Hepatitis B, 20+ yrs 07/16/2015,02/05/2015,01/08 Pneumococcal Conjugate Vacci ne, 20-valent ([id number]) 08/23/2021 Pneumococcal Polysaccharide PPV23 (Pneumovax) 01/06/2014 SEASONAL [...] as of this encounter Progress Notes * RIK Acuña 12/12/2022 7:58 AM EDT Chief Complaint: Follow up for Diabetes Mellitus Corey is a 52 year old male patient of Basim Slaughter MD here today for endocrine follow up. HPI Type: 1 diabetes (TABBY) diagnosed in his early 20s DM runs on both sides of family On pump therapy about 5 years (currently Omnipod Dash) and dexcom to gluing pressman (phone not compatiblewith dexcom G6 jeane) Gets pods from [facility] Omnipod Dash Insulin Pump Insulin Used: aspart Basal rates 0000 0.8 2100 1.0 ICR: 8 Sensitivity: 45 Target: 100-120 IOB: 4 Sensor: dexcom Site Change: q 3 days Site Problems: no Complications: Retinopathy: no Nephropathy: no albuminuria, nl gfr Neuropathy: + symptoms: feet throb and burn, x few months Gastroparesis: no Hypoglycemia unawareness: no, symptom threshold is 80 Comorbidities: CP--> nonambulatory HTN - lisinopril HLD - lipitor GERD - PPI Last visit in endocrinology: in office: Visit date not found, telemed: 06/08/2022 Pertinent/Interval history: No up-to-date glucose or Dexcom clarity data available today Eyes healthy recently, new glasses No recent foot exam Diabetes Health Maintenance Due: Health Maintenance Due Topic Date Due Diabetic Foot Exam 08/23/2022 Influenza Vaccine (FLU shot) (1) 10/28/2022 COVID-19 Vaccine ( season) 2022 Blood Glucose Monitoring: Medical need for glucose monitoring: Yes, using dexcom G6 Patient tested glucose > 4 times per day for the past 6 months HISTORY Social History Tobacco Use Smoking Status Never Smokeless Tobacco Never MEDICATIONS/ALLERGIES Current Outpatient Medications (Antidiabetic) Medication Sig Dispense Refill metFORMIN HCl ER 500 MG Oral Tablet Extended Release 24 Hour (Glucophage XR) TAKE 4 TABLETS BY MOUTH EVERY DAY WITH BREAKFAST 360 Tablet 1 Gvoke HypoPen 2-Pack 1 MG/0.2ML Subcutaneous Solution Auto-injector (Glucagon) Inject 1.0 mg under the skin of belly/thigh or upper arm as needed for unresponsiveness due to suspected hypoglycemia 0.4 mL 11 Insulin Glargine Solostar 100 UNIT/ML Subcutaneous Solution Pen-injector (Lantus SoloStar) FOR PUMPBACK UP: Injected under the skin, one time(s) per day:18 units. TDD: 20. ICD10: E11.9 15 mL 11 Insulin Aspart 100 UNIT/ML Injection Solution (NovoLOG) Use up to 90 units daily in insulin pump 90mL 3 Current Outpatient Medications (Other) Medication Sig Dispense Refill Omnipod 5 G6 Intro (Gen 5) Kit Use to administer insulin daily. Contains controller + 11 pods. 1 Kit 0 Omnipod 5 G6 Pod (Gen 5) Use a new pod every 72 hours to administer insulin (30 pods for 90 days) 6Each 3 Atorvastatin Calcium 20 MG Oral Tablet (Lipitor) TAKE ONE TABLET BY MOUTH AT BEDTIME 90 Tablet 1 Sertraline HCl 50 MG Oral Tablet (Zoloft) Take 1 Tablet by mouth in the morning. In the morning.. 90 Tablet 1 Tamsulosin HCl 0.4 MG Oral Capsule (Flomax) Take 1 Capsule by mouth in the morning. 90 Capsule 1 Lisinopril 20 MG Oral Tablet (Prinivil) TAKE ONE TABLET BY MOUTH EVERY DAY 90 Tablet 1 Pantoprazole Sodium 20 MG Oral Tablet Delayed Release (Protonix) TAKE ONE TABLET BY MOUTH EVERY MORNING 90 Tablet 1 BD Pen Needle Noemi U/F 32G X 4 MM (Insulin Pen Needle) Use four times daily w/ insulin 100 Each 11 Insulin Syringe-Needle U-100 31G X 5/16" 0.3 ML (B-D INSULIN SYRINGE ULTRAFINE) For pump back up: injecting insulin 4 times daily. E10.9 100 Each 5 Ketostix In Vitro Strip (Acetone (Urine) Test) Test urine for ketones every 2 hours if you experience nausea, vomiting and abdominal pain. 50 Strip 5 ONETOUCH LANCETS MIS Check finger stick 6 times daily 200 Each 5 Blood Glucose Monitoring Suppl (ONE TOUCH ULTRA 2) W/DEVICE KIT Use as directed to test blood sugar; dx 250.00 1 Each 0 D 1999 2000 UNITS PO TABS 1 TABLET DAILY 1999 Tab 5 Review of patient's allergies indicates: Allergen Reactions Sulfa Antibiotics Rash ROS Denies unless denoted with (+) blurry vision increased thirst weight change + stool problems (constipation), using metamucil gummies with daily BM + trouble urinating despite flomax Nocturia > 2x foot pain/tingling/numbness PHYSICAL EXAM There were no vitals taken for this visit. Wt Readings from Last 5 Encounters: 04/05/22 70 kg (154 lb 6 oz) 08/23/21 71.7 kg (158 lb) 04/30/21 75.6 kg (166 lb 9.6 oz) 02/11/21 73.2 kg (161 lb 6.4 oz) 10/08/20 67.2 kg (148 lb 4 oz) Gen: appears well, in NAD HEENT: no conjunctival injection, MMM Resp: normal respiratory pattern, no dyspnea with conversation CV: no cyanosis or edema Skin: no rash MSK: 4 extremities intact, ARANA Neuro: awake, alert, appropriate LABS Recent Labs Units 11/14/22 0810 01/28/22 1408 02/11/21 1609 HEMOGLOBIN A1C - [facility] % 8.4* 8.1* 8.5* Albumin / Creatinine Ratio, Urine (mg/g Creat) Date Value 11/14/2022 83 (H) 04/30/2021 <29 05/01/2020 20 Recent Labs Units 11/14/22 0810 01/28/22 1408 02/11/21 1609 CREATININE - [facility] mg/dL 0.6 0.6 0.7 ESTIMATED GLOMERULAR FILTRATION RATE - [facility] mL/min >90 >90 >90 Recent Labs Units 01/28/22 1408 AST - [facility] U/L 20 ALT - [facility] U/L 23 Recent Labs Units 11/14/22 0810 01/28/22 1408 CHOLESTEROL - [facility] mg/dL 178 146 LDL CHOLESTEROL (CALCULATED) - [facility] mg/dL 102 69 HDL CHOLESTEROL - [facility] mg/dL 62 56 TRIGLYCERIDES - [facility] mg/dL 72 106 Recent Labs Units 01/28/22 1408 TSH - [facility] uIU/mL 1.57 ASSESSMENT & PLAN This 52 year old male presents for f/u of type 1 diabetes mellitus using Dash with Dexcom CGM. Disease is not at goal and I think the patient would benefit from automated insulin delivery with Omnipod 5. He is agreeable. Have no data from his CGM or pump on which to base any adjustments in his pump settings today. ICD-10-CM 1. DM type 1, not at goal (HCC) E10.9 2. Insulin pump status Z96.41 3. Type 1 diabetes mellitus with hemoglobin A1c goal of less than 7.0% (HCC) E10.9 Plan: Switch from Dash to Omnipod 5, patient to open the starter kit and follow the instructions to initiate the training process Continue to follow with the [facility] pharmacist at his nearby [facility] Low-carbohydrate eating encouraged Quarterly A1c ordered along with LFTs and TSH with next blood draw Next visit will be: June 08, 2023 at 08:30 via video I spent a total of 21 minutes on the date of service in preparation, delivery, and documentation ofthe care provided to Corey Mabry excluding any time spent in the performance of separately billed services. Supervising physician was available in the office at the time of the encounter. Patient location: HOME. I was in a hospital or clinic location. After connecting through televideo,patient was verified with two unique identifiers. Patient (or authorized legal service representative) was then informed that this was a Telemedicine visit and being conducted confidentially over secure lines. Methods to assure confidentiality were taken. Patient acknowledged consent and understanding of pr ivacy and security of the Telemedicine visit. The patient agreed to participate. Brittaney Reaves PA-C [facility] Endocrinology documented in this encounter Plan of Treatment Upcoming Encounters Date Type Specialty Care Team Description 12/21/2022 Office Visit [address] [place] [address] 04/17/2023 Office Visit Family Medicine Blossom Gibson MD [address] [place] [address] [place] [address] 06/08/2023 Telemedicine Endocrinology Brittaney Reaves PA-C [address] [place] [facility] [address] Scheduled Orders Name Type Priority Associated Diagnoses Orde r Schedule TSH WITH FREE T4 IF INDICATED Lab Routine DM type 1, not at goal (HCC) Ordered: 12/12/2022 HEPATIC FUNCTION PANEL Lab Routine DM type 1, not at goal (HCC) Expected: 12/12/2022 (Approximate), Expires: 12/13/2023 HEMOGLOBIN A1C Lab Routine DM type 1, not at goal (HCC) Every 3 Months for 4 Occurrences starting 12/12/2022 until 12/13/2023 Health Maintenance Due Date Last Done Comments [...] Additional history exists Hepatitis B Completed 07/16/2015, 1 , 01/08/2015 Pneumococcal Vaccine: Pediatrics (0 to 5 [...] Diagnosis DM type 1, not at goal (HCC)- Primary Type I (juvenile type) diabetes mellitus without mention of complication, not stated as uncontrolled Insulin pump status Type 1 diabetes mellitus with hemoglobin A1c goal of less than 7.0% (HCC) documented in this encounter Care Teams Central Service Supply Distributor Relationship Specialty Start Date End Date Basim Slaughter MD [address] [place] [address] [place] [address] PCP - General Family Medicine 11/18/13 documented as of this encounter
--- OUTSIDE RECORDS SUMMARY | 2023-05-24 11:00 | External Medical Summary | Summary of Care ---
Author Name Unknown Organization [facility] Address [address] [facility] [address] Phone [phone] Care Team Providers Care Manager Trade Marketing Name Role Phone Basim Slaughter MD Primary Care Provider [phone] Reason for Visit * Reason Onset Date Comments Other 12/12/2022 Encounter Details Date Type Department Care Team Description 12/12/2022 Telephone Pharmacy, [address] [place] [address] [place] [address] Other Allergies Active Allergy Reactions Severity Noted Date [...] mRNA, LNP-s, No Pre serve, 2-Dose Series ([employer]) 02/23/2021,06/06/2020,05/16/2020 Hepatitis B, 20+ yrs 07/16/2015,02/05/2015,01/08 Pneumococcal Conjugate Vacci ne, 20-valent ([id number]) 08/23/2021 Pneumococcal Polysaccharide PPV23 (Pneumovax) 01/06/2014 SEASONAL [...] Telephone Encounter - Edna Gonzalez RPh - 12/12/2022 2:42 PM EDT Patient Phone Numbers Called and spoke with patient. Reports he is waiting on the OP5 starter kit. His significant other recently fell and injured herself. Usually the patient's ride. MTM appointment scheduled for 12/21. Instructed to contact clinic at the beginning of next week and will assess if reschedule is needed. Edna Gonzalez RPh, PharmD Clinical Pharmacist - Auto Brake Mechanic [facility] 12/12/2022, 2:43 PM [phone] * Telephone Encounter - FERNANDO Bowman - 12/12/2022 2:36 PM EDT Caller's name: Corey Preferred call back number(OFFICE NUMBER FOR HH): [phone] Reason for call: Pt calling again to speak to [facility] in regards to the appt he had today. Thank you, Samra [facility] ([facility]) (formerly Telepharmacy) 12/12/2022,2:36 PM * Telephone Encounter - DEEPAK Flannery - 12/12/2022 11:15 AM EDT Caller's name: Corey Preferred call back number(OFFICE NUMBER FOR ): [phone] Reason for call: Patient would like to speak with the [facility] about his appt from today with endocrinology. Please advise and return his call. Thank you, Digna [facility] 12/12/2022,11:15 AM documented in this encounter Plan of Treatment Upcoming Encounters Date Type Specialty Care Team Description 12/21/2022 Office Visit Pharmacy [address] [place] [address] 04/17/2023 Office Visit Family Medicine Blossom Gibson MD [address] [place] [address] [place] [address] 06/08/2023 Telemedicine Endocrinology Brittaney Reaves PA-C [address] [place] [address] Health Maintenance Due Date Last Done Comments [...] filedocumented as of this encounter Care Teams Manager Trade Marketing Relationship Specialty Start Date End Date Basim Slaughter MD [address] [place] [address] [place] [address] PCP - General Family Medicine 11/18/13 documented as of this encounter
--- OUTSIDE RECORDS SUMMARY | 2023-05-24 11:00 | External Medical Summary | Summary of Care ---
Author Name Unknown Organization [facility] Address [address] [facility] [address] Phone [phone] Care Team Providers Care Kiln Drawer Name Role Phone Basim Slaughter MD Primary Care Provider Reason for Visit * Reason Onset Date Comments Other 12/12/2022 Encounter Details Date Type Department Care Team Description 12/12/2022 Telephone Pharmacy, [address] [place] [address] [place] [address] Other Allergies Active Allergy Reactions Severity Noted [...] mRNA, LNP-s, No Pre serve, 2-Dose Series ([employer]) 02/23/2021,06/06/2020,05/16/2020 Hepatitis B, 20+ yrs 07/16/2015,02/05/2015,01/08 Pneumococcal Conjugate Vacci ne, 20-valent ([id number]) 08/23/2021 Pneumococcal Polysaccharide PPV23 (Pneumovax) 01/06/2014 SEASONAL [...] Edna Gonzalez RPh, PharmD Clinical Pharmacist - Assembly Cleaner [facility] 12/12/2022, 2:43 PM [phone] * Telephone Encounter - FERNANDO Bowman - 12/12/2022 2:36 PM EDT Caller's name: Corey Preferred call back number(OFFICE NUMBER FOR HH): [phone] Reason for call: Pt calling again to speak to [facility] in regards to the appt he had today. Thank you, Samra Moya [facility] ([facility]) (formerly Telepharmacy) 12/12/2022,2:36 PM * Telephone Encounter - DEEPAK Flannery - 12/12/2022 11:15 AM EDT Caller's name: Corey Preferred call back number(OFFICE NUMBER FOR ): [phone] Reason for call: Patient would like to speak with the [facility] about his appt from today with endocrinology. Please advise and return his call. Thank you, Digna Bella [facility] 12/12/2022,11:15 AM documented in this encounter Plan of Treatment Upcoming Encounters Date Type Specialty Care Team Description 12/21/2022 Office Visit Pharmacy [address] [place] [address] 04/17/2023 Office Visit Family Medicine Blossom Gibson MD [address] [place] [address] [place] [address] 06/08/2023 Telemedicine Endocrinology Brittaney Reaves PA-C [address] [place] [address] Health Maintenance Due Date Last Done Comments [...] filedocumented as of this encounter Care Teams Kiln Drawer Relationship Specialty Start Date End Date Basim Slaughter MD [address] [place] [address] [place] [address] PCP - General Family Medicine 11/18/13 documented as of this encounter
[2023-05-24] MEDS: INSULIN ASPART PER UNIT CHARGE SC SCH (13:04)
--- NOTE | 2023-05-24 14:11 | Hospitalist Progress Note ---
Date of Service May 24, 2023 Assessment & Plan (1) Left renal mass: (2) Anemia: (3) HTN (hypertension): (4) Hyperlipidemia: (5) Type I diabetes mellitus: (6) Spastic diplegic cerebral palsy: (7) Adjustment disorder with depressed mood: Plan Mr. Mabry is a 53 year old gentleman with history of cerebral palsy, mood d/o, HTN, HLD who was admitted on 05/22 for left flank pain. Patient with 2 week history of left flank pain prior to arrival, as well as gross hematuria. #Constipation Still with flatus, denies n/v -Aggressive bowel regimen #Left renal mass, c/f malignancy #Closed hematoma of left kidney Acute, likely the cause of his flank pain, anemia, and gross hematuria. Concern for RCC v TCC Urology note reviewed from 05/23: plan for future reimaging with follow up with urology to discuss surgical intervention -Recommends continued admission to monitor for bleed/hemodynamic changes -Follow up urine cytology sent 05/23 #Acute on chronic normocytic Anemia: #Gross hematuria Per outpatient records, H/H was 13.4/42.6 in Feb 2023. Now 11.5/35.6 likely related to new onset malignancy. Gross hematuria noted. Cont to trend CBC. No transfusion needed at this time. Urology following #HTN (hypertension): chronic, at goal. Cont home losartan per regimen. #Hyperlipidemia: chronic, stable. Cont atorvastatin per home regimen. #Type I diabetes mellitus: chronic, uncontrolled. Hold metformin and insulin pump while inpatient. Glycemic pharmacist consulted to help with management of this and transition back to insulin pump closer to discharge. #Spastic diplegic cerebral palsy: per history, ambulates with forearm crutches at baseline. #Adjustment disorder with depressed mood: chronic, stable. Pt is upset with recent diagnosis which is normal bereavement. Cont sertraline per home regimen. DVT proph: SCDs/ambulation. Chemoprophylaxis held 2/2 hematuria and worsening anemia, however, this should be reconsidered if H/H is stable given his elevated risk of DVT. Full Code Dispo- med tele Admission and Anticipated Discharge Date Admission Date: May 23, 2023 Subjective NAEO Reports feeling overall well this morning outside of emotions lingering about kidney--however, patient verbalizes with high degree of motivation goals for diabetes control and close follow up Denies NV chest pain but endorses some abdominal pain and constipation Reports flatus ongoing Physical Exam Constitutional: WD/WN, vitals as above Respiratory: normal respiratory effort, lungs clear to auscultation Chest (Breasts): normal inspection/palpation of breasts Gastrointestinal (Abdomen): protuberant, full LLQ, firm, mild tenderness to palpation Results & Data Results & Data Vital Signs (Past 12 Hours) Vital Signs Temp Pulse Pulse Resp BP Pulse Ox O2 Del Method 05/24/23 11:22 36.5 C 96 H 20 165/104 H 95 Room Air 05/24/23 07:50 36.6 C 105 H 20 164/97 H 98 Room Air 05/24/23 07:30 Room Air 05/24/23 07:00 89 05/24/23 03:55 36.7 C 94 H 16 153/91 H 98 Room Air Laboratory Results Short CBC 05/24/23 Range/Units 06:17 WBC 11.95 H (4.8-10.8) K/ul Hgb 11.4 L (14.0-18.0) g/dl Hct 35.9 L (42.0-52.0) % Plt Count 500 H (130-400) K/uL BMP 05/24/23 06:17 Sodium 135 L Potassium 3.9 Chloride 100 Carbon Dioxide 28 BUN 21 Creatinine 0.98 Glucose 210 H Calcium 9.0 Medications Administered Home Medications Medication Instructions Recorded Confirmed Last Taken atorvastatin 20 mg tablet 20 mg PO HS 05/23/23 05/23/23 05/22/23 insulin aspart U-100 100 unit/mL See Rx Instructions .Route .COMPLEX 05/23/23 05/23/23 05/22/23 subcutaneous solution (Novolog U-100 Insulin aspart) losartan 50 mg tablet 50 mg PO QAM 05/23/23 05/23/23 05/22/23 metformin 500 mg tablet,extended 2,000 mg PO QAM 05/23/23 05/23/23 05/22/23 release 24 hr pantoprazole 20 mg tablet,delayed 20 mg PO QAM 05/23/23 05/23/23 05/22/23 release sertraline 50 mg tablet 50 mg PO QAM 05/23/23 05/23/23 05/22/23 tamsulosin 0.4 mg capsule 0.4 mg PO QAM 05/23/23 05/23/23 05/22/23 Active Medications Generic Name Dose Route Start Last Admin Trade Name Freq PRN Reason Stop Dose Admin Acetaminophen 1,000 mg 05/23/23 16:00 05/24/23 07:30 Acetaminophen 500 Mg Tab PO 06/22/23 15:59 1,000 mg Q8H REGAN Administration Insulin Aspart 0 units 05/24/23 12:30 05/24/23 13:04 Insulin Aspart Per Unit Charge SC 06/23/23 12:29 12 units ACHS REGAN Administration Protocol Insulin Glargine 20 units 05/24/23 07:30 05/24/23 09:00 Lantus Per Unit Charge SC 06/23/23 07:29 20 units DAILY REGAN Administration Protocol Morphine Sulfate 2 mg 05/23/23 15:44 05/24/23 13:04 Morphine Sulfate 2 Mg/Ml Carp IV 06/06/23 15:43 2 mg Q4H PRN Administration Severe Pain (Scale 7, 8, 9,10) Polyethylene Glycol 17 gm 05/23/23 17:31 05/24/23 07:36 Polyethylene (Miralax) 17 Gm Pack PO 06/22/23 17:30 17 gm DAILY PRN Administration Constipation Polyethylene Glycol 17 gm 05/24/23 09:00 05/24/23 09:02 Polyethylene (Miralax) 17 Gm Pack PO 06/23/23 08:59 Not Given DAILY REGAN Senna/Docusate Sodium 1 tab 05/24/23 09:00 05/24/23 09:00 Docusate Sodium/Senna 50/8.6mg Tab PO 06/23/23 08:59 1 tab QAM REGAN Administration
[2023-05-24] MEDS: bisacodyL 10 MG SUPP PR STA (14:35)
[2023-05-24] MEDS: LOSARTAN POTASSIUM 50 MG TAB PO SCH (15:02)
[2023-05-24] MEDS: SERTRALINE HCL 50 MG TABLET PO SCH (15:02)
[2023-05-24] MEDS: PANTOprazole 40 MG TAB PO SCH (15:03)
[2023-05-24] MEDS: ATORVASTATIN 20 MG TAB PO SCH (21:45)
[2023-05-25 06:29] LABS: BUN Creatinine Ratio 20.4 (10-20); Calcium 8.4 mg/dl (8.6-10.3); Creatinine Clr Calc Pharmacy 71.5 ml/min; Est GFR (Non-African American) 83.7 ml/min; Phosphorus 2.4 mg/dl (2.5-4.9); Potassium 3.6 mmol/L (3.5-5.1)
[2023-05-25 06:42] LABS: Hematocrit (blood only) 32.9 % (42.0-52.0); Mean Corpuscular Hemoglobin 27.9 pg (25.0-34.0); Mean Corpuscular Hgb Conc 33.4 g/dL (32.0-36.0); Mean Corpuscular Volume 83.5 fL (80.0-100.0); Mean Platelet Volume 9.5 fL (9.4-12.4); Platelet Count 497 K/uL (130-400); RDW Coefficient of Variation 14.3 % (11.5-14.5); RDW Standard Deviation 43.5 fL (36.4-46.3); Red Blood Count 3.94 M/uL (4.70-6.10); White Blood Count 11.39 K/ul (4.8-10.8)
[2023-05-25] MEDS: TAMSULOSIN HCL 0.4 MG CAP PO SCH (07:53)
[2023-05-25] MEDS: POT PHOSPHATE MONOBASIC W/ SOD TAB PO SCH (07:54)
--- NOTE | 2023-05-25 08:09 | Urology Progress Note ---
Date of Service May 25, 2023 Assessment & Plan (1) Closed hematoma of left kidney: (2) Left renal mass: Plan: Follow-up of a 6 cm left renal mass with a spontaneous bleed Currently hemodynamically stable Labs reviewed -creatinine 1.03, WBC 11.39, hemoglobin stable at 11.0 Urine cytology is pending He has remained stable over the past 24 hours and pain appears to be adequately controlled Patient can be discharged to home from standpoint when medically stable We will plan to repeat dedicated imaging after resolution of his acute episode He will likely require surgical intervention for his renal mass Plan for short-term outpatient follow-up to discuss long-term management If he became hemodynamically unstable, then he would warrant transfer for consideration of embolization with intervention radiology will follow, please contact our service with any questions/changes in status Admission and Anticipated Discharge Date Admission Date: May 23, 2023 Subjective Patient seen and examined at bedside this morning No acute issues overnight Reports left flank discomfort, adequately controlled with current regimen Voiding without difficulty, no hematuria He has been ambulating in the hallway Reports some nausea, no vomiting Denies fever/chills Review of Systems 2 Constitutional: as per Subjective / HPI Gastrointestinal: as per Subjective / HPI Genitourinary: + as per Subjective / HPI Physical Exam Constitutional: no acute distress Respiratory: normal respiratory effort; no respiratory distress and no labored breathing Gastrointestinal (Abdomen): abd nontender to palpation, no guarding Musculoskeletal: Head/Neck/Chest: normocephalic Neurologic: moves all extremities and awake Psychiatric: Orientation: alert and oriented x 3 Genitourinary: Mild tenderness to percussion on left flank Results & Data Vital Signs (Past 12 Hours) Vital Signs Temp Pulse Pulse Resp BP BP Pulse Ox 05/25/23 05:58 91 H 05/25/23 04:00 36.8 C 97 H 18 156/95 H 96 05/25/23 00:13 37.0 C 103 H 18 154/89 H 94 05/24/23 23:00 107 H O2 Del Method 05/25/23 05:58 05/25/23 04:00 Room Air 05/25/23 00:13 Room Air 05/24/23 23:00 PG Care Time/CCT Total # of Minutes Spent Total Time Spent with Patient: Total time spent is greater than 50% in coordination of care (as documented) at patient's floor/unit and/or counseling patient: Coding Level of Care Code 58344 SUB INP/OBS CARE 03/23MIN Diagnoses Closed hematoma of left kidney S37.012A Left renal mass N28.89
[2023-05-25] MEDS: LANTUS PER UNIT CHARGE SC SCH (08:43)
--- NOTE | 2023-05-25 10:12 | Discharge Summary ---
Discharge Summary Date of Service May 25, 2023 Notes For Next Care Provider Patient with gross hematuria, left renal hematoma, and 6 cm renal mass--follow up with urology for surgical planning and reimaging Medication Changes From Visit Tamsulosin 0.4mg daily increased to 0.8mg daily for LUTS Oxycodone 5mg q8h for severe pain, 21 tabs Admission HPI Per Admitting Provider 53 yo M presents for left flank pain. Saw his PCP for left flank pain two weeks ago. Blood noted in urine yesterday and then acute flank pain this morning that was sharp and radiating into his anterior abdomen. Denies fevers, chills, SOB, chest pain. Workup in the ER reveals a new 6.6cm enhancing mass in the left kidney with acute subcapsular hemorrhage. Renal cell carcinoma vs transitional cell carcinoma are considered in the differential diagnosis. This appears to invade the renal collecting system, and there is hyperdense material at the ureteropelvic junction which could represent tumor or blood clots. There is evidence of left renal vein invasion. No evidence of distant mets is seen in the a/p. Some nausea today, some loose stool that was brown. Admission Exam Per Admitting Provider CONSTITUTIONAL: WNWD, vitals as above, generally well-appearing, NAD EYES: normal conjunctivae, no scleral icterus ENT: external ear and nose normal, MMM NECK: trachea midline RESPIRATORY: clear to auscultation bilaterally, no crackles, rales or wheezes, normal respiratory effort CARDIOVASCULAR: regular rate and rhythm, S1 and 2 heard without murmurs, gallops or rubs, no JVD, no peripheral edema CHEST: inspection of chest was normal GASTROINTESTINAL: soft, NTND, no guarding, no CVA tenderness MUSCULOSKELETAL: strength 5/5 throughout, head is normocephalic and atraumatic SKIN: warm and dry NEUROLOGIC: CN 2-12 grossly intact, no sensory deficit, normal cognition, normal speech, no tremor PSYCHIATRIC: alert cooperative and oriented to person, place and time. Euthymic mood, makes good eye contact, language grossly intact, recent and remote memory grossly intact Principal Dx & Hospital Course #1 = Principal Diagnosis (1) Left renal mass: (2) Anemia: (3) HTN (hypertension): (4) Hyperlipidemia: (5) Type I diabetes mellitus: (6) Spastic diplegic cerebral palsy: (7) Adjustment disorder with depressed mood: Plan Mr. Mabry is a 53 year old gentleman with history of cerebral palsy, mood d/o, HTN, HLD who was admitted on 05/22 for left flank pain. Patient with 2 week history of left flank pain prior to arrival, as well as gross hematuria. Patient's admission fairly unremarkable--labs remained stable with no large fluctuation in hemoglobin, well controlled pain, and stable renal function. Urology evaluated patient with plans for OP follow up, with discussion of likely surgical intervention. Urine cytology pending at this time. #Constipation Still with flatus, denies n/v -Aggressive bowel regimen---bowel movement on 05/23 #Left renal mass, c/f malignancy #Closed hematoma of left kidney Acute, likely the cause of his flank pain, anemia, and gross hematuria. Concern for RCC v TCC Urology note reviewed from 05/24: plan for future reimaging with follow up with urology to discuss surgical intervention -Labs stable -Follow up urine cytology sent 05/23 -Oxycodone 5mg prescribed given persistent left flank discomfort #Acute on chronic normocytic Anemia *stable #Gross hematuria Per outpatient records, H/H was 13.4/42.6 in Feb 2023. Now 11.5/35.6 likely related to new onset malignancy. Gross hematuria noted. Urology following--OP follow up #HTN (hypertension): chronic, at goal. Cont home losartan per regimen. #Hyperlipidemia: chronic, stable. Cont atorvastatin per home regimen. #Type I diabetes mellitus: chronic, uncontrolled. Resume home regimen #Spastic diplegic cerebral palsy: per history, ambulates with forearm crutches at baseline. #Adjustment disorder with depressed mood: chronic, stable. Pt is upset with recent diagnosis which is normal bereavement. Cont sertraline per home regimen. On day of discharge, all questions were answered. Patient states pain controlled with oral regimen. Patient ambulating with crutches at baseline. Patient passing flatus and BM without issue. Discharge Exam Constitutional WD/WN, vitals as above Respiratory normal respiratory effort, lungs clear to auscultation Cardiovascular RRR, no murmur, no edema Gastrointestinal (Abdomen) slight protuberance, but softer than day prior and no tenderness on exam Updated Medication List Medication Instructions Recorded Confirmed Type atorvastatin 20 mg tablet 20 mg PO HS 05/23/23 05/23/23 History insulin aspart U-100 100 unit/mL See Rx Instructions .Route .COMPLEX 05/23/23 05/23/23 History subcutaneous solution (Novolog U-100 Insulin aspart) losartan 50 mg tablet 50 mg PO QAM 05/23/23 05/23/23 History metformin 500 mg tablet,extended 2,000 mg PO QAM 05/23/23 05/23/23 History release 24 hr pantoprazole 20 mg tablet,delayed 20 mg PO QAM 05/23/23 05/23/23 History release sertraline 50 mg tablet 50 mg PO QAM 05/23/23 05/23/23 History oxycodone 5 mg tablet 5 mg PO Q8H PRN pain #21 tabs 05/25/23 Rx tamsulosin 0.4 mg capsule 0.8 mg (2 x 0.4 mg) PO QAM #60 caps 05/25/23 05/23/23 Rx Hospital Stay Data Consultations 05/23/23 14:02 ED Decision to Admit Stat 05/23/23 17:31 Consult Urology Routine Diagnostic Imagining Performed 05/23/23 10:01 CT abd pelvis IV con only Stat Pending Results Patient Have Any Pending Studies at Discharge: No Discharge Instructions Given to Patient (Per Discharging Provider) You were admitted for left flank pain and found to have a large mass on your kidney approximately 6.6 cm. Your labs and kidney function are stable. You were evaluated by Urology. You will need to follow up with Urology in the coming weeks to discuss cytology from your urine as well as repeat imaging. This will also include discussion of possible surgery to remove mass. Your medication for BPH was increased from 0.4mg to 0.8 mg. Please ensure you take your time standing to ensure you do not feel lightheaded or dizzy as this medication can cause blood pressure to be liable when changing positions. You will be sent home with a 7 day supply of pain medication for severe pain. -Oxycodone 5mg, take 1 tablet every 6-8 hours as needed for severe pain. Please use Tylenol 650mg every 4-6 hours as needed otherwise for mild-moderate pain. Please ensure bowel regimen at home to keep bowels moving every 1-2 days while on pain medications like Oxycodone. Total Time Total Time Spent Total Time Spent (In Minutes): 45
== END 2023-05-25 17:14 | disposition home or self-care (01) | DRG 687 ==
LOC: ED 09:56 → SUATTDRO 13:51 → 2N 13:51
DX: G80.1 Spastic diplegic cerebral palsy; Z88.2 Allergy status to sulfonamides; Z79.84 Long term (current) use of oral hypoglycemic drugs; C64.2 Malignant neoplasm of left kidney, except renal pelvis; N40.0 Benign prostatic hyperplasia without lower urinary tract symptoms; E78.5 Hyperlipidemia, unspecified; N28.89 Other specified disorders of kidney and ureter; Z96.41 Presence of insulin pump (external) (internal); K59.00 Constipation, unspecified; I10 Essential (primary) hypertension; E10.9 Type 1 diabetes mellitus without complications; F43.21 Adjustment disorder with depressed mood; R31.0 Gross hematuria; D64.9 Anemia, unspecified

== ENCOUNTER 2023-07-04 05:53 | Inpatient (IN) ==
--- NOTE | 2023-06-21 11:35 | Anesthesiology Consultation ---
Date of Service June 21, 2023 Assessment & Plan (1) Encounter for pre-operative examination: Plan - check BSG am DOS. - ER 05/27/23 [facility]: "...gross hematuria with clots in the setting of being admitted at this facility from 05/22-05/24 for similar symptoms where he had CT imaging that demonstrated a left renal mass and contained subcapsular hematoma...well-appearing in no distress, afebrile heart in the 110s and blood pressure 160s/100s and vital signs otherwise stable. He appears clinically dry. Abdomen is benign. Postvoid bladder scan demonstrated no urinary retention. WBC 11.7, nonspecific. H/H 10.5/31.4 slightly decreased from discharge values with only minimal drift which may be related to component of phlebotomy as well as dilution. Platelets 510, nonspecific likely reactive. Chemistry without metabolic acidosis. Electrolytes and LFTs unremarkable. Lipase not elevated. UA with only 5-10 RBCs and otherwise no evidence of infection. Given the patient's reassuring exam and testing unlikely emergent process at this time. Given no acute flank pain or abdominal pain no indication for repeat CT imaging at this time. Plan for outpatient follow-up with his PCP and urology as scheduled..." - discharge summary 05/25/23 [facility]: "...cerebral palsy, mood d/o, HTN, HLD who was admitted on 05/22 for left flank pain...gross hematuria...Urology evaluated patient with plans for OP follow up, with discussion of likely surgical intervention. Urine cytology pending at this time...Left renal mass, c/f malignancy. Closed hematoma of left kidney Acute, likely the cause of his flank pain, anemia, and gross hematuria. Concern for RCC v TCC. Urology note reviewed from 05/24: plan for future reimaging with follow up with urology to discuss surgical intervention...Type I diabetes mellitus: chronic, uncontrolled..." - Per sales operations analyst on 06/21/23: No known infectious disease contacts, current infectious disease symptoms in past 10 days or COVID positive test result in the past 30 days. Chart Review Chart Review: Acceptable Risk for Surgery and Patient NOT seen in Pre Admission Testing History Surgery Operation Date: 07/04/23 10:10 Proposed Procedures p Left Robotic Nephro-Ureterectomy (Removal of the Kidney and Ureter) - Magnus Joaquin MD Height/Weight Height: 5 ft 2 in Weight: 71.668 kg Allergies Allergy/AdvReac Type Severity Reaction Status Date / Time Sulfa (Sulfonamide Allergy Severe HIVES AND Verified 06/21/23 10:46 Antibiotics) RASH Medications Home Medications Medication Instructions Recorded Confirmed Last Taken atorvastatin 20 mg tablet 20 mg PO HS 05/23/23 06/21/23 05/22/23 insulin aspart U-100 100 unit/mL See Rx Instructions .Route .COMPLEX 05/23/23 06/21/23 05/22/23 subcutaneous solution (Novolog U-100 Insulin aspart) losartan 50 mg tablet 50 mg PO QAM 05/23/23 06/21/23 05/22/23 metformin 500 mg tablet,extended 2,000 mg PO QAM 05/23/23 06/21/23 05/22/23 release 24 hr pantoprazole 20 mg tablet,delayed 20 mg PO QAM 05/23/23 06/21/23 05/22/23 release sertraline 50 mg tablet 50 mg PO QAM 05/23/23 06/21/23 05/22/23 oxycodone 5 mg tablet 5 mg PO Q8H PRN pain #21 tabs 05/25/23 06/21/23 Unknown tamsulosin 0.4 mg capsule 0.8 mg (2 x 0.4 mg) PO QAM #60 caps 05/25/23 06/21/23 05/22/23 psyllium husk 0.4 gram capsule 1.2 g PO QAM 06/21/23 06/21/23 Unknown (Metamucil) Past Medical History Medical History Adjustment disorder with depressed mood Anemia Anxiety Chronic back pain History of COVID-2021--mild symptoms, no symptoms now HTN (hypertension) Hyperlipidemia Idiopathic scoliosis Insulin pump status Left renal mass Spastic diplegic cerebral palsy wheelchair use Type I diabetes mellitus insulin pump Past Family History Family History Grandmother (Paternal) Cancer Other No family history of adverse response to anesthesia Past Surgical History Surgical History History of surgery on lower extremity x3 on each bilateral leg History of tooth extraction Social History Smoking Status: Never smoker Do You Dip or Chew Tobacco: No Hx Alcohol Use: Yes Alcohol type: beer alcohol intake frequency: holidays/special occasions only Hx Substance Use: No substance use type: does not use Lab Results Anesthesia Preop Results Results Anesthesia Widget: WBC 10.50 K/ul (4.8-10.8) 06/19/23 Hgb 11.3 g/dl (14.0-18.0) L 06/19/23 Hct 35.2 % (42.0-52.0) L 06/19/23 Plt 726 K/uL (130-400) H 06/19/23 Na 135 mmol/L (136-145) L 06/19/23 K 3.8 mmol/L (3.5-5.1) 06/19/23 Cl 100 mmol/L (98-107) 06/19/23 CO2 26 mmol/L (21-32) 06/19/23 BUN 12 mg/dl (6-23) 06/19/23 Creat 0.84 mg/dl (0.6-1.4) 06/19/23 Glucose Level 154 mg/dl (70-99(Fasting)) H 06/19/23 POC Glucose 160 mg/dl (70-99) H 05/25/23 PT 10.3 Seconds (9.0-12.0) 05/27/23 INR 0.9 (0.9-1.1) 05/27/23 HA1c 7.6 % (4.5-5.6) H 05/24/23 Urine Color Yellow 05/27/23 Urine Appearance Clear (Clear) 05/27/23 Urine pH 6.5 (4.5-7.5) 05/27/23 Urine Specific Golf 1.005 (1.000-1.030) 05/27/23 Urine Protein Negative (Negative) 05/27/23 Urine Glucose (UA) Negative (Negative) 05/27/23 Urine Ketones Negative (Negative) 05/27/23 Urine Blood 3+ (Negative) H 05/27/23 Urine Nitrite Negative (Negative) 05/27/23 Urine Bilirubin Negative (Negative) 05/27/23 Urine Urobilinogen Negative (Negative) 05/27/23 Urine Leukocyte Esterase Negative (Negative) 05/27/23 Urine WBC (Auto) 10-30 /hpf (0-5) H 05/23/23 Urine RBC (Auto) 10-30 /hpf (0-4) H 05/23/23 Urine Hyaline Casts (Auto) 1-5 /lpf (0-5) 05/23/23 Urine Epithelial Cells (Auto) 20-30 /lpf (0-5) H 05/23/23 Urine Bacteria (Auto) Negative (Negative) 05/23/23 Testing Electrocardiogram Date: 06/19/23 Sinus tachycardia, rate 113 bpm Chest X-Ray Date: 06/19/23 No acute process. Other Testing Abdomen pelvis CT 06/14/23 1. Expected evolution of the subacute left renal subcapsular hematoma, unchanged in size since CT of May 23, 2023. This hematoma is due to an underlying 6.6 cm enhancing left renal mass. This is consistent with a neoplasm and could reflect renal cell carcinoma or transitional cell carcinoma. Venous invasion and extension into the left collecting system and proximal left ureter. 2. Several prominent left paraaortic lymph nodes. Kalpesh spread of disease cannot be excluded. 3. No distant metastatic disease within the abdomen or pelvis.
[2023-07-04] MEDS: LACTATED RINGER'S 1,000 ML IV SCH (06:30)
[2023-07-04] MEDS ORDERED: HYDROmorphone INJ 2 MG/ML SYR/VIAL IV PRN (07:02)
[2023-07-04] MEDS ORDERED: ONDANSETRON INJ 2 MG/ML 2 ML VIAL IV PRN ×2 (07:02→10:59)
[2023-07-04] MEDS ORDERED: ATROPINE SULFATE 0.1 MG/ML 10ML SYR IV PRN (07:02)
[2023-07-04] MEDS ORDERED: ePHEDrine sulfate 50 MG/ML AMP IV PRN (07:02)
[2023-07-04] MEDS ORDERED: fentaNYL citrate PF 100 MCG/2 ML VIAL IV PRN (07:02)
[2023-07-04] MEDS ORDERED: PROMETHAZINE HCL 6.25 MG in SODIUM CHLORIDE 0.9% 50 ML IV PRN (07:02)
[2023-07-04] MEDS ORDERED: MIDAZOLAM HCL 1 MG/ML 2ML VIAL ONE (07:13)
[2023-07-04] MEDS ORDERED: fentaNYL citrate PF 100 MCG/2 ML VIAL ONE (07:14)
--- NOTE | 2023-07-04 07:28 | History & Physical Bridge Note ---
Date of Service July 04, 2023 History & Physical Bridge Note I have examined the patient, reviewed the History & Physical and in the interval since the performance of the History & Physical I have noted the following changes of clinical significance: no changes noted
[2023-07-04] MEDS: ceFAZolin 2000MG 2,000 MG/15 ML SYR IV SCH ×2 (08:00→16:36)
[2023-07-04] MEDS ORDERED: HYDROmorphone INJ 2 MG/ML SYR/VIAL ONE (08:27)
[2023-07-04] MEDS ORDERED: ONDANSETRON INJ 2 MG/ML 2 ML VIAL ONE (09:33)
[2023-07-04] MEDS ORDERED: DEXAMETHASONE SOD INJ 4 MG/ML VIAL ONE (09:33)
[2023-07-04] MEDS ORDERED: KETOROLAC 30 MG/ML VIAL ONE (09:33)
[2023-07-04] MEDS ORDERED: PROPOFOL IV EMULSION 10 MG/ML 20 ML VIAL IV ONE (09:33)
[2023-07-04] MEDS ORDERED: ROCURONIUM BROMIDE 10 MG/ML 5 ML VIAL IV ONE (09:33)
[2023-07-04] MEDS ORDERED: LIDOCAINE 2% 2 ML VIAL/AMP(20MG/ML) INFIL ONE (09:33)
[2023-07-04] MEDS ORDERED: SUGAMMADEX SODIUM 200 MG/2 ML VIAL IV ONE (09:39)
[2023-07-04] MEDS: BUPIVACAINE 0.5 % 5 MG/1 ML MPF 30ML VIAL ONE (09:41)
--- NOTE | 2023-07-04 10:27 | Operative Report ---
PG Post Operative Report Pre & Post Diagnosis Operation Date: 07/04/23 07:30 Pre-Op Diagnosis: Left Renal Mass, Closed Hematoma of Left Kidney Post-Op Diagnosis: Left Renal Mass, Closed Hematoma of Left Kidney I identified the patient and participated in the time-out.: Yes Procedure Operation Date: 07/04/23 07:30 Actual Procedures p Robotic Assisted Left Nephrectomy(Left) - Magnus Joaquin MD Surgeon Magnus Joaquin MD [employer] Chain Development Manager Stephanie Stark Estimated Blood Loss 50 Findings Consistent with Post-Op Diagnosis Specimens Left kidney and majority of left ureter Description of Procedure Patient was identified in the preoperative holding area and appropriate informed consents reviewed and completed. Transported to the operating suite received appropriate preoperative antibiotics in the form of Ancef. Following induction of general anesthesia he was placed in a [id number] left side up lateral decubitus position with the bed flexed. He was padded and placed appropriately. Following sterile prep and drape I passed a Veress needle into the left upper quadrant and insufflated his abdomen to 15 mmHg. I then marked tentative port sites including 2 butcher assistant ports in the midlineboth planned 12 mm ports. One was just infraumbilical and the other was approximately 8 cm above the umbilicus. I then marked for tentative robotic port sites down the lateral aspect of the rectus. The first was approximately 3 fingerbreadths below the costal margin and each subsequent port was approximately 6 to 8 cm inferior to the port above it. I began with a third port from the top and the robotic area and entered with a Visiport and 5 mm lens. Inspection revealed the midline in the left lateral abdominal wall to be free of any significant adhesions. I subsequently proceeded to place all ports where they were previously marked. We then docked the robot. To begin the robotic portion of the case I began by incising the white line of Toldt lateral to the kidney and freeing some of the spleenorenal attachments. After medializing the colon entirely I was able to work below the kidney and dissect until I identified the gonadal vein. I then utilized the gonadal vein to cautiously work my way towards the hilum. Before reaching the hilum, I dissected medial to the gonadal vein and ureter and onto the psoas muscle and used a fourth arm of the robot to elevate the inferior pole of the kidney. Again before diving directly into the space around the hilar structures I c ontinued to mobilize the upper aspect of the kidney. I dissected between the spleen, pancreas and kidney. I traced the edge of Gerota's fascia down until I reached the adrenal. I then continued mobilizing the colon medially until it was clear of that space. I then returned to the inferior aspect of the kidney and continue to traced the gonadal vein towards the hilar structures. Carefully dissecting along the anterior aspect of the gonadal vein I ran into the junction with the renal vein and anticipated location. I was able to dissect circumferentially around the renal vein and identify the main adrenal vein. Dissecting posterior to the kidney I was able to free all lymphatic attachments as well as some of the fat in this area until I could identify the renal artery. The renal artery and vein were both single in nature and immediately superimposed upon each other from my viewpoint and the angle of the butcher assistant ports. This configuration allowed control of both vascular structures with a solitary staple load. Utilizing a 60 mm vascular load I was able to fire across the full hilum and a single load with excellent hemostasis and separation. I then carefully continued dissecting posteriorly towards the extreme upper lateral corner of the kidney. I left the adrenal attachments and then gradually work my way back to them and utilizing a combination of bipolar and monopolar electrocautery I was able to dissect between the adrenal gland and the kidney itself. Ultimately was able to free the entire upper aspect of the kidney before turning my attention to the lateral and inferior aspects of the kidney. I dissected around the outer aspect of Gerota's fascia laterally until I met up with the dissection that it occurred behind and posterior to the kidney. Ultimately this left only the inferior attachments remaining. The gonadal vein was relatively plump so after dissecting this down until we reached the iliac vessels, I fired a Weck clip across the gonadal vein inferiorly and superiorly and divided it between the 2. I then dissected the ureter slightly further, down over the iliac vessels before controlling it with a Weck clip distally and incising above it. Of note, I did consider performing a full nephro ureterectomy given the appearance of the mass in the kidney, however my overall suspicion is relatively strongly that this is more likely renal cell carcinoma than transitional cell carcinoma, so I ultimately elected not to proceed with a full nephro ureterectomy. If necessary, the clip should randall the proximal extent of the ureter and should be able to be identified immediately above the iliac vessels. At that time the kidney was freed entirely. Hemostasis was excellent, there was essentially 0 blood loss throughout the case. I turned my attention to extraction. I made a lower midline incision extending from the infraumbilical port down towards the pubic symphysis and carefully divided between the rectus bellies. After entering into the peritoneum I was able to extend the hand up into the left upper quadrant and grasped the freed specimen. I was able to manipulate it out through this incision. I confirmed excellent hemostasis. Of note, prior to extraction and opening of the fascia I did closed the upper midline butcher assistant port utilizing a Reg-Ramos device and a 0 PDS suture. After extracting the specimen I reapproximated the fascia with a running 0 PDS. The muscle layer and all skin incisions were infiltrated with half percent Marcaine. All skin incisions were then closed with 4-0 Monocryl, the main extraction site was closed in 2 layers with 0 Vicryl to reapproximate the subcutaneous tissue prior to the 4-0 Monocryl. Dermabond was placed over all the incisions. He was reversed of anesthesia and taken to the recovery room in stable condition. There were no complications. Stephanie Stark assisted from incision to closure I attest to the content of the Intraoperative Record and any orders documented therein. Any exceptions are noted below.
[2023-07-04 10:59] LABS: Anion Gap 10 (3-11); BUN Creatinine Ratio 18.1 (10-20); Blood Urea Nitrogen 17 mg/dl (6-23); Calcium 8.8 mg/dl (8.6-10.3); Carbon Dioxide 22 mmol/L (21-32); Chloride 105 mmol/L (98-107); Creatinine Clr Calc Pharmacy 71.8 ml/min; Est GFR (African American) 108.4 ml/min; Est GFR (Non-African American) 93.5 ml/min; Glucose 229 mg/dl (70-99(Fasting)); Sodium 137 mmol/L (136-145)
[2023-07-04] MEDS ORDERED: MoRPHine SULFATE 4 MG/ML 1 ML CARP\\VIAL IV PRN (10:59)
[2023-07-04] MEDS ORDERED: PHARMACY GLYCEMIC MGMT CONSULT PRN (10:59)
[2023-07-04] MEDS ORDERED: oxyCODONE HCL IR 5 MG TAB (IMMEDIATE RELEASE) PO PRN (10:59)
[2023-07-04] MEDS ORDERED: MoRPHine SULFATE 2 MG/ML CARP IV PRN (10:59)
[2023-07-04 11:18] LABS: Hematocrit (blood only) 30.1 % (42.0-52.0); Hemoglobin 9.4 g/dl (14.0-18.0); Mean Corpuscular Hemoglobin 27.2 pg (25.0-34.0); Mean Corpuscular Hgb Conc 31.2 g/dL (32.0-36.0); Mean Platelet Volume 9.5 fL (9.4-12.4); Platelet Count 484 K/uL (130-400); RDW Coefficient of Variation 14.3 % (11.5-14.5); RDW Standard Deviation 45.5 fL (36.4-46.3); Red Blood Count 3.46 M/uL (4.70-6.10); White Blood Count 18.29 K/ul (4.8-10.8)
[2023-07-04 11:23] LABS: Basophils # (auto) 0.06 K/uL (0.00-0.20); Basophils % (auto) 0.3 %; Eosinophils # (auto) 0.05 K/uL (0.00-0.50); Eosinophils % (auto) 0.3 %; Immature Granulocytes # (auto) 0.24 K/uL (0.01-0.20); Immature Granulocytes % (auto) 1.3 %; Lymphocytes # (auto) 1.14 K/uL (1.20-3.40); Lymphocytes % (auto) 6.2 %; Monocytes # (auto) 0.69 K/uL (0.11-0.59); Monocytes % (auto) 3.8 %; Neutrophils # (auto) 16.11 K/uL (1.40-6.50); Neutrophils % (auto) 88.1 %
[2023-07-04] MEDS: SODIUM CHLORIDE 0.9% 1,000 ML IV SCH (11:25)
[2023-07-04] MEDS ORDERED: INSULIN ASPART 100 UNITS/ML VIAL SC PRN (11:44)
[2023-07-04] MEDS: ACETAMINOPHEN 325 MG TAB PO SCH (12:09)
[2023-07-04] MEDS: INSULIN, Rapid-Acting PUMP SC SCH (12:11)
[2023-07-04] MEDS: BUPIVACAINE/EPINEPHRINE 0.25% 1:200,000 30 ML VIAL ONE (12:47)
--- NOTE | 2023-07-04 12:47 | Anesthesiology Progress Note ---
Date of Service July 04, 2023 Anesthesia Post Procedure Vital Signs Vital Signs: Temp Pulse Pulse Resp BP Pulse Ox O2 Del Method 07/04/23 12:03 36.6 C 115 H 20 136/74 95 Nasal Cannula 07/04/23 11:30 36.6 C 111 H 18 135/79 94 Nasal Cannula 07/04/23 11:00 Nasal Cannula 07/04/23 11:00 36.7 C 114 H 16 153/82 H 95 Nasal Cannula 07/04/23 10:40 37 C 113 H 18 146/80 H 96 Nasal Cannula 07/04/23 10:30 108 H 14 133/80 97 Oxymask 07/04/23 10:20 109 H 18 128/82 99 Oxymask 07/04/23 10:10 107 H 21 146/74 H 100 Oxymask 07/04/23 10:03 36.2 C L 105 H 12 97/56 L 95 Oxymask 07/04/23 06:19 36.9 C 99 H 16 168/98 H 98 Room Air O2 Flow Rate 07/04/23 12:03 3 07/04/23 11:30 3 07/04/23 11:00 3 07/04/23 11:00 3 07/04/23 10:40 3 07/04/23 10:30 7 07/04/23 10:20 15 07/04/23 10:10 15 07/04/23 10:03 15 07/04/23 06:19 Pain Intensity Left Flank: Pain Intensity: 1 Left Abdomen: Pain Intensity: 1 Transfer of Care Handoff Completed per policy Notes Mental Status: alert / awake / arousable Patient Amnestic to Procedure: Yes Nausea / Vomiting: adequately controlled Pain: adequately controlled Airway Patency, RR, SpO2: stable & adequate BP & HR: stable & adequate Hydration State: stable & adequate Anesthetic Complications: no major complications apparent
[2023-07-04] MEDS: oxyCODONE HCL IR 5 MG TAB (IMMEDIATE RELEASE) PO PRN (16:24)
[2023-07-04] MEDS: Continuous Glucose Monitor SCH (17:21)
[2023-07-04] MEDS: ATORVASTATIN 20 MG TAB PO SCH (20:43)
[2023-07-04] MEDS: DOCUSATE SODIUM 100 MG CAP PO SCH (20:43)
[2023-07-04] MEDS: HEPARIN SOD 5,000 UNIT/0.5 ML VIAL SQ SCH (20:43)
[2023-07-04] MEDS: COUGH DROP (SUGAR FREE) LOZ 24 LOZ/1 BOX BUCCAL ONE (23:53)
[2023-07-05 07:51] LABS: Toxic Vacuolation 1+
[2023-07-05] MEDS: PSYLLIUM or GUAR GUM FIBER 4GM PACKET PO SCH ×2 (08:23→09:42)
[2023-07-05 08:25] LABS: Basophils # (auto) 0.02 K/uL (0.00-0.20); Basophils % (auto) 0.2 %; Eosinophils # (auto) 0.05 K/uL (0.00-0.50); Eosinophils % (auto) 0.6 %; Hematocrit (blood only) 24.9 % (42.0-52.0); Immature Granulocytes # (auto) 0.03 K/uL (0.01-0.20); Immature Granulocytes % (auto) 0.3 %; Lymphocytes # (auto) 1.29 K/uL (1.20-3.40); Mean Corpuscular Hemoglobin 27.3 pg (25.0-34.0); Mean Corpuscular Hgb Conc 32.1 g/dL (32.0-36.0); Mean Platelet Volume 9.2 fL (9.4-12.4); Monocytes # (auto) 0.96 K/uL (0.11-0.59); Monocytes % (auto) 11.1 %; Neutrophils # (auto) 6.26 K/uL (1.40-6.50); Neutrophils % (auto) 72.8 %; Platelet Count 488 K/uL (130-400); RDW Coefficient of Variation 14.1 % (11.5-14.5); RDW Standard Deviation 43.7 fL (36.4-46.3); Red Blood Count 2.93 M/uL (4.70-6.10); White Blood Count 8.61 K/ul (4.8-10.8)
[2023-07-05] MEDS: LOSARTAN POTASSIUM 50 MG TAB PO SCH (08:27)
[2023-07-05] MEDS: SERTRALINE HCL 50 MG TABLET PO SCH (08:27)
[2023-07-05] MEDS: PANTOprazole 40 MG TAB PO SCH (08:27)
[2023-07-05] MEDS: TAMSULOSIN HCL 0.4 MG CAP PO SCH (08:27)
--- NOTE | 2023-07-05 08:33 | Urology Progress Note ---
Date of Service July 05, 2023 Assessment & Plan (1) Left renal mass: Plan: POD #1 s/p Robotic Assisted Left Nephrectomy with Dr. Joaquin Patient is afebrile and hemodynamically stable Subjectively doing well Recovery is on pace Labs reviewedcreatinine 0.81, WBC 8.61, hemoglobin 8.0 Some mild discomfort near incisions, pain adequately controlled Tolerating liquid dietwill advance to regular diabetic diet, DC IV fluids Incisions appropriate Remove Garcia catheter this morning Encouraged ambulation Anticipate home later today presuming he continues to progress as expected Clinical course reviewed with patient, all questions answered Follow-up appointments in place Admission and Anticipated Discharge Date Admission Date: July 04, 2023 Subjective Patient seen and examined at bedside this morning He is awake and sitting up in bed in no apparent distress No acute issues overnight Subjectively feeling well Tolerating clear liquid diet and ready for a regular diet He is passing flatus, no nausea or vomiting Some mild discomfort near incisions Garcia patent and draining clear yellow urine Denies fever or chills Review of Systems Constitutional: as per Subjective / HPI Gastrointestinal: as per Subjective / HPI Genitourinary: + as per Subjective / HPI Physical Exam Constitutional: well developed and well nourished; no acute distress Respiratory: normal respiratory effort; no respiratory distress and no labored breathing Gastrointestinal (Abdomen): Inspection/Auscultation: abdomen normal to inspection Musculoskeletal: Head/Neck/Chest: normocephalic Skin: Incisions C/D/I with Dermabond Neurologic: moves all extremities and awake Psychiatric: Orientation: alert and oriented x 3 Genitourinary: Garcia patent and draining clear yellow urine Results & Data Vital Signs (Past 12 Hours) Vital Signs Temp Pulse Resp BP BP Pulse Ox O2 Del Method 07/05/23 07:00 36.5 C 88 16 158/89 H 96 Room Air 07/05/23 03:53 36.4 C L 100 H 18 150/81 H 97 Room Air 07/04/23 23:00 36.7 C 88 18 141/86 H 95 Room Air PG Care Time/CCT Total # of Minutes Spent Total Time Spent with Patient: Total time spent is greater than 50% in coordination of care (as documented) at patient's floor/unit and/or counseling patient: Coding Level of Care Code None Diagnoses Left renal mass N28.89
[2023-07-05 08:52] LABS: BUN Creatinine Ratio 11.1 (10-20); Calcium 7.9 mg/dl (8.6-10.3); Creatinine Clr Calc Pharmacy 83.3 ml/min; Est GFR (African American) 119.3 ml/min; Est GFR (Non-African American) 102.9 ml/min; Potassium 3.7 mmol/L (3.5-5.1)
--- NOTE | 2023-07-05 12:04 | Discharge Summary ---
Date of Service July 05, 2023 Admission HPI Per Admitting Provider Patient with left renal mass concerning for RCC presents for robotic left radical nephrectomy Admission Exam Per Admitting Provider Shortened stature, walks with a variable spastic gait and crutches because of cerebral palsy Abdomen soft, nontender No hernias or protuberant masses Constitutional well developed and well nourished Neck neck nontender Respiratory normal respiratory effort; no respiratory distress and does not use accessory muscles Cardiovascular Rate/Rhythm: regular rate Vessels: radial pulses present Extremities: no edema Gastrointestinal (Abdomen) Inspection/Auscultation: abdomen normal to inspection Percussion/Palpation: abdomen soft; abdomen nontender and no guarding Musculoskeletal Head/Neck/Chest: normocephalic and head atraumatic Extremities: extremities normal to inspection Skin no rashes and no lesions Trauma: no evidence of skin trauma Neurologic awake; not obtunded Speech / Cognition: normal speech Motor/Sensory: no tremor Psychiatric Orientation: alert and oriented x 3 Genitourinary no CVA tenderness Lymphatic no lymphadenopathy Principal Diagnosis Left renal mass Discharge Exam Constitutional well developed and well nourished; no acute distress Respiratory normal respiratory effort; no respiratory distress and no labored breathing Gastrointestinal (Abdomen) Inspection/Auscultation: abdomen normal to inspection Musculoskeletal Head/Neck/Chest: normocephalic Skin Incisions C/D/I with dermabond Neurologic moves all extremities and awake Psychiatric Orientation: alert and oriented x 3 Genitourinary Patient voiding after catheter removal Discharge Data Allergies Allergy/AdvReac Type Severity Reaction Status Date / Time Sulfa (Sulfonamide Allergy Severe HIVES AND Verified 07/04/23 06:13 Antibiotics) RASH Procedures Performed Operation Date: 07/04/23 07:30 Actual Procedures p Robotic Assisted Left Nephro-Ureterectomy(Left) - Magnus Joaquin MD Hospital Course (1) Left renal mass: POD #1 s/p Robotic Assisted Left Nephrectomy with Dr. Joaquin Patient is afebrile and hemodynamically stable Subjectively doing well Recovery is on pace Labs reviewedcreatinine 0.81, WBC 8.61, hemoglobin 8.0 Some mild discomfort near incisions, pain adequately controlled Tolerating liquid dietwill advance to regular diabetic diet, DC IV fluids Incisions appropriate Remove Garcia catheter this morning Encouraged ambulation Anticipate home later today presuming he continues to progress as expected Patient voiding after catheter removal, ambulating in hallway and tolerating regular diet Discharge orders placed Clinical course reviewed with patient, all questions answered Follow-up appointments in place Total Time Total Time Spent Total Time Spent (In Minutes): 29 Discharge Plan Discharge Items Patient Disposition: Home - Self-Care Reason For Visit: Other Specified Disorders of Kidney and Ureter, Mi Discharge Diagnosis: Left renal mass Activity: Per Instructions section Lifting: No more than 10 pounds Bathing Comment: Okay to shower after discharge, no tub bath or soaking Sexual Activity: Wait until after follow-up appointment Exercise/Sports: Wait until after follow-up appointment Driving/Machine Use: No driving while taking prescription pain medication Non-emergency contact: Surgeon and Urologist Call non-emergency contact if: your pain is not controlled, you have a fever, your wound has increased redness, your wound has increased drainage and your wound pain has increased Follow-up/Referrals: Magnus Joaquin MD [Physician] - 07/26/23 9:45 am Blossom Gibson MD [Primary Care Provider] - Diet: Carb Count or DM1 Addtl Attending Provider Instructions: Please take all medications as prescribed and keep all follow-ups as scheduled. Please call our office at [phone] with any questions, concerns or need to reschedule appointments for any reason. We are happy to assist you. Recovering at home: We recommend having someone with you for the first few days after surgery to help care for you. It is okay to shower tomorrow. Please avoid swimming, bathing or using hot tub until incisions are well healed. Avoid driving until you are not requiring pain medication any further. Walk at least a few times a day. Increase your distance, as you feel able. Stairs in your home are okay. Please avoid strenuous or sexual activity until your follow-up. We recommend using stool softener (i.e. Colace) to prevent constipation and straining, especially the first two weeks post operatively. Call [facility] at [phone] if you experience: Chest pain or trouble breathing (call [phone] or go to the hospital). Fever of 101F or higher Symptoms of infection at incision site, including redness or swelling, warmth, or bad-smelling drainage If you have catheter, and you notice: o Bloody urine or drainage that is dark red or has large clots (Please remember a small amount of blood is normal) o No drainage from the catheter for more than 6 hours o The catheter comes out of your bladder Pain that is not controlled with medicines Pending Studies at Discharge: Yes (pathology) Stand-Alone Forms: My [facility] Meludia, Smoking Cessation Medications and DC Order Prescriptions: New oxycodone-acetaminophen [Percocet] 5-325 mg tablet 1 tab PO TID PRN (Reason: pain) Qty: 14 0RF Rx Instructions: post op pain Continued losartan 50 mg tablet 50 mg PO QAM atorvastatin 20 mg tablet 20 mg PO HS pantoprazole 20 mg tablet,delayed release (DR/EC) 20 mg PO QAM insulin aspart U-100 [Novolog U-100 Insulin aspart] 100 unit/mL solution See Rx Instructions .ROUTE .COMPLEX Rx Instructions: Use up to 90 units daily in insulin pump metformin 500 mg tablet extended release 24 hr 2,000 mg PO QAM sertraline 50 mg tablet 50 mg PO QAM oxycodone 5 mg tablet 5 mg PO Q8H PRN (Reason: pain) Qty: 21 0RF tamsulosin 0.4 mg capsule 0.8 mg PO QAM Qty: 60 0RF psyllium husk [Metamucil] 0.4 gram Capsule 1.2 g PO QAM Discharge Orders: Discharge Order (Routine); Ordered 07/05/23 Ordered By: Stephanie Lopez/Other Patient Handouts: Laparoscopic Nephroureterectomy, Managing Type 1 Diabetes, How Your Kidneys Work, Facts About Diabetes Admission Data Admit Date/Time: 07/04/23 10:02 Attending Provider: Magnus Joaquin Admit Provider: Magnus Joaquin Primary Care Provider: Blossom Gibson Other Interventions: Discharge Summary Assessment (RN) Last Done: 07/05/23 12:15 Coding Level of Care Code 38324 IN/OBS DISCH 30 MIN/LESS Diagnoses Left renal mass N28.89
== END 2023-07-05 14:09 | disposition home or self-care (01) | DRG 657 ==
LOC: ASU 05:53 → OBSVTOIN 10:02 → 3W 10:02 → INTOOBSV 10:02